=== PATIENT | female | born 1955 | race Caucasian/White ===

== ENCOUNTER → 2020-02-20 14:01 | Outpatient (BNVA) | payer MEDICARE, MEDICAID, SELFPAY | PROVIDERS: PCP Internal Medicine; Visit Provider Student in an Organized Health Care Education/Training Program | DX: R76.8 Other specified abnormal immunological findings in serum (principal); M35.01 Sjogren syndrome with keratoconjunctivitis | CPT/HCPCS: Q3014 ==

== ENCOUNTER 2020-02-23 09:45 | Outpatient (REF) | payer MEDICARE, MEDICAID, SELFPAY ==
[2020-02-23 10:33] LABS: MANUAL DIFF FLAG NO
[2020-02-23 10:38] LABS: Basophils Percent Auto 0.5 % (0-2); Eosinophils Absolute Auto 0.1 X10*3/uL (0.0-0.4); Hematocrit 37.4 % (37-47); Hemoglobin 12.5 g/dl (12.0-16.0); Imm Gran Abs Auto 0.03 X10*3/uL (0.00-0.03); Imm Gran Pct Auto 0.8 % (0.0-0.4); Lymphocytes Absolute Auto 1.4 X10*3/uL (1.2-4.9); Lymphocytes Percent Auto 38.2 % (20-40); Mean Corpuscular HGB Conc 33.4 g/dl (31.0-35.0); Mean Corpuscular Hemoglobin 28.2 pg (27.0-33.0); Mean Corpuscular Volume 84.2 fL (80-98); Monocytes Absolute Auto 0.4 X10*3/uL (0.1-1.2); Monocytes Percent Auto 9.6 % (2-11); Neutrophils Absolute Auto 1.7 X10*3/uL (2.0-8.3); Neutrophils Percent Auto 47.9 % (45-73); Platelet Count 264 X10*3/uL (160-400); Red Blood Count 4.44 X10*6/uL (4.20-5.50); Red Cell Distribution Width 13.4 % (11.0-16.0); White Blood Count 3.6 X10*3/uL (4.8-10.8)
[2020-02-23 11:02] LABS: Alanine Aminotransferase 10 U/L (0-31); Albumin Level 4.4 g/dL (3.5-5.0); Alkaline Phosphatase 52 U/L (39-117); Anion Gap 13 (12-20); Aspartate Amino Transferase 15 U/L (5-31); Bilirubin Total 0.9 mg/dL (0.0-1.0); Blood Urea Nitrogen 14 mg/dL (9-16); C Reactive Protein 0.41 mg/dL (< or = 0.50); Calcium 9.4 mg/dL (8.4-10.2); Carbon Dioxide 29 mmol/L (22-29); Chloride 103 mmol/L (96-108); Estimated Glomerular Filt Rate > 60; Glucose Random 86 mg/dL (60-115); Potassium 3.8 mmol/l (3.3-5.1); Sodium 141 mmol/L (135-145); Total Protein 7.1 g/dL (6.5-8.0)
[2020-02-23 11:04] LABS: Appearance Urine CLEAR; Color Urine YELLOW; Glucose Urine UA NEG (NEG); Leukocyte Esterase Urine NEG (NEG); Nitrite Urine NEG (NEG); PH 6.5 (5.0-8.0); Specific Gravity - Urine 1.015 (1.005-1.025); Urine Blood NEG (NEG); Urine Ketones NEG (NEG); Urine Protein NEG (NEG-TRACE)
[2020-02-23 11:12] LABS: RBC Urine 0-2 /HPF (0); WBC Urine 0-2 /HPF (0-4)
[2020-02-23 11:27] LABS: Erythrocyte Sedimentation Rate 25 MM/HR (0-20)
[2020-02-24 13:37] LABS: Anti DNA DS Antibody <1 IU/mL; Complement C3 96 mg/dL (83-193)
== END 2020-02-23 09:46 | disposition home or self-care (01) ==
LOC: HO.LAB 09:45
PROVIDERS: PCP Internal Medicine; Visit Provider Student in an Organized Health Care Education/Training Program
DX: R76.8 Other specified abnormal immunological findings in serum (principal)
CPT/HCPCS: 36415; 80053; 81001; 85025; 85652; 86140; 86160; 86225

== ENCOUNTER → 2020-03-04 11:22 | Outpatient (BNVA) | payer MEDICARE, MEDICAID, SELFPAY | PROVIDERS: PCP Internal Medicine; Visit Provider Physician Assistant | DX: Z13.89 Encounter for screening for other disorder (principal) | CPT/HCPCS: Q3014 ==

== ENCOUNTER 2020-03-24 09:31 | Outpatient (REF) | payer MEDICARE, MEDICAID, SELFPAY ==
--- NOTE | ~2020-03-24 | US_ITS ---
EXAMINATION: US EXTRACRANIAL CAROTID DUPLEX, BILATERAL CLINICAL INFORMATION: Syncope COMPARISON: None TECHNIQUE: Real-time ultrasound and Doppler techniques (integrating B-mode 2-D vascular images, Doppler spectral analysis and color-flow Doppler imaging) were utilized to interrogate the extracranial carotid arteries, the vertebral arteries and proximal subclavian arteries bilaterally. The degree of stenosis is determined by criteria similar to NASCET. FINDINGS: Right Side: 1. There is mild atherosclerotic plaque seen in the bifurcation/proximal ICA region. 2. The common carotid artery PSV proximally is 96.7 cm/s and distally 83.3 cm/s. 3. The proximal internal carotid artery velocities are 44.5 cm/s systolic and 10.5 cm/s diastolic. 4. The proximal external carotid artery PSV is 89.1 cm/s. 5. The vertebral artery shows antegrade flow. 6. The subclavian artery waveforms are normal. Left Side: 1. There is mild atherosclerotic plaque seen in the bifurcation/proximal ICA region. 2. The common carotid artery PSV proximally is 95.6 cm/s and distally 90.3 cm/s. 3. The proximal internal carotid artery velocities are 66.8 cm/s systolic and 18.1 cm/s diastolic. 4. The proximal external carotid artery PSV is 57.8 cm/s. 5. The vertebral artery shows antegrade flow. 6. The subclavian artery waveforms are normal. US/US carotid duplex BI IMPRESSION: 1. RIGHT: Minimal, non-hemodynamically significant stenosis of the proximal right internal carotid artery corresponding to a 0-49% stenosis by velocity criteria. 2. LEFT: Minimal, non-hemodynamically significant stenosis of the proximal left internal carotid artery corresponding to a 0-49% stenosis by velocity criteria.
== END 2020-03-24 09:32 | disposition home or self-care (01) ==
LOC: HO.US 09:31
PROVIDERS: PCP Nurse Practitioner Primary Care; Visit Provider Nurse Practitioner Primary Care
DX: I70.209 Unspecified atherosclerosis of native arteries of extremities, unspecified extremity (principal); R42 Dizziness and giddiness
CPT/HCPCS: 93880

== ENCOUNTER 2020-04-06 12:38 | Outpatient (REF) | payer MEDICARE, MEDICAID, SELFPAY ==
--- NOTE | ~2020-04-06 | MM_ITS ---
EXAMINATION: MM SCREENING DIGITAL BREAST TOMOSYNTHESIS, BILATERAL CLINICAL INFORMATION: Screening. Asymptomatic. No family history breast cancer. Prior mammography from [place] currently unavailable. Age 64. The lifetime risk of breast cancer based on the Tyrer-Cuzick Model is 3%. COMPARISON: None. TECHNIQUE: Digital breast tomosynthesis is performed in both the craniocaudal and mediolateral oblique views along with computer-aided detection (CAD). Synthesized 2D images are generated from the tomosynthesis. Additional right MLO view is provided. FINDINGS: There are scattered areas of fibroglandular density (ACR BI-RADS breast composition Category b). There are no significant masses, abnormal calcifications, or other abnormalities. The axillary and skin contours are unremarkable. MM/MM tomosynthesis screening BI IMPRESSION: No mammographic evidence of malignancy. ASSESSMENT: BI-RADS 1: Negative RECOMMENDATION: Routine annual mammography screening. This patient's information was entered into a reminder system with a target due date for their next mammogram.
== END 2020-04-06 12:39 | disposition home or self-care (01) ==
LOC: HO.MAMMO 12:38
PROVIDERS: PCP Nurse Practitioner Primary Care; Visit Provider Nurse Practitioner Primary Care
DX: Z12.31 Encounter for screening mammogram for malignant neoplasm of breast (principal)
CPT/HCPCS: 77063; 77067

== ENCOUNTER 2020-04-12 11:15 | Day surgery (SDC) | payer MEDICARE, MEDICAID, SELFPAY ==
[2020-04-12 11:24] VITALS: BMI 20.2
[2020-04-12 11:35] VITALS: BMI 20.2
[2020-04-12 11:53] VITALS: BP 126/78; PULSE 107; RESP 20; TEMP 36.2; O2SAT 98
--- NOTE | 2020-04-12 11:57 | W.PM.OPN ---
Operative Note Operative Note Date of Service: 04/16/20 Narrative: Pre-op diagnosis: Colon cancer screening, history of colon polyps, change in bowel habits Post-op diagnosis: other (Colon polyp, diverticulosis, hemorrhoids) Procedure: COLONOSCOPY TILL CECUM WITH BIOPSIES Consent: Indications for the procedure and potential complications of bleeding, perforation, reaction to medications and missed diagnosis were discussed with the patient and informed consent was obtained. Instrument: Olympus PCF H 190 L variable stiffness pediatric colonoscope Monitoring: Vital signs and clinical assessment, intermittent blood pressure monitoring, continuous EKG monitoring, Pulse oximetry and Carbon Dioxide monitoring were done throughout the procedure. Colon withdrawl time was 18 minutes. Procedure: The patient was placed in the left lateral decubitis position and pre-procedure medications were administered. After a digital rectal examination of the ano-rectum, the video colonoscope was inserted into the rectum and advanced through the colon to the cecum. The colonoscope was slowly withdrawn in a retrograde panoramic fashion and the colon mucosa was carefully examined including a retroflexed view of the rectum. Findings and interventions are described below. Procedure Difficulty: Without difficulty Findings: Terminal Ileum: Not evaluated Cecum: Normal Ascending Colon: A 3-4 mm diminutive polyp in proximal AC, removed with the cold biopsy Transverse Colon: Normal Descending Colon: Normal Sigmoid Colon: Moderate diverticulosis Rectum: Normal Ano-rectum: Small internal hemorrhoids Colon preparation: Excellent Impression and Post Procedure Diagnosis: Colonoscopy Findings: One diminutive polyp removed. Random biopsies were obtained from the right and left colon Moderate diverticulosis seen in the sigmoid colon Small hemorrhoids on retroflexed exam. Plan: Await pathology results Patient has an appointment on in the GI Clinic with CRISTÓBAL Gómez. Repeat Colonoscopy interval based on path results - in 5 years if polyps are adenomatous and 10 years if polyps are hyperplastic. Above findings were reviewed with the patient and colon polyps and diverticulosis handouts were given in the discharge area Surgeon: Alvarado Pineda MD Anesthesia: MAC (Dr Mercado) Estimated blood loss (mL): 0 Pathology: other (A. RANDOM BXS COLON B. ASCENDING COLON POLYP C. RANDOM COLON BXS) Condition: stable Disposition: PACU
--- NOTE | 2020-04-12 11:57 | MHC.SHP ---
Pre-Procedural Eval Section A The patient is an INPATIENT: No The History & Physical has been completed within 30 days and I have reviewed it.: No Section B Chief Complaint: Change in Bowel Function Details of Present Illness: Colon cancer screening, hx of colon polyps, change in bowel habits Relevant Family History (Specify if Yes): No Relevant Social History: None Present Medications: see Short Stay Collaborative assessment Medical History: Significant History (JEREMY positive Left breast lump Sjogren's syndrome with keratoconjunctivitis sicca) History of Previous Operations: Relevant previous surgery/procedure and date(s) (H/O: hysterectomy Hx of cholecystectomy) Allergies: Allergies Allergy/AdvReac Type Severity Reaction Status Date / Time No Known Allergies Allergy Verified 02/20/20 14:02 [No Known Allergies*] Review of Systems Sugical H&P ROS: Negative: Constitution, Cardiovascular and Respiratory and Yes, Specify: Gastrointestinal (diarrhea alternating with constipation) Exam Surgical H&P Exam: Normal: Heart, Normal: Lungs, Normal: Extremities and Normal: Abdomen Plan Diagnosis/Plan: Unchanged I have reviewed the history and physical and performed a pertinent physical examination on my patient. No changes have occurred unless specified.
--- NOTE | 2020-04-12 11:58 | HO.ANESPROP2 ---
[facility] Active Problems Active Problems: All Active Problems (Updated 03/04/20 @ 15:26 by Vida Barnett PA-C) Change in bowel function (Acute) Sjogren's syndrome with keratoconjunctivitis sicca (Acute) JEREMY positive (Acute) Past Medical History Medical History JEREMY positive Left breast lump Sjogren's syndrome with keratoconjunctivitis sicca Family History Family History Daughter Asthma Sister SLE (systemic lupus erythematosus related syndrome) Surgical History Surgical History H/O: hysterectomy Hx of cholecystectomy Social History Social History Household Members: Family Are you a primary manager managed care to a significant other at home: Yes Do you presently have visiting nurse or other home services: No Alcohol intake: never Smoking Status: Never smoker Second Hand Smoke Exposure: Yes Use of substances other than those prescribed or required for medical reasons: No Have you been hit, kicked, punched, or otherwise hurt by someone within the past year? If so, by whom?: No Advance Directives: No Advance Directives Information Provided: Yes Recently lost weight without trying: No Current occupational status: unemployed Meds Allergies Allergy/AdvReac Type Severity Reaction Status Date / Time No Known Allergies Allergy Verified 02/20/20 14:02 [No Known Allergies*] Home Medications Medication Instructions Recorded Confirmed Last Taken Type alendronate 70 mg tablet 70 mg PO QWEEK 02/20/20 03/04/20 Unknown History cetirizine 10 mg tablet 10 mg PO DAILY PRN 02/20/20 03/04/20 Unknown History cholecalciferol (vitamin D3) 25 25 mcg PO DAILY 02/20/20 03/04/20 Unknown History mcg (1,000 unit) capsule hydroxyzine HCl 25 mg tablet 25 mg PO BID PRN 02/20/20 03/04/20 Unknown History levothyroxine 50 mcg tablet 50 mcg PO DAILY 02/20/20 03/04/20 Unknown History Exam Exam Date and Time: April 12, 2020 1158 Height,Weight and Vital Signs: Height 5 ft Weight 47.174 kg Airway Mallampati Class: II TM Dist: >3cm Neck ROM: Full Loose/Missing/Broken Teeth: No Heart: RRR Lungs: CTA Assessment and Plan Assessment Anesthesia Assessment: Anesthesia Plan Discussed and Chart Reviewed Final Anesthetic Review NPO: Yes ASA Class: II Final Preanesthetic Review: Meds/Allgs Chart Reviewed, Consent Obtained/Reviewed and Anes Risks/Benef Reviewed Patient Risk: Low Procedure Risk: Low Anesthetic Plan Anesthetic Plan: MAC: Disposition: Standard PACU
[2020-04-12] MEDS: Lactated Ringers 1,000 ML 50 ML IV (12:07)
[2020-04-12 12:45] VITALS: BP 99/62; PULSE 93; RESP 18; TEMP 35.9; O2SAT 100
[2020-04-12 13:00] VITALS: BP 115/68; PULSE 93; RESP 18; O2SAT 99
[2020-04-12 13:15] VITALS: BP 125/70; PULSE 88; RESP 16; O2SAT 100
--- NOTE | 2020-04-12 13:28 | PC.NURSE ---
[id number] OOB CH MONITORS AND IVF DCD IV DCD DRESSED SELF AT BS CALL FRANCO IN REACH
== END 2020-04-12 13:59 | disposition home or self-care (01) ==
PROVIDERS: PCP Internal Medicine; Visit Provider Internal Medicine Gastroenterology
PROC: 0DJD8ZZ Inspection of Lower Intestinal Tract, Via Natural or Artificial Opening Endoscopic (ICD-10-PCS; CPT 45378; principal; 2020-04-12 11:50)
DX: Z12.11 Encounter for screening for malignant neoplasm of colon (principal); Z86.010 Personal history of colon polyps; R19.4 Change in bowel habit; D12.2 Benign neoplasm of ascending colon; K57.30 Diverticulosis of large intestine without perforation or abscess without bleeding; K64.8 Other hemorrhoids; M35.00 Sjogren syndrome, unspecified; Z90.49 Acquired absence of other specified parts of digestive tract
CPT/HCPCS: 45380; 88305

== ENCOUNTER → 2020-04-20 09:02 | Outpatient (REF) | payer MEDICARE, MEDICAID, SELFPAY ==
--- NOTE | 2020-04-20 09:30 | CA_ITS ---
Transthoracic Echocardiogram Patient (Last, First, Middle): Nicolasa Reich, Gender: Female Date of : 1955 Age: 64 Procedure Date: 04/20/2020 Procedure Type: Transthoracic Echocardiogram Location: OP Height: 142.24 cm Weight: 47.17 kg BSA: 1.34 m2 Heart Rate: bpm BP: 116 / 62 mmHg Study Lead: RUDY Referring MD: Rosanne Ayala NP Feather Stitcher: Pedro Buckner MD Symptoms: R42 DIZZINESS GIDDINESS Study Quality: Good ECG Rhythm: Sinus Conclusions: - Essentially normal study Findings Left Ventricle Normal left ventricular size, thickness, and systolic function. The visually estimated ejection fraction is between 60-65%. Diastolic function is normal for age. Right Ventricle Normal right ventricular cavity size and systolic function. Atria Both atria are normal in size. There is a mobile atrial septum noted. Interatrial shunt cannot be excluded. Aortic Valve Normal aortic valve structure and function. There is no aortic valve stenosis. There is no aortic valve regurgitation. Mitral Valve Normal mitral valve structure and function. There is trace mitral valve regurgitation. There is no mitral valve stenosis. Pulmonic Valve The pulmonic valve was not well visualized. Tricuspid Valve Likely normal tricuspid valve structure and function. There is trace tricuspid valve regurgitation. The right ventricular systolic pressure is normal. The right ventricular systolic pressure is 23 mmHg. Normal right atrial pressure. There is no evidence of pulmonary hypertension. Great Vessels All visible segments of the aorta are normal in size. The pulmonary artery was not well visualized. Venous The inferior vena cava is normal in size and collapses greater than 50% with inspiration. Pericardium/Pleural There is no evidence of pericardial effusion. Prior Study Comparison No prior study available for comparison. Recommendations, Care & Conclusions Recommend contrast study to evaluate intracardiac shunting. Measurements 2D Linear Measurements IVSd: 0.65 0.6-0.9/0.6-1.0 cm LVIDd: 3.95 3.9-5.3/4.2-5.9 cm LVIDs: 2.69 2.0-3.6 cm LVPWd: 0.61 0.7-1.1 cm LV Mass: 82.99 67-162/88-224 g LVOT Diam: 1.83 3.0+(-)1.3 cm Mitral Valve MV Pk E: 0.82 MV PK A: 0.73 MV Decel Time: 197.76 E/A: 1.12 E'Lateral: 0.10 E'Medial: 0.07 Decel [place]: 4.14 Aortic Valve AoV Pk Thanh: 1.26 AoV Pk Grad: 6.32 LVOT LVOT Pk Thanh: 0.87 LVOT Mn Thanh: 0.60 LVOT VTI: 0.20 LVOT Pk Grad: 3.05 LVOT Mn Grad: 1.67 LVOT Diam: 1.83 LVOT Area: 2.64 Diastolic Function MV Pk E: 0.82 MV Pk A: 0.73 E/A: 1.12 E'Medial: 0.07 E' Laterial: 0.10 Tricuspid Valve TR Pk Thanh: 2.27 TR Pk Grad: 20.54 RA Press: 3.00 RVSP: 23.00 Great Vessels Aorta Ao Asc: 2.48 2.1-3.4 cm Updated in Other Vendor System with Status of Final Pedro Buckner MD electronically signed on 04/21/2020 5:30:12 PM with status of Final
== END ==
LOC: HO.CARD 09:02
PROVIDERS: PCP Nurse Practitioner Primary Care; Visit Provider Nurse Practitioner Primary Care
DX: R42 Dizziness and giddiness (principal)
CPT/HCPCS: 93306

== ENCOUNTER → 2020-05-03 11:12 | Outpatient (BNVA) | payer MEDICARE, MEDICAID, SELFPAY | PROVIDERS: PCP Nurse Practitioner Primary Care; Visit Provider Physician Assistant | DX: Z13.89 Encounter for screening for other disorder (principal) | CPT/HCPCS: Q3014 ==

== ENCOUNTER 2020-06-17 12:51 | Outpatient (REF) | payer MEDICARE, MEDICAID, SELFPAY ==
--- NOTE | ~2020-06-17 | XR_ITS ---
EXAMINATION: XR SHOULDER, RIGHT CLINICAL INFORMATION: Sigmoid syndrome and conjunctivitis COMPARISON: None TECHNIQUE: AP external rotation, Grashey, scapular Y, and axillary views of the right shoulder. FINDINGS: Bone alignment is normal. No fracture or dislocation is seen. The glenohumeral joint is normal. There is arthritis at the acromioclavicular joint. Soft tissues are unremarkable. XR/XR shoulder RT min 2V IMPRESSION: Arthritis at the acromioclavicular joint.
[2020-06-17 14:18] LABS: MANUAL DIFF FLAG NO
[2020-06-17 14:23] LABS: Basophils Absolute Auto 0.1 X10*3/uL (0.0-0.2); Basophils Percent Auto 1.4 % (0-2); Eosinophils Absolute Auto 0.2 X10*3/uL (0.0-0.4); Eosinophils Percent Auto 4.9 % (0-4); Glucose Urine UA NEG (NEG); Hematocrit 38.2 % (37-47); Hemoglobin 12.4 g/dl (12.0-16.0); Leukocyte Esterase Urine NEG (NEG); Lymphocytes Absolute Auto 1.4 X10*3/uL (1.2-4.9); Lymphocytes Percent Auto 37.8 % (20-40); Mean Corpuscular HGB Conc 32.5 g/dl (31.0-35.0); Mean Corpuscular Hemoglobin 27.4 pg (27.0-33.0); Mean Corpuscular Volume 84.5 fL (80-98); Monocytes Absolute Auto 0.3 X10*3/uL (0.1-1.2); Monocytes Percent Auto 8.7 % (2-11); Neutrophils Absolute Auto 1.7 X10*3/uL (2.0-8.3); Neutrophils Percent Auto 47.2 % (45-73); Nitrite Urine NEG (NEG); Platelet Count 276 X10*3/uL (160-400); Red Blood Count 4.52 X10*6/uL (4.20-5.50); Red Cell Distribution Width 13.2 % (11.0-16.0); Urine Blood NEG (NEG); Urine Ketones NEG (NEG); Urine Protein NEG (NEG-TRACE); White Blood Count 3.7 X10*3/uL (4.8-10.8)
[2020-06-17 14:26] LABS: Appearance Urine CLEAR; Color Urine YELLOW
[2020-06-17 14:49] LABS: Alanine Aminotransferase 11 U/L (0-31); Albumin Level 4.5 g/dL (3.5-5.0); Alkaline Phosphatase 55 U/L (39-117); Anion Gap 12 (12-20); Aspartate Amino Transferase 16 U/L (5-31); Bilirubin Total 0.5 mg/dL (0.0-1.0); Blood Urea Nitrogen 15 mg/dL (9-16); Calcium 9.8 mg/dL (8.4-10.2); Carbon Dioxide 29 mmol/L (22-29); Chloride 105 mmol/L (96-108); Estimated Glomerular Filt Rate > 60; Glucose Random 95 mg/dL (60-115); Sodium 142 mmol/L (135-145)
[2020-06-17 15:00] LABS: Bacteria Urine TRACE /LPF; RBC Urine 0-2 /HPF (0); Squamous Epithelial Cell Urine TRACE /LPF; WBC Urine 0 /HPF (0-4)
[2020-06-17 15:41] LABS: Erythrocyte Sedimentation Rate 17 MM/HR (0-20)
[2020-06-18 09:46] LABS: Anti DNA DS Antibody <1 IU/mL
[2020-06-18 12:47] LABS: Complement C3 123 mg/dL (83-193)
== END 2020-06-17 12:52 | disposition home or self-care (01) ==
LOC: HO.LAB 12:51
PROVIDERS: PCP Internal Medicine; Visit Provider Student in an Organized Health Care Education/Training Program
DX: R76.8 Other specified abnormal immunological findings in serum (principal); M35.01 Sjogren syndrome with keratoconjunctivitis
CPT/HCPCS: 36415; 73030; 80053; 81001; 85025; 85652; 86140; 86160; 86225; 99212

== ENCOUNTER 2020-09-23 10:00 | Outpatient (RCR) | payer MEDICARE, MEDICAID, SELFPAY ==
--- NOTE | 2020-09-15 14:00 | MHC.PT.EP ---
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 OBJECTIVE FINDINGS: LIMITED ROM Rt SH, DECR POSTURE/ TIGHT PECT, WEAKNES IN POST RC/ SCAP MM, AND PAIN IN Rt SH GIRDLE/ SCAP MM. FUNCTIONAL LIMITATIONS INCLUDE DECR ABILITY TO GET DRESSED, SHOWERED, GROCERIES/ LAUNDRY/ HOUSE CHORES DUE TO Rt SH PAIN. Pt'S PAIN IN Rt DELT REGION INFLUENCED HER OVERALL ACTIVITY KIRK- (+) IMPINGEMENT SIGN, POSTURAL INFLUENCE Frequency and Duration: The patient will be seen 2x WK x 5 WKS Short Term Goals: Pt'S Rt SH PAIN DECR TO 2-3/10 W LIGHT ADLs IN 3 WKS Pt INDEP W SELF POSTURAL/ POSITIONING TO REDUCE STRESS ON Rt SH GIRDLE/ CERV SOFT TISSUES IN 2 WKS Pt IMPROVE AROM Rt SH IN 2 WKS Longterm Goals: Pt INDEP HEP AND SELF-SX MGMT TECHN IN 5 WKS Pt IMPROVE Rt SH GIRDLE STRENGTH TO ENABLE HER TO RESUME REG ADLs W/O EXACERB Rt SH IN 5 WKS Treatment Plan: Modalities to reduce pain, spasms and effusion. Manual therapy to restore motion and function. Therapeutic exercise to improve strength and flexibility. Neuromuscular re-education for posture and balance. Therapeutic activities to return to functional activities of daily living. Electronically signed by: Rukhsana Torres,PT Please sign and return to therapist. Thank you for your referral.
--- NOTE | 2020-10-12 13:43 | MHC.PT.DC ---
[facility] [place] Office [place] Office [place] Office [address] Juanita Saavedra [address] [phone] F: [phone] F: [phone] F: [phone] F: [phone] Physical Therapy Discharge Report Diagnosis: Rt SHOULDER PAIN - SICCA SYNDROME W KERATOCONJUNCTIVITIS Date of Surgery: Date of Evaluation: 09/15/20 Date of Discharge: 10/12/20 Treatments to Date: 3 Cancellations to Date: 0 No Shows to Date: 4 Discharge Status: Visit Non-compliance Discharge Summary: Pt has NS x 4 D/C from PT today. Pt DID NOT ACHIEVE HER PT GOALS DUE TO POOR ATTENDANCE / PER NO-SHOW POLICY. Electronically signed by: Eli Rich DATA MINER; DEJAH Torres,PT Please sign and return to therapist. Thank you for your referral.
== END 2020-10-12 13:44 | disposition home or self-care (01) ==
LOC: HO.PT 10:00
PROVIDERS: PCP Nurse Practitioner Primary Care; Visit Provider Student in an Organized Health Care Education/Training Program
DX: M35.01 Sjogren syndrome with keratoconjunctivitis (principal)
CPT/HCPCS: 97110; 97161

== ENCOUNTER → 2020-09-23 13:28 | Outpatient (BNVA) | payer MEDICARE, MEDICAID, SELFPAY | PROVIDERS: PCP Internal Medicine; Visit Provider Student in an Organized Health Care Education/Training Program | DX: M35.01 Sjogren syndrome with keratoconjunctivitis (principal); R76.8 Other specified abnormal immunological findings in serum | CPT/HCPCS: 99212 ==

== ENCOUNTER → 2020-09-30 07:37 | Outpatient (REF) | payer MEDICARE, MEDICAID, SELFPAY ==
--- NOTE | 2020-09-30 07:41 | CA_ITS ---
Transthoracic Echocardiogram Patient (Last, First, Middle): Nicolasa Reich, Gender: Female Date of : 1955 Age: 64 Procedure Date: 09/30/2020 Procedure Type: Transthoracic Echocardiogram Location: OP Height: 157.48 cm Weight: 48.54 kg BSA: 1.47 m2 Heart Rate: bpm Spike Maker: FAIZA Hdez MD: Joel Brown MD Harness Maker: Pedro Buckner MD Symptoms: SYNCOPE Study Quality: Good ECG Rhythm: Sinus Conclusions: - No evidence of PFO Findings Atria There is no evidence of interatrial shunt by agitated saline. Prior Study Comparison No significant change compared to prior study dated: 04/20/2020. Updated in Other Vendor System with Status of Final Pedro Buckner MD electronically signed on 09/30/2020 12:44:56 PM with status of Final
== END ==
LOC: HO.CARD 07:37
PROVIDERS: Visit Provider Internal Medicine Cardiovascular Disease
DX: R55 Syncope and collapse (principal)
CPT/HCPCS: 93308

== ENCOUNTER 2021-01-18 10:42 | Outpatient (REF) | payer MEDICARE, MEDICAID, SELFPAY | END 2021-01-18 10:43 | disposition home or self-care (01) | LOC: HO.LAB 10:42 | PROVIDERS: Visit Provider Internal Medicine | DX: Z20.822 Contact with and (suspected) exposure to COVID-19 (principal) | CPT/HCPCS: C9803; U0003; U0005 ==

== ENCOUNTER 2021-06-08 14:43 | Outpatient (REF) | payer MEDICARE, MEDICAID, SELFPAY ==
--- NOTE | ~2021-06-08 | MM_ITS ---
EXAMINATION: MM SCREENING DIGITAL BREAST TOMOSYNTHESIS, BILATERAL CLINICAL INFORMATION: Screening. Asymptomatic. The lifetime risk of breast cancer based on the Tyrer-Cuzick Model is 2%. COMPARISON: Mammography: 04/06/2020 (new baseline). TECHNIQUE: Digital breast tomosynthesis is performed in both the craniocaudal and mediolateral oblique views along with computer-aided detection (CAD). Synthesized 2D images are generated from the tomosynthesis. FINDINGS: There are scattered areas of fibroglandular density (ACR BI-RADS breast composition Category b). Right breast parenchymal pattern is similar to prior new baseline exam. There is no developing density or interval mass. Neither breast shows abnormal calcifications. The axilla and skin contours are unremarkable. Left MLO view has subtle nodular asymmetric density mid depth approximately 0.8 cm size. There is no correlate on CC view and finding is likely related to incompletely compressed glandular tissue or summation artifact. Patient will be recalled for additional imaging. MM/MM tomosynthesis screening BI IMPRESSION: Left: -Asymmetric density central breast on MLO view, likely summation artifact or incompletely compressed glandular tissue. Right: No mammographic evidence of malignancy. ASSESSMENT: BI-RADS 0: Incomplete - Need Additional Imaging Evaluation RECOMMENDATION: 1. Additional views of the left breast (spot MLO, standard ML). 2. Targeted ultrasound if warranted after review of the additional views. 3. Radiology department staff will contact the patient for additional imaging. This patient's information was entered into a reminder system with a target due date for their next mammogram.
== END 2021-06-08 14:44 | disposition home or self-care (01) ==
LOC: HO.MAMMO 14:43
PROVIDERS: PCP Nurse Practitioner Primary Care; Visit Provider Internal Medicine
DX: Z12.31 Encounter for screening mammogram for malignant neoplasm of breast (principal)
CPT/HCPCS: 77063; 77067

== ENCOUNTER 2021-06-20 14:17 | Outpatient (REF) | payer MEDICARE, MEDICAID, SELFPAY ==
--- NOTE | ~2021-06-20 | MM_ITS ---
EXAMINATION: MM DIAGNOSTIC DIGITAL MAMMOGRAPHY, LEFT CLINICAL INFORMATION: Recall from screening for asymmetric density central breast on MLO view, likely summation artifact or incompletely compressed glandular tissue. COMPARISON: Mammography: 06/08/2021, 04/06/2020 (new baseline). TECHNIQUE: Digital mammography is performed in the following views: ML, spot MLO. FINDINGS: There are scattered areas of fibroglandular density (ACR BI-RADS breast composition Category b). The additional views show fibroglandular densities similar to the new baseline exam 2020. There is no interval mass or architectural abnormality. Results are discussed with the patient at time of visit, using an awning spreader. MM/MM added views LT IMPRESSION: Additional views show fibroglandular densities similar to new baseline exam 2020. ASSESSMENT: BI-RADS 2: Benign RECOMMENDATION: Routine annual mammography screening. This patient's information was entered into a reminder system with a target due date for their next mammogram.
== END 2021-06-20 14:18 | disposition home or self-care (01) ==
LOC: HO.MAMMO 14:17
PROVIDERS: PCP Nurse Practitioner Primary Care; Visit Provider Internal Medicine
DX: N64.89 Other specified disorders of breast (principal)
CPT/HCPCS: 77065

== ENCOUNTER 2021-10-02 14:06 | Emergency (ER) | payer MEDICARE, MEDICAID, SELFPAY ==
--- NOTE | ~2021-10-02 | XR_ITS ---
EXAMINATION: XR CHEST CLINICAL INFORMATION: Dizziness COMPARISON: Chest x-ray 04/07/2019 TECHNIQUE: Frontal view of the chest was obtained. FINDINGS: The lungs are clear. No airspace consolidation, pleural effusion, or pneumothorax. The cardiomediastinal silhouette is within normal limits. No acute osseous injury. Surgical clips in the right upper quadrant consistent with prior cholecystectomy. XR/XR chest 1V IMPRESSION: No acute pulmonary process.
--- NOTE | ~2021-10-02 | CT_ITS ---
EXAMINATION: CT HEAD WITHOUT CONTRAST CLINICAL INFORMATION: Dizziness COMPARISON: Head CT April 07, 2019 TECHNIQUE: Contiguous axial imaging was performed from the skull base to vertex without intravenous administration of contrast. This CT examination was performed using dose optimization techniques as appropriate, variously including the following: *Automated exposure control *Adjustment of mA and/or kV according to patient size (this includes techniques or standardized protocols for targeted exams where dose is matched to indication/reason for exam; i.e. extremities or head) *Use of iterative reconstruction technique DLP: 540 mGy-cm FINDINGS: There is no evidence of acute intracranial hemorrhage or territorial infarction. No abnormal mass effect or midline shift is appreciated. Cordero-white differentiation is well preserved. No extra-axial fluid collections. The ventricular system and cortical sulci are normal in size The osseous structures and soft tissues are normal. The visualized paranasal sinuses and mastoid air cells are well aerated. CT/CT head/brain wo con IMPRESSION: No CT evidence for acute intracranial pathology.
[2021-10-02 14:09] VITALS: BP 166/83; PULSE 105; RESP 19; TEMP 36.6; O2SAT 98; BMI 21.2
--- NOTE | 2021-10-02 14:51 | ECG_ITS ---
Test Reason : Dizziness Blood Pressure : / mmHG Vent. Rate : 088 BPM Atrial Rate : 088 BPM P-R Int : 168 ms QRS Dur : 080 ms QT Int : 356 ms P-R-T Axes : 066 011 044 degrees QTc Int : 430 ms Normal sinus rhythm with sinus arrhythmia Normal ECG When compared with ECG of 07-APR-2019 18:10, Heart rate has decreased Referred By: Zaki Bowles Electronically Signed By:MARK GARCIAS
--- NOTE | 2021-10-02 14:52 | ED_ITS ---
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 Patient is complaining of dizziness described as room spinning and walking unbalanced, patient's symptoms started 18 days ago, symptoms were intermittent comes and goes, for the past 2-3 days symptoms been constant all day, dizziness is worsening with changing position or turning the head from side to side, declined any other neurological deficit or numbness. Patient stated that her dizziness started after using Fosamax for osteoporosis. No relieving factor but symptoms is worsening with changing position, associated with nausea but no vomiting. Patient had similar symptoms about a year ago was seen and evaluated by outside neurologist patient stated that she had a CT and MRI of the head. Related Data Home Medications Medication Instructions Recorded Confirmed alendronate 70 mg tablet (Fosamax) 70 mg PO QWEEK 02/20/20 09/23/20 cholecalciferol (vitamin D3) 25 25 mcg PO DAILY 02/20/20 09/23/20 mcg (1,000 unit) capsule levothyroxine 50 mcg tablet 50 mcg PO DAILY 02/20/20 09/23/20 (Synthroid) Previous Rx's Medication Instructions Recorded acetaminophen 650 mg 650 mg PO Q8H PRN pain #90 tabs 09/23/20 tablet,extended release (Tylenol Arthritis Pain) diazepam 2 mg tablet (Valium) 2 mg PO BEDTIME PRN dizziness or 10/02/21 vertigo #7 tabs meclizine 25 mg tablet 25 mg PO BID PRN motion sickness 10/02/21 #20 tabs Allergies Allergy/AdvReac Type Severity Reaction Status Date / Time No Known Allergies Allergy Verified 09/23/20 13:35 [No Known Allergies*] Review of Systems Review of Systems: All other systems are reviewed and are negative Constitutional: Reports as per HPI and Reports no additional constitutional complaints Eyes: Reports as per HPI and Reports no additional eye complaints Reports system reviewed and no additional complaints, except as documented Cardiovascular: Reports as per HPI and Reports no additional cardiovascular complaints Respiratory: Reports as per HPI and Reports no additional respiratory complaints Gastrointestinal: Reports as per HPI and Reports no additional gastrointestinal complaints Genitourinary: Reports no additional female genitourinary complaints Musculoskeletal: Reports no additional musculoskeletal complaints Skin/Breast: Reports system reviewed and no additional complaints, except as docu Psychiatric: Reports no additional psychiatric complaints Endocrine: Reports no additional endocrine complaints Hematologic/Lymphatic: Reports no additional hematologic/lymphatic complaints Allergic/Immunologic: Reports no additional allergic/immunologic complaints Reports system reviewed and no additional complaints, except as documented and Reports Abnormal speech present [facility] Past Medical History Medical History JEREMY positive Left breast lump Sjogren's syndrome with keratoconjunctivitis sicca Surgical History H/O: hysterectomy Hx of cholecystectomy Family History Family History Daughter Asthma Sister SLE (systemic lupus erythematosus related syndrome) Social History Social History Household Members: Family 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 education 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 a 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 Blood pressure normal. Heart rate normal. Respiration rate normal. Temperature normal. O xygen saturation normal. Appearance: Alert. Oriented X3. No acute distress. Head: Normal external exam. Normocephalic. Atraumatic. No Mitchell signs noted. No raccoon eyes noted Eyes: PERRLA. EOMI. Conjunctiva and sclera normal. Eyelids normal. ENT: TM's Normal. Pharynx normal. Uvula midline. Moist mucous membranes. No trismus noted. No drooling noted. No muffled voice noted. Neck: Normal inspection. Neck supple. FROM. No adenopathy. Thyroid Normal. No meningeal signs. No neck mass noted. CVS: Normal heart rate and rhythm. Heart sound normal. No murmurs noted. Pulses normal throughout. Respiratory: No respiratory distress. Painless inspiration. Breath sounds normal. No wheezes/rales/rhonchi noted. Chest nontender. No accessory muscle usage noted or decreased air movement noted. Abdomen: Soft and nontender. Bowel sounds normal in all 4 quadrants. No dis tention noted. No organomegaly noted. No visible injury noted. Back: No CVA tenderness. Full range of motion noted. Skin: Skin warm and dry. Normal skin color. Normal skin turgor. No rashes/les ions/lacerations noted. Extremities: No lower extremity edema. Extremities exhibit normal range of motion. Extremities nontender. Neuro: Oriented X 3. Cranial nerve exam: II-XII are grossly intact No motor deficit. No sensory deficit. Reflexes normal. Cerebellar exam is within normal no [id number] dysmetria. Course Course Course Narrative: [age] female with chronic history of vertigo patient had multiple evaluation by several doctors including neurologist, and patient reported she had a negative CT/MRI done in [place], no other neurological deficit, patient feels better after given Valium and meclizine in the ED. as discussed with the patient to be careful when changing position to avoid mechanical falling and follow-up with ENT Dr. Chang as an outpatient. [facility] - Dizziness Medical Records Attestation: I reviewed the patient's medical records. Lab Data Attestation: I reviewed the patient's lab results. Result diagrams: 10/02/21 15:25 10/02/21 15:25 Labs: Lab Results 10/02/21 10/02/21 10/02/21 Range/Units 15:25 15:25 15:25 WBC 3.3 L (4.8-10.8) X10*3/uL RBC 4.48 (4.20-5.50) X10*6/uL Hgb 12.3 (12.0-16.0) g/dl Hct 36.5 L (37.0-47.0) % MCV 81.5 (80.0-98.0) fL MCH 27.5 (27.0-33.0) pg MCHC 33.7 (31.0-35.0) g/dl RDW 13.8 (11.0-16.0) % Plt Count 241 (160-400) X10*3/uL MPV 9.8 (9.4-12.3) fL Immature Gran % (Auto) 0.3 (0.0-0.4) % Neut % (Auto) 54.8 (45-73) % Lymph % (Auto) 28.4 (20-40) % Doddridge % (Auto) 11.7 H (2-11) % Eos % (Auto) 3.9 (0-4) % Baso % (Auto) 0.9 (0-2) % Lymph # (Auto) 1.0 L (1.2-4.9) X10*3/uL Doddridge # (Auto) 0.4 (0.1-1.2) X10*3/uL Eos # (Auto) 0.1 (0.0-0.4) X10*3/uL Baso # (Auto) 0.0 (0.0-0.2) X10*3/uL Abs Immat Gran (auto) 0.01 (0.00-0.03) X10*3/uL Absolute Neuts (auto) 1.8 L (2.0-8.3) x10*3/uL Absolute Nucleated RBC 0.000 (0.0-0.012) X10*3/uL Nucleated RBC % (auto) 0.0 (0.0-0.2) /100WBC Sodium 141 (135-145) mmol/L Potassium 3.4 (3.3-5.1) mmol/L Chloride 103 (96-108) mmol/L Carbon Dioxide 27 (22-29) mmol/L Anion Gap 14 (12-20) BUN 11 (9-16) mg/dL Creatinine 0.70 (0.5-1.4) mg/dL Estim Creat Clear Calc 53.1 Estimated GFR > 60 Random Glucose 120 H (60-115) mg/dL Calcium 9.2 D (8.4-10.2) mg/dL Total Bilirubin 0.8 (0.0-1.0) mg/dL Direct Bilirubin 0.3 (0.0-0.5) mg/dL AST 16 (5-31) U/L ALT 11 (0-31) U/L Alkaline Phosphatase 59 (39-117) U/L Troponin I High Sens < 3.5 (<3.5-17.0) ng/L B-Natriuretic Peptide 40 (<100) pg/mL Total Protein 7.2 (6.5-8.0) g/dL Albumin 4.4 (3.5-5.0) g/dL Lipase 27 (8-78) U/L Urine Color Urine Appearance Urine pH (5.0-8.0) Ur Specific Jones (1.005-1.025) Urine Protein (Neg-Trace) mg/dL Urine Glucose (UA) (Negative) mg/dL Urine Ketones (Negative) mg/dL Urine Blood (Negative) Urine Nitrite (Negative) Ur Leukocyte Esterase (Negative) COVID-19 (JEREMY) (Negative) COVID-19 Clin Com 10/02/21 10/02/21 Range/Units 15:25 15:48 WBC (4.8-10.8) X10*3/uL RBC (4.20-5.50) X10*6/uL Hgb (12.0-16.0) g/dl Hct (37.0-47.0) % MCV (80.0-98.0) fL MCH (27.0-33.0) pg MCHC (31.0-35.0) g/dl RDW (11.0-16.0) % Plt Count (160-400) X10*3/uL MPV (9.4-12.3) fL Immature Gran % (Auto) (0.0-0.4) % Neut % (Auto) (45-73) % Lymph % (Auto) (20-40) % Doddridge % (Auto) (2-11) % Eos % (Auto) (0-4) % Baso % (Auto) (0-2) % Lymph # (Auto) (1.2-4.9) X10*3/uL Doddridge # (Auto) (0.1-1.2) X10*3/uL Eos # (Auto) (0.0-0.4) X10*3/uL Baso # (Auto) (0.0-0.2) X10*3/uL Abs Immat Gran (auto) (0.00-0.03) X10*3/uL Absolute Neuts (auto) (2.0-8.3) x10*3/uL Absolute Nucleated RBC (0.0-0.012) X10*3/uL Nucleated RBC % (auto) (0.0-0.2) /100WBC Sodium (135-145) mmol/L Potassium (3.3-5.1) mmol/L Chloride (96-108) mmol/L Carbon Dioxide (22-29) mmol/L Anion Gap (12-20) BUN (9-16) mg/dL Creatinine (0.5-1.4) mg/dL Estim Creat Clear Calc Estimated GFR Random Glucose (60-115) mg/dL Calcium (8.4-10.2) mg/dL Total Bilirubin (0.0-1.0) mg/dL Direct Bilirubin (0.0-0.5) mg/dL AST (5-31) U/L ALT (0-31) U/L Alkaline Phosphatase (39-117) U/L Troponin I High Sens (<3.5-17.0) ng/L B-Natriuretic Peptide (<100) pg/mL Total Protein (6.5-8.0) g/dL Albumin (3.5-5.0) g/dL Lipase (8-78) U/L Urine Color Yellow Urine Appearance Clear Urine pH 7.0 (5.0-8.0) Ur Specific Jones <= 1.005 (1.005-1.025) Urine Protein Negative (Neg-Trace) mg/dL Urine Glucose (UA) Negative (Negative) mg/dL Urine Ketones Negative (Negative) mg/dL Urine Blood Negative (Negative) Urine Nitrite Negative (Negative) Ur Leukocyte Esterase Negative (Negative) COVID-19 (JEREMY) Negative (Negative) COVID-19 Clin Com See Note Imaging Data Chest x-ray: Attestation: I personally reviewed and interpreted this imaging study as follows: Radiologist's impression: No acute pulmonary process CT scan - head: Attestation: I personally reviewed and interpreted this imaging study as f ollows: Radiologist's impression: No CT evidence for acute intracranial pathology. ECG Data Attestation: I personally reviewed and interpreted this ECG as follows: Interpretation: Normal sinus rhythm with sinus arrhythmia at 88 beats per minutes, normal intervals, no ST-T changes. Discharge Plan Discharge Clinical Impression: Benign paroxysmal positional vertigo Patient Disposition: Home, Self-Care Instructions: Benign Paroxysmal Positional Vertigo (ED) Prescriptions: New meclizine 25 mg tablet 25 mg PO BID PRN (Reason: motion sickness) Qty: 20 0RF diazepam [Valium] 2 mg tablet 2 mg PO BEDTIME PRN (Reason: dizziness or vertigo) Qty: 7 0RF No Action levothyroxine [Synthroid] 50 mcg tablet 50 mcg PO DAILY cholecalciferol (vitamin D3) 25 mcg (1,000 unit) capsule 25 mcg PO DAILY alendronate [Fosamax] 70 mg tablet 70 mg PO QWEEK acetaminophen [Tylenol Arthritis Pain] 650 mg tablet extended release 650 mg PO Q8H PRN (Reason: pain) Qty: 90 4RF Referrals: Kwasi Chang [Physician] - Rosanne Ayala ROOM SERVICE WAITER/WAITRESS [Primary Care Provider] -
[2021-10-02 15:32] LABS: MANUAL DIFF FLAG NO
[2021-10-02] MEDS: ondansetron HCL 4 MG/2 ML VIAL IVPUSH (15:34)
[2021-10-02] MEDS: Meclizine HCl 25 MG TABLET PO (15:34)
[2021-10-02] MEDS: diazePAM 2 MG TABLET PO (15:34)
[2021-10-02] MEDS: 0.9 % Sodium Chloride 1,000 ML 999 ML IV ×2 (15:40)
[2021-10-02 15:47] LABS: Basophils Percent Auto 0.9 % (0-2); Eosinophils Absolute Auto 0.1 X10*3/uL (0.0-0.4); Eosinophils Percent Auto 3.9 % (0-4); Hematocrit 36.5 % (37.0-47.0); Hemoglobin 12.3 g/dl (12.0-16.0); Imm Gran Abs Auto 0.01 X10*3/uL (0.00-0.03); Imm Gran Pct Auto 0.3 % (0.0-0.4); Lymphocytes Percent Auto 28.4 % (20-40); Mean Corpuscular HGB Conc 33.7 g/dl (31.0-35.0); Mean Corpuscular Hemoglobin 27.5 pg (27.0-33.0); Mean Corpuscular Volume 81.5 fL (80.0-98.0); Mean Platelet Volume 9.8 fL (9.4-12.3); Monocytes Absolute Auto 0.4 X10*3/uL (0.1-1.2); Monocytes Percent Auto 11.7 % (2-11); Neutrophils Absolute Auto 1.8 x10*3/uL (2.0-8.3); Neutrophils Percent Auto 54.8 % (45-73); Platelet Count 241 X10*3/uL (160-400); Red Blood Count 4.48 X10*6/uL (4.20-5.50); Red Cell Distribution Width 13.8 % (11.0-16.0); White Blood Count 3.3 X10*3/uL (4.8-10.8)
[2021-10-02 15:48] LABS: Alanine Aminotransferase 11 U/L (0-31); Albumin Level 4.4 g/dL (3.5-5.0); Alkaline Phosphatase 59 U/L (39-117); Anion Gap 14 (12-20); Aspartate Amino Transferase 16 U/L (5-31); Bilirubin Direct 0.3 mg/dL (0.0-0.5); Bilirubin Total 0.8 mg/dL (0.0-1.0); Blood Urea Nitrogen 11 mg/dL (9-16); Calcium 9.2 mg/dL (8.4-10.2); Carbon Dioxide 27 mmol/L (22-29); Chloride 103 mmol/L (96-108); Creatinine Clr Calc Pharmacy 53.1; Estimated Glomerular Filt Rate > 60; Glucose Random 120 mg/dL (60-115); Lipase 27 U/L (8-78); Potassium 3.4 mmol/L (3.3-5.1); Sodium 141 mmol/L (135-145); Total Protein 7.2 g/dL (6.5-8.0)
[2021-10-02 15:49] LABS: COVID-19 Test Negative (Negative)
[2021-10-02 15:55] LABS: B Type Natriuretic Peptide 40 pg/mL (<100); Troponin-I High Sensitivity < 3.5 ng/L (<3.5-17.0)
[2021-10-02 15:58] LABS: Appearance Urine Clear; Color Urine Yellow; Glucose Urine UA Negative (Negative); Leukocyte Esterase Urine Negative (Negative); Nitrite Urine Negative (Negative); Specific Gravity - Urine <= 1.005 (1.005-1.025); Urine Blood Negative (Negative); Urine Ketones Negative (Negative); Urine Protein Negative (Neg-Trace)
== END 2021-10-02 17:06 | disposition home or self-care (01) ==
PROVIDERS: Emergency Provider Emergency Medicine; PCP Nurse Practitioner Primary Care
DX: H81.13 Benign paroxysmal vertigo, bilateral (principal); R51.9 Headache, unspecified; R06.02 Shortness of breath; Z20.822 Contact with and (suspected) exposure to COVID-19; Z79.899 Other long term (current) drug therapy
CPT/HCPCS: 70450; 71045; 80048; 80076; 81003; 83690; 83880; 84484; 85025; 87635; 93005; 96374; 99284; J2405

== ENCOUNTER 2022-06-27 07:36 | Outpatient (REF) | payer MEDICARE, MEDICAID, SELFPAY ==
--- NOTE | ~2022-06-27 | XR_ITS ---
EXAMINATION: XR KNEE, RIGHT XR KNEE, LEFT XR KNEE AP STANDING CLINICAL INFORMATION: Bilateral primary osteoarthritis. COMPARISON: None available. TECHNIQUE: Four views of the right knee. Four views of the left knee. AP bilateral standing view of the knees was obtained. FINDINGS: RIGHT KNEE: Bones and soft tissues are normal. No fracture or joint effusion. Alignment is anatomic. Joint spaces are well maintained. No abnormal soft tissue calcification. LEFT KNEE: Bones and soft tissues are normal. No fracture or joint effusion. Alignment is anatomic. Joint spaces are well maintained. No abnormal soft tissue calcification. XR/XR knee LT 3V IMPRESSION: Unremarkable bilateral knees.
--- NOTE | ~2022-06-27 | XR_ITS ---
EXAMINATION: XR KNEE, RIGHT XR KNEE, LEFT XR KNEE AP STANDING CLINICAL INFORMATION: Bilateral primary osteoarthritis. COMPARISON: None available. TECHNIQUE: Four views of the right knee. Four views of the left knee. AP bilateral standing view of the knees was obtained. FINDINGS: RIGHT KNEE: Bones and soft tissues are normal. No fracture or joint effusion. Alignment is anatomic. Joint spaces are well maintained. No abnormal soft tissue calcification. LEFT KNEE: Bones and soft tissues are normal. No fracture or joint effusion. Alignment is anatomic. Joint spaces are well maintained. No abnormal soft tissue calcification. XR/XR knee RT 3V IMPRESSION: Unremarkable bilateral knees.
--- NOTE | ~2022-06-27 | XR_ITS ---
EXAMINATION: XR CHEST 2 VIEWS CLINICAL INFORMATION: Cough. COMPARISON: Chest radiograph dated 10/02/2021. TECHNIQUE: Frontal and lateral views of the chest were obtained. FINDINGS: The heart, great vessels, pulmonary vasculature and mediastinum are normal. There is a full inspiration. The lungs show no focal infiltrate, effusion or pneumothorax. There is no acute osseous abnormality. XR/XR chest 2V IMPRESSION: No active cardiopulmonary disease.
--- NOTE | ~2022-06-27 | XR_ITS ---
EXAMINATION: XR KNEE, RIGHT XR KNEE, LEFT XR KNEE AP STANDING CLINICAL INFORMATION: Bilateral primary osteoarthritis. COMPARISON: None available. TECHNIQUE: Four views of the right knee. Four views of the left knee. AP bilateral standing view of the knees was obtained. FINDINGS: RIGHT KNEE: Bones and soft tissues are normal. No fracture or joint effusion. Alignment is anatomic. Joint spaces are well maintained. No abnormal soft tissue calcification. LEFT KNEE: Bones and soft tissues are normal. No fracture or joint effusion. Alignment is anatomic. Joint spaces are well maintained. No abnormal soft tissue calcification. XR/XR knee standing BI IMPRESSION: Unremarkable bilateral knees.
[2022-06-27 09:56] LABS: MANUAL DIFF FLAG NO
[2022-06-27 10:23] LABS: Basophils Absolute Auto 0.1 X10*3/uL (0.0-0.2); Basophils Percent Auto 1.2 % (0-2); Eosinophils Absolute Auto 0.4 X10*3/uL (0.0-0.4); Eosinophils Percent Auto 10.3 % (0-4); Hematocrit 36.8 % (37.0-47.0); Hemoglobin 12.3 g/dl (12.0-16.0); Imm Gran Abs Auto 0.01 X10*3/uL (0.00-0.03); Imm Gran Pct Auto 0.2 % (0.0-0.4); Lymphocytes Absolute Auto 1.2 X10*3/uL (1.2-4.9); Lymphocytes Percent Auto 27.6 % (20-40); Mean Corpuscular HGB Conc 33.4 g/dl (31.0-35.0); Mean Corpuscular Hemoglobin 27.8 pg (27.0-33.0); Mean Corpuscular Volume 83.1 fL (80.0-98.0); Mean Platelet Volume 9.8 fL (9.4-12.3); Monocytes Absolute Auto 0.4 X10*3/uL (0.1-1.2); Monocytes Percent Auto 9.6 % (2-11); Neutrophils Absolute Auto 2.1 x10*3/uL (2.0-8.3); Neutrophils Percent Auto 51.1 % (45-73); Platelet Count 231 X10*3/uL (160-400); Red Blood Count 4.43 X10*6/uL (4.20-5.50); Red Cell Distribution Width 13.5 % (11.0-16.0); White Blood Count 4.2 X10*3/uL (4.8-10.8)
[2022-06-27 10:58] LABS: Alanine Aminotransferase 15 U/L (0-31); Albumin Level 4.4 g/dL (3.5-5.0); Alkaline Phosphatase 57 U/L (39-117); Anion Gap 13 (12-20); Aspartate Amino Transferase 19 U/L (5-31); Bilirubin Total 0.8 mg/dL (0.0-1.0); Blood Urea Nitrogen 11 mg/dL (9-16); C Reactive Protein 0.64 mg/dL (< or = 0.50); Calcium 9.7 mg/dL (8.4-10.2); Carbon Dioxide 28 mmol/L (22-29); Chloride 104 mmol/L (96-108); Estimated Glomerular Filt Rate > 60; Glucose Random 89 mg/dL (60-115); Potassium 3.7 mmol/L (3.3-5.1); Rheumatoid Factor < 13.0 IU/mL (<15.0); Sodium 141 mmol/L (135-145); Total Protein 7.4 g/dL (6.5-8.0)
[2022-06-27 11:21] LABS: Erythrocyte Sedimentation Rate 29 MM/HR (0-20)
[2022-06-27 12:18] LABS: Creatinine Urine 67.32 mg/dL; Total Protein Urine Random < 7 mg/dL (<12)
[2022-06-28 04:39] LABS: HBS Num1 56.18 mIU/mL (0-7.99); HBsAGNum1 0.35 S/CO (0.00-0.99); Hepatitis A Antibody IgM 0.41 Index (0-0.79); Hepatitis B Core Antibody Nonreactive (Nonreactive); Hepatitis B Surface Antigen Negative (Negative); ~HepC Num1 0.06 S/CO (0.00-0.79); ~Hepatitis A Antibody IgM Nonreactive (Nonreactive); ~Hepatitis B Surface Antibody REACTIVE (Nonreactive); ~Hepatitis C Antibody Nonreactive (Nonreactive)
[2022-06-28 18:44] LABS: Complement C3 103 mg/dL (83-193)
[2022-06-29 13:48] LABS: Cyclic Citrullinated Peptide <16 UNITS
[2022-06-29 17:53] LABS: Anti DNA DS Antibody <1 IU/mL; Antibody to SS-A Antigen >8.0 POS AI (<1.0 NEG); Antibody to SS-B Antigen <1.0 NEG AI (<1.0 NEG); SM/Ribonucleoprotein Ab <1.0 NEG AI (<1.0 NEG); Smith Protein <1.0 NEG AI (<1.0 NEG)
[2022-06-29 22:43] LABS: TS Negative Control Passed; TS Panel A 0; TS Panel B 0; TS Positive Control Passed; TSpotTB Negative (Negative)
[2022-06-29 23:24] LABS: Prot Elec - Albumin 4.2 g/dL (3.8-4.8); Prot Elec - Alpha1 0.3 g/dL (0.2-0.3); Prot Elec - Beta 1 0.5 g/dL (0.4-0.6); Prot Elec - Beta 2 0.4 g/dL (0.2-0.5); Prot Elec - Gamma 0.9 g/dL (0.8-1.7); Prot Elec - Total Protein 7.3 g/dL (6.1-8.1)
[2022-07-04 10:18] LABS: IgA 350 mg/dL (70-320); IgG 952 mg/dL (600-1540); IgM 81 mg/dL (50-300)
[2022-07-04 11:59] LABS: Centromere Protein A Ab <11 SI (<11); Centromere Protein B Ab <11 SI (<11); Fibrillarin Ab <11 SI (<11); PM SCL 100 Ab <11 SI (<11); PM SCL 75 Ab <11 SI (<11); RNA Polymerase III RP11 Ab <11 SI (<11); RNA Polymerase III RP155 Ab <11 SI (<11); SCL-70 Extractable Nuclear Ab <11 SI (<11); Th-To Ab <11 SI (<11); U1 SNRNP RNP 70KD <11 SI (<11); U1 SNRNP RNP A <11 SI (<11); U1 SNRNP RNP C <11 SI (<11)
== END 2022-06-27 07:37 | disposition home or self-care (01) ==
LOC: HO.XRAY 07:36
PROVIDERS: PCP Nurse Practitioner Primary Care; Visit Provider Student in an Organized Health Care Education/Training Program
DX: M17.0 Bilateral primary osteoarthritis of knee (principal); M35.01 Sjogren syndrome with keratoconjunctivitis; R76.8 Other specified abnormal immunological findings in serum; M81.0 Age-related osteoporosis without current pathological fracture; M34.9 Systemic sclerosis, unspecified; M25.541 Pain in joints of right hand; D89.1 Cryoglobulinemia; R06.02 Shortness of breath; Z11.7 Encounter for testing for latent tuberculosis infection; Z11.59 Encounter for screening for other viral diseases; Z72.89 Other problems related to lifestyle; Z79.899 Other long term (current) drug therapy
CPT/HCPCS: 36415; 71046; 73562; 73564; 73565; 80053; 82595; 82784; 84156; 84165; 84182; 85025; 85652; 86140; 86160; 86200; 86225; 86235; 86334; 86431; 86481; 86704; 86706; 86709; 86803; 87340; 99212

== ENCOUNTER 2022-07-11 14:51 | Outpatient (REF) | payer MEDICARE, MEDICAID, SELFPAY ==
--- NOTE | ~2022-07-11 | MM_ITS ---
EXAMINATION: MM SCREENING DIGITAL BREAST TOMOSYNTHESIS, BILATERAL CLINICAL INFORMATION: Screening. Asymptomatic. The lifetime risk of breast cancer based on the Tyrer-Cuzick Model is 4%. COMPARISON: Mammography: 06/20/2021, 06/08/2021, 04/06/2020 (new baseline). TECHNIQUE: Digital breast tomosynthesis is performed in both the craniocaudal and mediolateral oblique views along with computer-aided detection (CAD). Synthesized 2D images are generated from the tomosynthesis. Additional left MLO and right cleavage views are provided. FINDINGS: There are scattered areas of fibroglandular density (ACR BI-RADS breast composition Category b). There are no significant masses, abnormal calcifications, or other abnormalities. No architectural abnormality. Note developing density. There are scattered vascular calcifications. The axilla and skin contours are unremarkable. MM/MM tomosynthesis screening BI IMPRESSION: No mammographic evidence of malignancy. ASSESSMENT: BI-RADS 2: Benign RECOMMENDATION: Routine annual mammography screening. This patient's information was entered into a reminder system with a target due date for their next mammogram.
== END 2022-07-11 14:52 | disposition home or self-care (01) ==
LOC: HO.MAMMO 14:51
PROVIDERS: PCP Nurse Practitioner Primary Care; Visit Provider Internal Medicine
DX: Z12.31 Encounter for screening mammogram for malignant neoplasm of breast (principal)
CPT/HCPCS: 77063; 77067

== ENCOUNTER → 2022-07-19 09:41 | Outpatient (REF) | payer MEDICARE, MEDICAID, SELFPAY ==
--- NOTE | 2022-07-19 09:44 | CA_ITS ---
Transthoracic Echocardiogram Patient (Last, First, Middle): Nicolasa Reich, Gender: Female Date of : 1955 Age: 66 Procedure Date: 07/19/2022 Procedure Type: Transthoracic Echocardiogram Location: OP Height: 124.46 cm Weight: 48.54 kg BSA: 1.24 m2 Heart Rate: bpm BP: 118 / 56 mmHg Information Technology Specialist: Referring MD: Richy Ellis MD Batch Analyst: Pedro Buckner MD Symptoms: M35.01 - Sjogren syndrome with keratoconjunctivitis Study Quality: Fair ECG Rhythm: Sinus Conclusions: - Essentially normal study for her age Findings Left Ventricle Normal left ventricular size, thickness, and systolic function. The visually estimated ejection fraction is between 55-60%. Spectral Doppler is indicative of an impaired relaxation filling pattern. E/E prime ratio is <8, consistent with normal filling pressures. Evidence suggests grade I (mild) diastolic dysfunction. Peak GLS is -17.3%, borderline low. Right Ventricle Normal right ventricular cavity size and systolic function. Atria Both atria are normal in size. There is no evidence of interatrial shunt. Aortic Valve Normal aortic valve structure and function. There is no aortic valve stenosis. There is no aortic valve regurgitation. Mitral Valve There is mild anterior and posterior mitral leaflet thickening. There is mild mitral valve regurgitation. There is no mitral valve stenosis. Pulmonic Valve The pulmonic valve is likely normal. There is trace pulmonic valve regurgitation. Tricuspid Valve Normal tricuspid valve structure. There is trace tricuspid valve regurgitation. The right ventricular systolic pressure is normal. The right ventricular systolic pressure is 14 mmHg. Normal right atrial pressure. There is no evidence of pulmonary hypertension. Great Vessels All visible segments of the aorta are normal in size. The pulmonary artery was not well visualized. Venous The inferior vena cava is normal in size and collapses greater than 50% with inspiration. Pericardium/Pleural There is no evidence of pericardial effusion. Prior Study Comparison No significant change compared to prior study dated: 04/20/2020. Measurements 2D Linear Measurements IVSd: 0.65 0.6-0.9/0.6-1.0 cm LVIDd: 4.09 3.9-5.3/4.2-5.9 cm LVIDd Index: 3.30 2.4-3.2/2.2-3.1 cm/m2 LVIDs: 2.57 2.0-3.6 cm LVPWd: 0.62 0.7-1.1 cm Ao Root: 2.20 2.1-3.5 cm LA Diam: 2.40 2.7-3.8/3.0-4.0 cm LAIDs Index: 1.94 1.5-2.3 cm/m2 LV Mass: 88.91 67-162/88-224 g LV Mass Index: 71.70 43-95/49-115 g/m2 LVOT Diam: 1.90 3.0+(-)1.3 cm Mitral Valve MV Pk E: 0.73 MV PK A: 1.00 MV Decel Time: 115.00 E/A: 0.70 E'Lateral: 6.96 E'Medial: 6.74 E/E' Med: 10.80 E/E' Lat: 10.50 PHT: 34.00 MVA PHT: 6.47 Decel Otoe: 6.34 Aortic Valve AoV Pk Thanh: 1.06 AoV Mn Thanh: 0.70 AoV VTI: 0.31 AoV Pk Grad: 4.00 Aov Mn Grad: 2.00 KATIE Cont.VTI: 1.75 LVOT LVOT Pk Thanh: 0.75 LVOT Mn Thanh: 0.53 LVOT VTI: 0.19 LVOT Pk Grad: 2.00 LVOT Mn Grad: 1.00 LVOT Diam: 1.90 LVOT Area: 2.84 Diastolic Function MV Pk E: 0.73 MV Pk A: 1.00 E/A: 0.70 E'Medial: 6.74 E/E' Med: 10.80 E' Laterial: 6.96 E/E' Lat: 10.50 Right Ventricle TAPSE (mm): 25.00 TVS' Thanh: 10.00 Tricuspid Valve TR Pk Thanh: 1.64 TR Pk Grad: 11.00 RA Press: 3.00 RVSP: 14.00 Great Vessels Aorta Ao Root-2D: 2.20 2.0-3.7 cm Ao Asc: 2.80 2.1-3.4 cm Pulmonary Valve PV Pk Thanh: 0.84 Peak PV Grad: 3.00 Updated in Other Vendor System with Status of Final Pedro Buckner MD electronically signed on 07/20/2022 11:49:59 AM with status of Final
== END ==
LOC: HO.CARD 09:41
PROVIDERS: PCP Internal Medicine; Visit Provider Student in an Organized Health Care Education/Training Program
DX: M35.01 Sjogren syndrome with keratoconjunctivitis (principal)
CPT/HCPCS: 93306

== ENCOUNTER 2022-09-22 09:11 | Outpatient (REF) | payer MEDICARE, MEDICAID, SELFPAY ==
--- NOTE | 2022-09-22 10:03 | PFT_ITS ---
Forced vital capacity 76%, FEV1 88%. FEV1/FVC ratio is 89. QGR12-47 133% and MVV 53%. Post bronchodilator therapy, there is some improvement in [id number]. Total lung capacity 65%. Residual volume 67%. Diffusion capacity 98%. CONCLUSION: Mild restrictive pulmonary disorder. No significant obstructive airway disorder. MD [id number] Boyer/MODL / [id number]
== END 2022-09-22 09:12 | disposition home or self-care (01) ==
LOC: HO.RESP 09:11
PROVIDERS: PCP Internal Medicine; Visit Provider Student in an Organized Health Care Education/Training Program
DX: R06.02 Shortness of breath (principal)
CPT/HCPCS: 94010; 94727; 94729

== ENCOUNTER → 2022-09-22 10:03 | Outpatient (BNV) | payer MEDICARE, MEDICAID, SELFPAY | PROVIDERS: PCP Internal Medicine; Visit Provider Internal Medicine | DX: J45.909 Unspecified asthma, uncomplicated (principal) | CPT/HCPCS: 94060; 94727; 94729 ==

== ENCOUNTER 2022-09-29 14:47 | Outpatient (AMB) | payer MEDICARE, MEDICAID, SELFPAY ==
--- NOTE | 2022-09-29 14:52 | MHC.OFFVIS ---
Intake Vital Signs 09/29/22 14:53 Height 4 ft 11 in Weight 107 lb 5.842 oz BMI 21.7 BP 112/64 Blood Pressure Location Rt brachial Position Sitting Pulse 79 Pulse Source Pulse Oximeter Temp 97.2 F Temp Source Skin Pulse Oximetry (%) 96 Oxygen Delivery Method Room Air Intake Visit Reasons: Sjogren's Intake Note: Here for Sjogren's follow up. Cost Engineer Required: Yes Cost Engineer Language: Paving Contractor Name: Kate Information Interpreted: clinical only Allergies clindamycin Adverse Reaction (Verified 09/29/22 14:57) Shortness of Breath, Angina Medication List - Last Reconciled 09/29/22 by Richy Ellis MD calcium carbonate 500 mg PO BID cetirizine 10 mg PO cholecalciferol (vitamin D3) (Vitamin D3) 50 mcg PO DAILY denosumab (Prolia) 60 mg subcut [id number] epinephrine IM DIRECTED ibuprofen (Advil) 200 mg PO Q6H PRN levothyroxine (Synthroid) 50 mcg PO DAILY meclizine 25 mg PO BID PRN prednisolone acetate 1% drps ophthalmic (eye) DAILY HPI HPI Comments History of Present Illness Details 66yoF presents for follow-up of Sjogrens. Patient states that she was going well overall. The joint pain in her fingers and shoulders have self-resolved. She states that recently she has been getting pain in her right upper and mid back, worse when sleeping on her right side. She is worried about Raynaud's symptoms when it gets cold in the winter months. Initial history: Pt reports joint pain located in her fingers, toes, knees, hips, mid back. Pain has been present for years and slowly worsening. Pain is present all day long. Pain is worse with activity. Has diffuse morning stiffness that lasts a few minutes. Feels that her hands swell occasionally. Pain is aching in nature, can get up to 5/10. Pt uses Sulindac for severe pain which helps a little. + Raynauds in fingers since 16yo, no history of digital ulcers + dry eyes + thinning hair, no alopecia Pt denies photosensitivity, oral or nasal ulcers, oral dryness, fevers, alopecia. Sister with SLE. No family history of RA. [facility] Medical History JEREMY positive Left breast lump Sjogren's syndrome with keratoconjunctivitis sicca Surgical History H/O: hysterectomy Hx of cholecystectomy Family History Daughter Asthma Sister SLE (systemic lupus erythematosus related syndrome) Social History Household Members: Family Are you a primary primary care pediatrician to a significant other at home: Yes Do you presently have visiting nurse or other home services: No Alcohol intake: never Patient Tobacco Use Status: Never used Tobacco Second Hand Smoke Exposure: Yes Current occupational status: disabled Review of Systems Musc Reports back pain and Reports arthralgias Physical Exam Vital Signs: Last Vital Signs Temp 97.2 F 09/29/22 14:53 Pulse 79 09/29/22 14:53 BP 112/64 09/29/22 14:53 Pulse Ox 96 09/29/22 14:53 Oxygen Delivery Method Room Air 09/29/22 14:53 BMI result Body Mass Index 21.7 Const General: cooperative, no acute distress and well developed Orientation/consciousness: patient oriented x3 HEENT Head: Yes normal to inspection Resp Effort & Inspection: normal respiratory effort and able to speak in complete sentences Auscultation: clear to auscultation bilaterally Cardio Rate: regular rate Rhythm: regular rhythm Heart sounds: S1 normal heart sound present and S2 normal heart sound present Neuro General: patient oriented x3 Extrem Other: No synovitis on exam. Bilateral Juvenal's Heberden's nodes, some are slightly tender to palpation Normal nailfold capillaroscopy today Could not elicit any tenderness to palpation of her spine and back muscles General: Yes no pedal edema Psych Attitude: cooperative Assessment & Plan Assessment & Plan (1) Sjogren's syndrome with keratoconjunctivitis sicca: Code(s): M35.01 - Sjogren syndrome with keratoconjunctivitis Plan: This is a 66-year-old female with Sjogren's (dry eyes, dry mouth, +++SSa, arthralgias, leukopenia) who presents for follow-up. Patient is doing well overall. No need to start patient on DMARDs today. She has been complaining of upper back pain with movement. This is likely musculoskeletal in nature. I prescribed few days of Flexeril. Advised patient to stop the medication if it causes dizziness. 2D echo 2022 unremarkable except for grade 1 diastolic dysfunction PFTs unremarkable except for mildly reduced TLC at 65%, DLCO 98% can repeat in 1-2 years. Chest x-ray unremarkable Follow-up in 4 (2) JEREMY positive: Code(s): R76.8 - Other specified abnormal immunological findings in serum Plan: History of Raynaud's since age 16. There is no history of digital tip ulcers. I discussed conservative measures for Raynaud's including avoiding tobacco exposure, patient's son-in-law smokes in the house. Keep core and extremity temperature warm. Use gloves and glove warmers, consider electric gloves. Can consider medication for Raynaud's in the colder months. (3) Osteoporosis: Code(s): M81.0 - Age-related osteoporosis without current pathological fracture Qualifiers: Osteoporosis type: age-related Presence of current pathological fracture: without current pathological fracture Qualified Code(s): M81.0 - Age-related osteoporosis without current pathological fracture Plan: On Prolia. Managed by endocrinology Plan I spent 32 minutes reviewing patient's chart, evaluating patient, placing orders, counseling patient and documenting in the chart Medications: New cyclobenzaprine 5 mg PO BEDTIME PRN 10 tabs 1RF muscle spasm Coding Level of Care Code Est Pt Level 4 (60214) Diagnoses Sjogren's syndrome with keratoconjunctivitis sicca M35.01 JEREMY positive R76.8 Osteoporosis M81.0 Osteoporosis type: age-related Presence of current pathological fracture: without current pathological fracture
[2022-09-29 14:53] VITALS: BP 112/64; PULSE 79; TEMP 36.2; O2SAT 96; BMI 21.7
== END 2022-09-29 15:20 | disposition home or self-care (01) ==
PROVIDERS: PCP Internal Medicine; Visit Provider Student in an Organized Health Care Education/Training Program
DX: M35.01 Sjogren syndrome with keratoconjunctivitis (principal); R76.8 Other specified abnormal immunological findings in serum; M81.0 Age-related osteoporosis without current pathological fracture
CPT/HCPCS: 99214

== ENCOUNTER → 2022-09-29 14:47 | Outpatient (BNVA) | payer MEDICARE, MEDICAID, SELFPAY | PROVIDERS: PCP Internal Medicine; Visit Provider Student in an Organized Health Care Education/Training Program | DX: M35.01 Sjogren syndrome with keratoconjunctivitis (principal); R76.8 Other specified abnormal immunological findings in serum; M81.0 Age-related osteoporosis without current pathological fracture | CPT/HCPCS: 99212 ==

== ENCOUNTER 2023-02-06 15:38 | Outpatient (AMB) | payer MEDICARE, MEDICAID, SELFPAY ==
--- NOTE | 2023-02-06 15:40 | A.OFFVIS_ITS ---
Intake Vital Signs 02/06/23 15:48 Height 4 ft 11 in Weight 105 lb 6.095 oz BMI 21.3 BP 114/68 Blood Pressure Location Lt brachial Position Sitting Pulse 101 H Pulse Source Pulse Oximeter Temp 97 F Temp Source Skin Pulse Oximetry (%) 95 Oxygen Delivery Method Room Air Intake Visit Reasons: Sjogren's Intake Note: Pt last seen 09/29/22 presents today for follow up and test results. Car Sales Representative Required: Yes Car Sales Representative Language: Clinic Office Manager Name: Cathie [id number] Accompanied by: Self / Same As Patient Allergies clindamycin Adverse Reaction (Verified 02/06/23 15:47) Shortness of Breath, Angina Medication List - Last Reconciled 02/06/23 by Richy Ellis MD alendronate 70 mg PO QWEEK calcium carbonate 500 mg PO BID cetirizine 10 mg PO cholecalciferol (vitamin D3) (Vitamin D3) 50 mcg PO DAILY epinephrine IM DIRECTED ibuprofen (Advil) 200 mg PO Q6H PRN levothyroxine (Synthroid) 50 mcg PO DAILY meclizine 25 mg PO BID PRN prednisolone acetate 1% drps ophthalmic (eye) DAILY HPI HPI Comments History of Present Illness Details 67yoF presents for follow-up of Sjogrens. She is not on any DMARDs. Patient states that she received the flu vaccine in the middle of January and had a fever and headaches after the vaccine. She also states that she has been having intermittent shortness of breath. Has history of asthma and Has been using her inhaler more frequently. She just ran out of her inhaler yesterday. She states that she gets muscle pain that is improved with topical creams. She gets back pain when she leans forward. Her Raynaud's is active during the colder winter months but she uses gloves and her daughter brought her club warmers which helped. Has not had any digital ulcers. Did not lose any weight Initial history: Pt reports joint pain located in her fingers, toes, knees, hips, mid back. Pain has been present for years and slowly worsening. Pain is present all day long. Pain is worse with activity. Has diffuse morning stiffness that lasts a few minutes. Feels that her hands swell occasionally. Pain is aching in nature, can get up to 5/10. Pt uses Sulindac for severe pain which helps a little. + Raynauds in fingers since 16yo, no history of digital ulcers + dry eyes + thinning hair, no alopecia Pt denies photosensitivity, oral or nasal ulcers, oral dryness, fevers, alopecia. Sister with SLE. No family history of RA. [facility] Medical History Left breast lump Sjogren's syndrome with keratoconjunctivitis sicca JEREMY positive Surgical History H/O: hysterectomy Hx of cholecystectomy Family History Daughter Asthma Sister SLE (systemic lupus erythematosus related syndrome) Social History Household Members: Family Are you a primary youth care professional to a significant other at home: Yes Do you presently have visiting nurse or other home services: No Alcohol intake: never Patient Tobacco Use Status: Never used Tobacco Second Hand Smoke Exposure: Yes Current occupational status: disabled Review of Systems Card Reports dyspnea on exertion Resp Reports dyspnea on exertion and Reports wheezing Musc Reports back pain and Reports arthralgias Skin/Breast Details: Raynaud's Aller/Immun Reports wheezing Physical Exam Const General: cooperative, no acute distress and well developed Orientation/consciousness: patient oriented x3 HEENT Head: Yes normal to inspection Resp Other: Minimal scattered wheezes Effort & Inspection: normal respiratory effort and able to speak in complete sentences Cardio Rate: regular rate Rhythm: regular rhythm Heart sounds: S1 normal heart sound present and S2 normal heart sound present Neuro General: patient oriented x3 Extrem Other: No synovitis on exam. Bilateral Juvenal's Heberden's nodes, some are slightly tender to palpation Normal nailfold capillaroscopy today Normal range of motion of shoulders without pain Cool fingertips, no digital ulcers General: Yes no pedal edema Psych Attitude: cooperative Assessment & Plan Assessment & Plan (1) Sjogren's syndrome with keratoconjunctivitis sicca: Code(s): M35.01 - Sjogren syndrome with keratoconjunctivitis Plan: This is a 67-year-old female with Sjogren's (dry eyes, dry mouth, +++SSa, arthralgias, leukopenia) who presents for follow-up. Patient is doing well overall. No need to start patient on DMARDs today. There is no active synovitis on exam 2D echo 2022 unremarkable except for grade 1 diastolic dysfunction PFTs unremarkable except for mildly reduced TLC at 65%, DLCO 98% can repeat in 1-2 years. Chest x-ray unremarkable Labs before next visit in 4 months (2) JEREMY positive: Code(s): R76.8 - Other specified abnormal immunological findings in serum Plan: History of Raynaud's since age 16. There is no history of digital tip ulcers. I discussed conservative measures for Raynaud's including avoiding tobacco exposure, patient's son-in-law smokes in the house. Keep core and extremity temperature warm. Use gloves and glove warmers, consider electric gloves. Raynaud symptoms are relatively well controlled. No need to start medication (3) Osteoporosis: Code(s): M81.0 - Age-related osteoporosis without current pathological fracture Qualifiers: Osteoporosis type: age-related Presence of current pathological fracture: without current pathological fracture Qualified Code(s): M81.0 - Age- related osteoporosis without current pathological fracture Plan: Was on Prolia in the past. Currently back on alendronate (4) Asthma: Code(s): J45.909 - Unspecified asthma, uncomplicated Qualifiers: Asthma severity: mild Asthma persistence: intermittent Asthma complication type: unspecified Qualified Code(s): J45.20 - Mild intermittent asthma, uncomplicated Plan: Few scattered wheezes on exam. Patient has been using her inhaler. She ran out yesterday. Albuterol inhaler refilled. Follow-up with PCP Plan I spent 32 minutes reviewing patient's chart, evaluating patient, placing orders, counseling patient and documenting in the chart Orders: Orders Complete Blood Count Auto Diff 4 Months M32.9 - Systemic lupus erythematosus, unspecified Comprehensive Met. Panel 4 Months M32.9 - Systemic lupus erythematosus, unspecified Erythrocyte Sedimentation Rate 4 Months M32.9 - Systemic lupus erythematosus, unspecified Protein Electrophoresis, Serum 4 Months M32.9 - Systemic lupus erythematosus, unspecified UA w Microscopic 4 Months M32.9 - Systemic lupus erythematosus, unspecified Complement C3 4 Months M32.9 - Systemic lupus erythematosus, unspecified Complement C4 4 Months M32.9 - Systemic lupus erythematosus, unspecified DNA Double Stranded-Crithidia 4 Months M32.9 - Systemic lupus erythematosus, unspecified C Reactive Protein 4 Months M32.9 - Systemic lupus erythematosus, unspecified Immunofixation Pnl, Serum 4 Months M32.9 - Systemic lupus erythematosus, unspecified Protein Creatinine Ratio, Ur 4 Months M32.9 - Systemic lupus erythematosus, unspecified Anti DNA DS Antibody 4 Months M32.9 - Systemic lupus erythematosus, unspecified Medications: New albuterol sulfate 90 mcg/actuation (Ventolin HFA) 1 inh inhalation Q4-6H PRN 8.5 grams 0RF shortness of breath or wheezing Coding Level of Care Code Est Pt Level 4 (36422) Diagnoses Sjogren's syndrome with keratoconjunctivitis sicca M35.01 JEREMY positive R76.8 Age-related osteoporosis without current pathological fracture M81.0 Osteoporosis type: age-related Presence of current pathological fracture: without current pathological fracture Mild intermittent asthma, unspecified whether complicated J45.20 Asthma severity: mild Asthma persistence: intermittent Asthma complication type: unspecified
[2023-02-06 15:48] VITALS: BP 114/68; PULSE 101; TEMP 36.1; O2SAT 95; BMI 21.3
== END 2023-02-06 16:01 | disposition home or self-care (01) ==
PROVIDERS: PCP Internal Medicine; Visit Provider Student in an Organized Health Care Education/Training Program
DX: M35.01 Sjogren syndrome with keratoconjunctivitis (principal); R76.8 Other specified abnormal immunological findings in serum; M81.0 Age-related osteoporosis without current pathological fracture; J45.20 Mild intermittent asthma, uncomplicated
CPT/HCPCS: 99214

== ENCOUNTER → 2023-02-06 15:38 | Outpatient (BNVA) | payer MEDICARE, MEDICAID, SELFPAY | PROVIDERS: PCP Internal Medicine; Visit Provider Student in an Organized Health Care Education/Training Program | DX: M35.01 Sjogren syndrome with keratoconjunctivitis (principal); R76.8 Other specified abnormal immunological findings in serum; M81.0 Age-related osteoporosis without current pathological fracture; J45.20 Mild intermittent asthma, uncomplicated | CPT/HCPCS: 99212 ==

== ENCOUNTER 2023-06-04 09:06 | Outpatient (REF) | payer MEDICARE, MEDICAID, SELFPAY ==
[2023-06-04 09:29] LABS: MANUAL DIFF FLAG NO
[2023-06-04 10:47] LABS: Basophils Absolute Auto 0.1 X10*3/uL (0.0-0.2); Basophils Percent Auto 1.5 % (0-2); Eosinophils Absolute Auto 0.2 X10*3/uL (0.0-0.4); Eosinophils Percent Auto 4.5 % (0-4); Hemoglobin 12.3 g/dl (12.0-16.0); Imm Gran Abs Auto 0.01 X10*3/uL (0.00-0.03); Imm Gran Pct Auto 0.3 % (0.0-0.4); Lymphocytes Absolute Auto 1.3 X10*3/uL (1.2-4.9); Lymphocytes Percent Auto 39.2 % (20-40); Mean Corpuscular HGB Conc 33.2 g/dl (31.0-35.0); Mean Corpuscular Hemoglobin 27.9 pg (27.0-33.0); Mean Corpuscular Volume 83.9 fL (80.0-98.0); Mean Platelet Volume 10.1 fL (9.4-12.3); Monocytes Absolute Auto 0.3 X10*3/uL (0.1-1.2); Neutrophils Absolute Auto 1.5 x10*3/uL (2.0-8.3); Neutrophils Percent Auto 45.5 % (45-73); Platelet Count 280 X10*3/uL (160-400); Red Blood Count 4.41 X10*6/uL (4.20-5.50); Red Cell Distribution Width 13.5 % (11.0-16.0); White Blood Count 3.3 X10*3/uL (4.8-10.8)
[2023-06-04 10:49] LABS: Appearance Urine Clear; Color Urine Yellow; Glucose Urine UA Negative (Negative); Leukocyte Esterase Urine Negative (Negative); Nitrite Urine Negative (Negative); PH 6.5 (5.0-9.0); Specific Gravity - Urine 1.015 (1.005-1.025); Urine Blood Negative (Negative); Urine Ketones Negative (Negative); Urine Protein Negative (Neg-Trace)
[2023-06-04 10:58] LABS: Bacteria Urine None Seen (None Seen); Hyaline Casts Urine 0-2 /LPF (0-2); RBC Urine 0-2 /HPF (0-2); Squamous Epithelial Cell Urine 0-2 /HPF (0-2); WBC Urine 0-5 /HPF (0-5)
[2023-06-04 11:16] LABS: Erythrocyte Sedimentation Rate 31 MM/HR (0-20)
[2023-06-04 11:55] LABS: Creatinine Urine 71.68 mg/dL; Total Protein Urine Random < 7 mg/dL (<12)
[2023-06-04 12:01] LABS: Alanine Aminotransferase 9 U/L (0-31); Albumin Level 4.3 g/dL (3.5-5.0); Alkaline Phosphatase 52 U/L (39-117); Anion Gap 12 (12-20); Aspartate Amino Transferase 16 U/L (5-31); Bilirubin Total 0.9 mg/dL (0.0-1.0); Blood Urea Nitrogen 16 mg/dL (9-16); C Reactive Protein 0.29 mg/dL (< or = 0.50); Calcium 9.7 mg/dL (8.4-10.2); Carbon Dioxide 30 mmol/L (22-29); Chloride 102 mmol/L (96-108); Estimated Glomerular Filt Rate > 60; Glucose Random 85 mg/dL (60-115); Sodium 140 mmol/L (135-145); Total Protein 7.4 g/dL (6.5-8.0)
[2023-06-05 11:59] LABS: Complement C3 95 mg/dL (83-193)
[2023-06-05 12:44] LABS: Prot Elec - Albumin 4.2 g/dL (3.8-4.8); Prot Elec - Alpha1 0.3 g/dL (0.2-0.3); Prot Elec - Alpha2 0.9 g/dL (0.5-0.9); Prot Elec - Beta 1 0.4 g/dL (0.4-0.6); Prot Elec - Beta 2 0.5 g/dL (0.2-0.5); Prot Elec - Gamma 0.8 g/dL (0.8-1.7); Prot Elec - Total Protein 7.1 g/dL (6.1-8.1)
[2023-06-05 14:23] LABS: Anti DNA DS Antibody <1 IU/mL
[2023-06-08 15:08] LABS: DNAds, Crithidia Antibody Negative (Negative)
[2023-06-08 16:49] LABS: IgA 397 mg/dL (70-320); IgG 914 mg/dL (600-1540); IgM 86 mg/dL (50-300)
== END 2023-06-04 09:07 | disposition home or self-care (01) ==
LOC: HO.LAB 09:06
PROVIDERS: PCP Nurse Practitioner Primary Care; Visit Provider Student in an Organized Health Care Education/Training Program
DX: M32.9 Systemic lupus erythematosus, unspecified (principal); M35.01 Sjogren syndrome with keratoconjunctivitis
CPT/HCPCS: 36415; 80053; 81001; 82570; 82784; 84156; 84165; 85025; 85652; 86140; 86160; 86225; 86255; 86334

== ENCOUNTER 2023-06-07 15:27 | Outpatient (AMB) | payer MEDICARE, MEDICAID, SELFPAY ==
[2023-06-07 16:07] VITALS: BP 122/64; PULSE 102; O2SAT 95; BMI 21.1
--- NOTE | 2023-06-07 16:07 | A.OFFVIS_ITS ---
Vital Signs 06/07/23 16:07 Height 4 ft 11 in Weight 104 lb 4.458 oz BMI 21.1 BP 122/64 Blood Pressure Location Rt brachial Position Sitting Pulse 102 H Pulse Source Pulse Oximeter Pulse Oximetry (%) 95 Oxygen Delivery Method Room Air Intake Visit Reasons: Sjogren's/cm Intake Note: Patient last seen 02/06/23 presents today for follow up and test results. Dizziness, pain in fingertips Supervisor Heading Required: No Supervisor Heading Name: Edward [id number] Information Interpreted: clinical only Accompanied by: Self / Same As Patient Allergies clindamycin Adverse Reaction (Verified 06/07/23 16:10) Shortness of Breath, Angina Medication List - Last Reconciled 06/07/23 by Richy Ellis MD albuterol sulfate 90 mcg/actuation (Ventolin HFA) 1 inh inhalation Q4-6H PRN alendronate 70 mg PO QWEEK calcium carbonate 500 mg PO BID cetirizine 10 mg PO cholecalciferol (vitamin D3) (Vitamin D3) 50 mcg PO DAILY epinephrine IM DIRECTED ibuprofen (Advil) 200 mg PO Q6H PRN levothyroxine (Synthroid) 50 mcg PO DAILY meclizine 25 mg PO BID PRN prednisolone acetate 1% drps ophthalmic (eye) DAILY HPI Comments Details: 67yoF presents for follow-up of Sjogrens. She is not on any DMARDs. She states that she feels about the same overall. Gets intermittent tingling and numbness of her right hand fingertips. Gets intermittent change in color of her feet. She denies any shortness of breath. Continues to have diffuse pain especially of her back. Initial history: Pt reports joint pain located in her fingers, toes, knees, hips, mid back. Pain has been present for years and slowly worsening. Pain is present all day long. Pain is worse with activity. Has diffuse morning stiffness that lasts a few minutes. Feels that her hands swell occasionally. Pain is aching in nature, can get up to 5/10. Pt uses Sulindac for severe pain which helps a little. + Raynauds in fingers since 16yo, no history of digital ulcers + dry eyes + thinning hair, no alopecia Pt denies photosensitivity, oral or nasal ulcers, oral dryness, fevers, alopecia. Sister with SLE. No family history of RA. [facility] Medical History Left breast lump Sjogren's syndrome with keratoconjunctivitis sicca JEREMY positive Surgical History H/O: hysterectomy Hx of cholecystectomy Family History Daughter Asthma Sister SLE (systemic lupus erythematosus related syndrome) Social History Household Members: Family Are you a primary medicare nurse to a significant other at home: Yes Do you presently have visiting nurse or other home services: No Alcohol intake: never Patient Tobacco Use Status: Never used Tobacco Second Hand Smoke Exposure: Yes Current occupational status: disabled Review of Systems Musc Reports back pain, Reports arthralgias, Reports numbness and Reports tingling Skin/Breast Details: Raynaud's Neuro Reports numbness and Reports tingling Physical Exam Vital Signs: Last Vital Signs Pulse 102 H 06/07/23 16:07 BP 122/64 06/07/23 16:07 Pulse Ox 95 06/07/23 16:07 Oxygen Delivery Method Room Air 06/07/23 16:07 BMI result Body Mass Index 21.1 Const General: cooperative, no acute distress and well developed Orientation/consciousness: patient oriented x3 HEENT Head: Yes normal to inspection Resp Other: Minimal scattered wheezes Effort & Inspection: normal respiratory effort and able to speak in complete sentences Cardio Rate: regular rate Rhythm: regular rhythm Heart sounds: S1 normal heart sound present and S2 normal heart sound present Neuro General: patient oriented x3 Extrem Other: No synovitis on exam. Bilateral Juvenal's Heberden's nodes, some are slightly tender to palpation Normal nailfold capillaroscopy today Normal range of motion of shoulders without pain Cool fingertips, no digital ulcers Positive Tinel sign on the right General: Yes no pedal edema Psych Attitude: cooperative Assessment & Plan Assessment & Plan (1) Sjogren's syndrome with keratoconjunctivitis sicca: Code(s): M35.01 - Sjogren syndrome with keratoconjunctivitis Category: Medical Plan: This is a 67-year-old female with Sjogren's (dry eyes, dry mouth, +++SSa, arthralgias, leukopenia, Raynaud's) who presents for follow-up. Patient is doing well overall. No need to start patient on DMARDs today. There is no active synovitis on exam 2D echo 2022 unremarkable except for grade 1 diastolic dysfunction PFTs unremarkable except for mildly reduced TLC at 65%, DLCO 98% plan to repeat in 2024. Chest x-ray unremarkable Labs before next visit in 6 months (2) JEREMY positive: Code(s): R76.8 - Other specified abnormal immunological findings in serum Category: Medical Plan: History of Raynaud's since age 16. There is no history of digital tip ulcers. I discussed conservative measures for Raynaud's including avoiding tobacco exposure, patient's son-in-law smokes in the house. Keep core and extremity temperature warm. Use gloves and glove warmers, consider electric gloves. Raynaud symptoms are relatively well controlled. No need to start medication (3) Asthma: Code(s): J45.909 - Unspecified asthma, uncomplicated Category: Medical Qualifiers: Asthma severity: mild Asthma persistence: intermittent Asthma complication type: unspecified Qualified Code(s): J45.20 - Mild intermittent asthma, uncomplicated Plan: Few scattered wheezes on exam. On albuterol inhaler Plan I spent 32 minutes reviewing patient's chart, evaluating patient, placing orders, counseling patient and documenting in the chart Orders: Orders Complement C4 6 Months 2. - Systemic lupus erythematosus, unspecified C Reactive Protein 6 Months . - Systemic lupus erythematosus, unspecified Erythrocyte Sedimentation Rate 6 Months . - Systemic lupus erythematosus, unspecified UA w Microscopic 6 Months . - Systemic lupus erythematosus, unspecified Comprehensive Met. Panel 6 Months 2. - Systemic lupus erythematosus, unspecified Protein Electrophoresis, Serum 6 Months 2. - Systemic lupus erythematosus, unspecified NE electromyogram (EMG) Today R20.2 - Paresthesia of skin Anti DNA DS Antibody 6 Months 2.9 - Systemic lupus erythematosus, unspecified Complement C3 6 Months 2. - Systemic lupus erythematosus, unspecified Protein Creatinine Ratio, Ur 6 Months 2. - Systemic lupus erythematosus, unspecified Complete Blood Count Auto Diff 6 Months . - Systemic lupus erythematosus, unspecified Immunofixation Pnl, Serum 6 Months M32.9 - Systemic lupus erythematosus, unspecified Coding Level of Care Code Est Pt Level 4 (81648) Diagnoses Sjogren's syndrome with keratoconjunctivitis sicca M35.01 JEREMY positive R76.8 Mild intermittent asthma, unspecified whether complicated J45.20 Asthma severity: mild Asthma persistence: intermittent Asthma complication type: unspecified
== END 2023-06-07 16:27 | disposition home or self-care (01) ==
PROVIDERS: PCP Nurse Practitioner Primary Care; Visit Provider Student in an Organized Health Care Education/Training Program
DX: M35.01 Sjogren syndrome with keratoconjunctivitis (principal); R76.8 Other specified abnormal immunological findings in serum; J45.20 Mild intermittent asthma, uncomplicated
CPT/HCPCS: 99214

== ENCOUNTER → 2023-06-07 15:27 | Outpatient (BNVA) | payer MEDICARE, MEDICAID, SELFPAY | PROVIDERS: PCP Nurse Practitioner Primary Care; Visit Provider Student in an Organized Health Care Education/Training Program | DX: M35.01 Sjogren syndrome with keratoconjunctivitis (principal); R76.8 Other specified abnormal immunological findings in serum; J45.20 Mild intermittent asthma, uncomplicated | CPT/HCPCS: 99212 ==

== ENCOUNTER 2023-06-20 14:43 | Outpatient (REF) | payer MEDICARE, MEDICAID, SELFPAY ==
--- NOTE | 2023-06-20 14:46 | EMG_ITS ---
Chief complaint: Bilateral hand numbness, neck pain Positive JEREMY, history of Sjogren syndrome. Reason for referral: Evaluate for Carpal Tunnel Syndrome Referred by: Dr. Ellis Procedure done: Bilateral upper extremities NCS/EMG Precautions and/or limitations: None Patient is [place]an speaking, seen with commissions coordinator. The limb temperature was monitored continuously and remained between 32-36 degrees C during the performance of the NCS. Nerve Conduction Studies Anti Sensory Summary Table ?Stim Site NR Onset (ms) Norm Onset (ms) Peak (ms) Norm Peak (ms) O-P Amp (?V) Norm O-P Amp Site1 Site2 Delta-0 (ms) Dist (cm) Thanh (m/s) Norm Thanh (m/s) Left Median Anti Sensory (2nd Digit) Wrist ? 2.4 3.5 <3.6 41.0 >10 Wrist 2nd Digit 2.4 14.0 58 Right Median Anti Sensory (2nd Digit) Wrist ? 2.4 3.4 <3.6 38.4 >10 Wrist 2nd Digit 2.4 14.0 58 Right Radial Anti Sensory (Thumb) Forearm ? 1.6 2.0 <3.1 16.5 Forearm Thumb 1.6 0.0 Left Ulnar Anti Sensory (5th Digit) Wrist ? 2.4 3.2 <3.7 37.4 >15.0 Wrist 5th Digit 2.4 14.0 58 Right Ulnar Anti Sensory (5th Digit) Wrist ? 2.2 3.3 <3.7 38.7 >15.0 Wrist 5th Digit 2.2 14.0 64 Motor Summary Table ?Stim Site NR Onset (ms) Norm Onset (ms) O-P Amp (mV) Norm O-P Amp iAmp (mV) Amp (1st) (%) Site1 Site2 Delta-0 (ms) Dist (cm) Thanh (m/s) Norm Thanh (m/s) Left Median Motor (Abd Poll Brev) Wrist ? 3.0 <3.9 10.8 >4.5 13.0 100.0 Elbow Wrist 3.3 17.0 52 >45 Elbow ? 6.3 12.7 15.7 117.6 Right Median Motor (Abd Poll Brev) Wrist ? 3.0 <3.9 13.0 >4.5 15.1 100.0 Elbow Wrist 3.2 17.5 55 >45 Elbow ? 6.2 12.9 15.1 99.2 Left Ulnar Motor (Abd Dig Minimi) Wrist ? 2.7 <3.0 10.8 >5 12.0 100.0 B Elbow Wrist 2.2 15.0 68 >45 B Elbow ? 4.9 9.3 10.8 86.1 A Elbow B Elbow 1.5 10.0 67 >45 A Elbow ? 6.4 9.3 10.9 86.1 Right Ulnar Motor (Abd Dig Minimi) Wrist ? 2.7 <3.0 9.8 >5 11.1 100.0 B Elbow Wrist 2.5 15.5 62 >45 B Elbow ? 5.2 9.6 10.8 98.0 Site 5 ? 6.3 9.1 10.3 92.9 EMG ?Side Muscle Nerve Root Ins Act Fibs Psw Amp Dur Poly Recrt Int Pat Comment Right 1stDorInt Ulnar C8-T1 Nml Nml Nml Nml Nml 0 Nml Complete Right FlexCarRad Median C6-7 Nml Nml Nml Nml Nml 0 Nml Complete Right Biceps Musculocut C5-6 Nml Nml Nml Nml Nml 0 Nml Complete Right Triceps Radial C6-7-8 Nml Nml Nml Nml Nml 0 Nml Complete Right Deltoid Axillary C5-6 Nml Nml Nml Nml Nml 0 Nml Complete Left 1stDorInt Ulnar C8-T1 Incr 1+ 1+ Nml Nml 0 Nml Complete Left FlexCarRad Median C6-7 Incr 1+ 1+ Nml Nml 0 Nml Complete Left Biceps Musculocut C5-6 Incr 1+ 1+ Nml Nml 0 Nml Complete Left Triceps Radial C6-7-8 Nml Nml Nml Nml Nml 0 Nml Complete Left Deltoid Axillary C5-6 Nml Nml Nml Nml Nml 0 Nml Complete Paraspinal EMG ?Side Muscle Nerve Root Ins Act Fibs Psw Comment Right Cervical Upper Rami Nml Nml Nml Right Cervical Mid Rami Nml Nml Nml Right Cervical Lower Rami Nml Nml Nml Left Cervical Upper Rami Nml Nml Nml Left Cervical Mid Rami Nml Nml Nml Left Cervical Lower Rami Incr 1+ 1+ FINDINGS: All motor and sensory nerves tested showed normal latencies, amplitudes and conduction velocities. Concentric needle EMG was performed in selected muscles of the left upper extremity and cervical paraspinals. Study revealed signs of electric abnormalities as shown in the table above.. Left FCR, biceps, 1st dorsal interosseous showed increased insertional activity, PSWs and fibrillations. Left lower cervical paraspinals showed increased insertional activity, PSWs, fibrillations. IMPRESSION: 1. This is an abnormal] study. 2. There is electrodiagnostic evidence for left acute lower cervical radiculopathy, involving left C6/C7/C8 nerve roots.. 3. There is no electrodiagnostic evidence for median neuropathy, ulnar neuropathy, or brachial plexopathy. Thank you for your kind referral. Pia Chand MD, LEATHA Board Certified, [place] [employer] and [employer] (ABPMR) Board Certified, [place] Board of Electrodiagnostic Medicine (ABEM) CODIN [id number] x 2 MTDD
== END 2023-06-20 14:44 | disposition home or self-care (01) ==
LOC: HO.NEURO 14:43
PROVIDERS: PCP Nurse Practitioner Primary Care; Visit Provider Student in an Organized Health Care Education/Training Program
DX: R20.2 Paresthesia of skin (principal)
CPT/HCPCS: 95886; 95911

== ENCOUNTER → 2023-06-20 14:46 | Outpatient (BNV) | payer MEDICARE, MEDICAID, SELFPAY | PROVIDERS: PCP Nurse Practitioner Primary Care; Visit Provider Physical Medicine & Rehabilitation | DX: R20.2 Paresthesia of skin (principal) | CPT/HCPCS: 95886; 95911 ==

== ENCOUNTER 2023-07-18 13:38 | Outpatient (REF) | payer MEDICARE, MEDICAID, SELFPAY | END 2023-07-18 13:39 | disposition home or self-care (01) | LOC: HO.MAMMO 13:38 | PROVIDERS: PCP Nurse Practitioner Primary Care; Visit Provider Nurse Practitioner Primary Care | DX: Z12.31 Encounter for screening mammogram for malignant neoplasm of breast (principal) | CPT/HCPCS: 77063; 77067 ==

== ENCOUNTER → 2023-07-18 15:00 | Outpatient (BNV) | payer MEDICARE, MEDICAID, SELFPAY | PROVIDERS: PCP Nurse Practitioner Primary Care; Visit Provider Radiology Diagnostic Radiology | DX: Z12.31 Encounter for screening mammogram for malignant neoplasm of breast (principal) | CPT/HCPCS: 77063; 77067 ==

== ENCOUNTER 2023-07-19 14:14 | Outpatient (AMB) | payer MEDICARE, MEDICAID, SELFPAY ==
--- NOTE | 2023-07-19 14:19 | A.OFFVIS_ITS ---
Vital Signs 07/19/23 14:25 Height 4 ft 11 in Weight 104 lb 8 oz BMI 21.1 BP 145/74 H Blood Pressure Location Rt brachial Position Sitting Pulse 93 Pulse Source Pulse Oximeter Pulse Oximetry (%) 97 Oxygen Delivery Method Room Air Intake Visit Reasons: Radiculopathy Intake Note: Pain today 05/15 Garde Manager Required: Yes Garde Manager Language: Health And Safety Tech Name: Amanda #[id number] Accompanied by: Self / Same As Patient Allergies clindamycin Adverse Reaction (Verified 07/19/23 14:23) Shortness of Breath, Angina HPI HPI Radiculopathy: Details: Patient is a pleasant 67 years old Malaysian speaking female with prior history of arthritis, bilateral hand numbness, neck pain positive JEREMY, h/o Sjogren syndrome, presents today for initial evaluation of neck pain with radiation into her both shoulders, right shoulder worse than left. She is right hand dominant. 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 Reports radiation of neck pain into left upper extremity and fingers with burning, tingling and mild weakness. Patient reports numbness in her hands when handing hands over her sides or while holding her phone, worse on the right. She reports multiple joint pain and Raynauds in fingers since 16 yo. She also reports increased right shoulder pain and has difficulty with overhead reaches or reaching her back pockets. Overextending her neck causes her dizziness and swaying while walking. Patient has been referred to us by , Rheumatology for left C6 radiculopathy with pending cervical spine MRI on 07/26/23. Pain affects her daily activities and functioning and is worse during the day. Denies any recent or past trauma, injury or falls. Recent Neurodiagnostic studies showed left acute lower cervical radiculopathy, involving left C6/C7/C8 nerve roots and no electrodiagnostic evidence for median neuropathy, ulnar neuropathy, or brachial plexopathy. Location: Lower neck radiates to bilateral shoulders to lower back and hands Duration: Chronic pain for many years, worse for the last 6 months Characteristics of symptom or complaint: Aching, hot burning, numbness, tingling, squeezing Aggravating or associated factors: Any sudden movement, phone use, lifting, pulling Relieving factors: Ibuprofen, activity modifications, rest Treatment: EMG study [facility] Medical History Left breast lump Sjogren's syndrome with keratoconjunctivitis sicca JEREMY positive Surgical History H/O: hysterectomy Hx of cholecystectomy Family History Daughter Asthma Sister SLE (systemic lupus erythematosus related syndrome) Social History Household Members: Family Are you a primary care coordination manager to a significant other at home: Yes Do you presently have visiting nurse or other home services: No Alcohol intake: never Patient Tobacco Use Status: Never used Tobacco Second Hand Smoke Exposure: Yes Current occupational status: disabled Review of Systems Const All systems reviewed & are unremarkable except as noted in HPI and below Physical Exam Vital Signs: Last Vital Signs Pulse 93 07/19/23 14:25 BP 145/74 H 07/19/23 14:25 Pulse Ox 97 07/19/23 14:25 Oxygen Delivery Method Room Air 07/19/23 14:25 BMI result Body Mass Index 21.1 General: Appears afebrile. No acute distress. Alert and oriented. Mood and affect appropriate. Follows and participates in conversation appropriately. Respiratory effort is unlabored. No cough. Able to transition from sit to stand unassisted. Ambulates with bilaterally normal heel strike and toe off. HEENT Head: Yes normal to inspection, Yes No palpable skull fracture present, Yes normocephalic, Yes atraumatic, No occipital foramen tenderness and No scalp tenderness Neck Other: Patient with decreased cervical ROM in all planes, especially with left lateral rotation and bending. Reports increased pain with cervical extension more than flexion. Reports mild dizziness when she overextends her head which she reports she cause her swaying with walking. No postural sway noted during today's exam or visit. Spurling compression test equivocal. Pain is unchanged by Spurling maneuver with retraction. Elvey's tension test positive on the left, with radiation of pain from neck to wrist and all fingers. Lhermitte's test was negative. DTR intact, +1 and symmetrical. Patient demonstrated 5/5 right 4/5 left motor strength of bilateral upper extremities. 2 + radial pulses. Significant tightness throughout left upper trapezius as well as TTP throughout bilateral upper trapezius muscles. No paravertebral tenderness over facet joints bilaterally. Neck: Yes normal visual inspection, Yes no lymphadenopathy, Yes supple, No anterior neck swelling, Yes no JVD, No prominent supraclavicular fat pad and No prominent dorsocervical fat pad Back/Spine/Pelvis Cervical Spine: loss of normal cervical lordosis, cervical muscular tenderness, pain with cervical ROM, No Cervical spine scars present and No Cervical spine tenderness Thoracic/Lumbar Spine: thoracic and lumbar spine normal to inspection, No Thoracic/lumbar spine scar(s), Lasegue's sign negative, straight leg raise negative bilaterally, pain with thoraco-lumbar ROM, thoraco-lumbar ROM limited, Thoracic/lumbar scoliosis, No thoracic spinal tenderness and lumbar spinal tenderness at L3, at L4 and at L5 Results Reviewed Results Reviewed: NE electromyogram (EMG); NE nerve conduction velocity 06/20/23 FINDINGS: All motor and sensory nerves tested showed normal latencies, amplitudes and conduction velocities. Concentric needle EMG was performed in selected muscles of the left upper extremity and cervical paraspinals. Study revealed signs of electric abnormalities as shown in the table above.. Left FCR, biceps, 1st dorsal interosseous showed increased insertional activity, PSWs and fibrillations. Left lower cervical paraspinals showed increased insertional activity, PSWs, fibrillations. IMPRESSION: 1. This is an abnormal] study. 2. There is electrodiagnostic evidence for left acute lower cervical radiculopat hy, involving left C6/C7/C8 nerve roots.. 3. There is no electrodiagnostic evidence for median neuropathy, ulnar neuropathy, or brachial plexopathy. Assessment & Plan Assessment & Plan (1) Cervical radiculopathy at C6: Code(s): M54.12 - Radiculopathy, cervical region Category: Medical (2) Muscle spasms of neck: Code(s): M62.838 - Other muscle spasm Category: Medical (3) Cervical spondylosis: Code(s): M47.812 - Spondylosis without myelopathy or radiculopathy, cervical region Category: Medical (4) Right shoulder pain: Code(s): M25.511 - Pain in right shoulder Category: Medical (5) Cervical radiculopathy at C6: Code(s): M54.12 - Radiculopathy, cervical region Category: Medical (6) Muscle spasms of neck: Code(s): M62.838 - Other muscle spasm Category: Medical (7) Cervical spondylosis: Code(s): M47.812 - Spondylosis without myelopathy or radiculopathy, cervical region Category: Medical (8) Right shoulder pain: Code(s): M25.511 - Pain in right shoulder Category: Medical Plan Cervical spine and right shoulder with pelvis imaging to assess degree of degenerative changes, any subluxation, listhesis, compression fractures or pars defects. Pending cervical spine MRI to further follow up on recent EMG/NVC studies. Scripts provided for baclofen and topical diclofenac. Side effects and precautions discussed with patient. All questions and concerns have been answered and patient agreed with the plan. Patient will return to the clinic to discuss results of the MRI/xray findings when it is done and consider interventional therapy as indicated.? Orders: Orders XR cervical spine min 6V 07/19/23 M47.812 - Spondylosis without myelopathy or radiculopathy, cervical region, M54.12 - Radiculopathy, cervical region, M62.838 - Other muscle spasm XR shoulder RT min 2V 07/19/23 M25.511 - Pain in right shoulder Medications: New baclofen 10 mg PO BID 30 days PRN 60 tabs 0RF muscle spasm M47.812 - Spondylosis without myelopathy or radiculopathy, cervical region, M54.12 - Radi culopathy, cervical region, M62.838 - Other muscle spasm diclofenac sodium 1% (Arthritis Pain (diclofenac)) 4 grams topical QID 100 grams 2RF pain M25.511 - Pain in right shoulder, M47.812 - Spondylosis without myelopathy or radiculopathy, cervical region Coding Level of Care Code New Pt Level 4 (53557) Diagnoses Cervical radiculopathy at C6 M54.12 Muscle spasms of neck M62.838 Cervical spondylosis M47.812 Right shoulder pain M25.511
[2023-07-19 14:25] VITALS: BP 145/74; PULSE 93; O2SAT 97; BMI 21.1
== END 2023-07-19 14:59 | disposition home or self-care (01) ==
PROVIDERS: PCP Nurse Practitioner Primary Care; Visit Provider Nurse Practitioner Family
DX: M54.12 Radiculopathy, cervical region (principal); M62.838 Other muscle spasm; M47.812 Spondylosis without myelopathy or radiculopathy, cervical region; M25.511 Pain in right shoulder
CPT/HCPCS: 99204

== ENCOUNTER → 2023-07-19 14:14 | Outpatient (BNVA) | payer MEDICARE, MEDICAID, SELFPAY | PROVIDERS: PCP Nurse Practitioner Primary Care; Visit Provider Nurse Practitioner Family | DX: M47.22 Other spondylosis with radiculopathy, cervical region (principal); R76.8 Other specified abnormal immunological findings in serum; M35.01 Sjogren syndrome with keratoconjunctivitis; M62.838 Other muscle spasm; M25.511 Pain in right shoulder | CPT/HCPCS: 99202 ==

== ENCOUNTER 2023-07-26 15:17 | Outpatient (REF) | payer MEDICARE, MEDICAID, SELFPAY ==
--- NOTE | ~2023-07-26 | XR_ITS ---
EXAMINATION: XR RIGHT SHOULDER XR CERVICAL SPINE CLINICAL INFORMATION: Pain right shoulder, spondylosis without myelopathy or radiculopathy cervical region. COMPARISON: Right shoulder 06/17/2020. TECHNIQUE: 5 views right shoulder. 8 views cervical spine. FINDINGS: RIGHT SHOULDER: Diffuse demineralization. Moderate degenerative changes in the acromioclavicular joint with joint space narrowing and hypertrophic change. Glenohumeral alignment preserved. Minimal soft tissue calcifications have spurring along the greater tuberosity. CERVICAL SPINE: Diffuse demineralization. Degenerative changes between the anterior arch of C1 and the odontoid. Moderate multilevel cervical spondylosis. Cervical disc space heights are preserved. Minimal anterolisthesis of C2 on C3, C3 on C4, C4 on C5, and C5 on C6 with flexion and reduces with extension. Minimal retrolisthesis of C4 on C5, and C5 on C6 with extension. XR/XR shoulder RT min 2V IMPRESSION: 1. Moderate degenerative changes right acromioclavicular joint. 2. Moderate multilevel cervical spondylosis.
--- NOTE | ~2023-07-26 | MR_ITS ---
EXAMINATION: MR CERVICAL SPINE WITHOUT CONTRAST CLINICAL INFORMATION: 67-year-old with radiculopathy, cervical region. Self-reported neck pain and cervical radicular symptoms. COMPARISON: None available. TECHNIQUE: MRI of the cervical spine was obtained using routine sequences without contrast. FINDINGS: ALIGNMENT: The head is noted to be in mild hyperextension, likely positional in the scanner. Otherwise, lordotic curvature is noted without significant spondylolisthesis or retrolisthesis. CRANIOCERVICAL JUNCTION/C1-C2 ARTICULATIONS: Intact and aligned. VISUALIZED INTRACRANIAL STRUCTURES: Within normal limits. VERTEBRAL BODIES: Vertebral body heights are well-maintained. DISC SPACES AND ENDPLATES: The intervertebral disc space heights are well-maintained. There are mild degrees of anterior marginal spondylosis between C3-C4 and C6-C7 inclusive. Endplates appear grossly intact. There is multilevel loss of intradiscal T2-weighted signal between C2-C3 and C7-T1 inclusive. BONE MARROW: No suspicious marrow-replacing process or bone marrow edema. C2-C3: No disc herniation or canal stenosis. No significant DJD or neural foraminal stenosis. C3-C4: Minimal central to right paramedian disc protrusion with slight indentation of the ventral thecal sac on the right without cord impingement or canal stenosis. Wwax-bq-wpwvaame facet joint arthropathy, left more than right and uncinate process spurring without significant neural foraminal stenosis. C4-C5: Mild posterior disc osteophyte complex without cord impingement or canal stenosis. There is oify-mn-fqamglau facet joint arthropathy left more than right with uncovertebral spurring without significant neural foraminal stenosis. C5-C6: No disc herniation or canal stenosis. There is tque-bh-kbnpbjjd facet joint arthropathy on the left without significant neural foraminal stenosis. C6-C7: Small left paramedian disc osteophyte complex. No cord impingement or canal stenosis. Uncovertebral spurring noted on the left with minor left-sided foraminal narrowing without neural impingement. Small perineural cyst in the right neural foramen. C7-T1: Normal annular contour. Mild facet joint arthropathy on the left. No canal or foraminal stenosis. T1-T2: Normal annular contour. No significant canal stenosis. Mild facet joint arthropathy on the right. No neural foraminal stenosis. Very small perineural cyst in the left neural foramen. SPINAL CORD: Normal in caliber and signal. No focal lesion, edema or syrinx. EXTRACRANIAL SOFT TISSUES: The visualized extracranial head/neck soft tissues are unremarkable within the limitations of the study. Signal voids are seen within the visualized major neck vessels. No prevertebral soft tissue edema. Mild focal pleural thickening at the right lung apex is noted which is nonspecific. MR/MR cervical spine wo con IMPRESSION: 1. Multilevel mild degrees of spondylosis, as described above, with mild central to right paramedian disc protrusion at C3-C4, mild posterior disc osteophyte complex at C4-C5 and small left paramedian disc osteophyte complex at C6-C7 without cord impingement or canal stenosis. 2. Multilevel lxty-ah-nwivkbne degrees of facet joint arthropathy as described above without significant neural foraminal stenosis. 3. Normal appearance to the spinal cord. 4. Mild focal pleural thickening suspected at the right lung apex. Nonspecific finding. Suggest follow-up CT of the chest with contrast in 3 months to reassess.
--- NOTE | ~2023-07-26 | XR_ITS ---
EXAMINATION: XR RIGHT SHOULDER XR CERVICAL SPINE CLINICAL INFORMATION: Pain right shoulder, spondylosis without myelopathy or radiculopathy cervical region. COMPARISON: Right shoulder 06/17/2020. TECHNIQUE: 5 views right shoulder. 8 views cervical spine. FINDINGS: RIGHT SHOULDER: Diffuse demineralization. Moderate degenerative changes in the acromioclavicular joint with joint space narrowing and hypertrophic change. Glenohumeral alignment preserved. Minimal soft tissue calcifications have spurring along the greater tuberosity. CERVICAL SPINE: Diffuse demineralization. Degenerative changes between the anterior arch of C1 and the odontoid. Moderate multilevel cervical spondylosis. Cervical disc space heights are preserved. Minimal anterolisthesis of C2 on C3, C3 on C4, C4 on C5, and C5 on C6 with flexion and reduces with extension. Minimal retrolisthesis of C4 on C5, and C5 on C6 with extension. XR/XR cervical spine min 6V IMPRESSION: 1. Moderate degenerative changes right acromioclavicular joint. 2. Moderate multilevel cervical spondylosis.
== END 2023-07-26 15:18 | disposition home or self-care (01) ==
LOC: HO.MRI 15:17
PROVIDERS: Absent Provider Nurse Practitioner Family; PCP Nurse Practitioner Primary Care; Visit Provider Student in an Organized Health Care Education/Training Program
DX: M25.511 Pain in right shoulder (principal); M47.812 Spondylosis without myelopathy or radiculopathy, cervical region; M54.12 Radiculopathy, cervical region; M62.838 Other muscle spasm
CPT/HCPCS: 72052; 72141; 73030

== ENCOUNTER 2023-08-21 14:54 | Outpatient (AMB) | payer MEDICARE, MEDICAID, SELFPAY ==
--- NOTE | 2023-08-21 13:04 | HO.SPINEOV ---
Intake Visit Reasons: Radiculopathy, cervical Intake Note: Ms. Deon Negrete is here today c/o neck pain that radiates down both arms. Language And Literature Division Chair Required: Yes Language And Literature Division Chair Name: Tablet Allergies broccoli Allergy (Severe, Verified 08/21/23 15:11) Swelling clindamycin Adverse Reaction (Verified 08/21/23 15:11) Shortness of Breath, Angina Assessment & Plan Assessment & Plan (1) Diffuse pain: Code(s): R52 - Pain, unspecified Category: Medical Plan Dear Dr. Ellis, Thank you for referring Nicolasa to our office today. She is a pleasant 67-year-old female who comes in today with a chief complaint of pain in her neck, shoulders, arms, and fingers. She does not describe his pain as shooting/radiating, but more so states it is ?constantly there.? She reports associated numbness and burning which accompanies this pain. She states that when using her arms extensively & attempting to bend low to grab things her pain exacerbates. She denies any alleviating factors, and reports being in constant low-grade pain. She has attempted to use pdgi-mrj-mbdxprc ibuprofen to help mitigate the pain with very modest relief. She has also tried a prescription of Celebrex in the past. She reports being sent to physical therapy 2 years ago by her primary care provider. She has not tried any other conservative treatments for this pain as of yet. She did have an EMG completed which showed a left-sided C6/7/8 radiculopathy, without evidence of carpal tunnel or cubital tunnel syndrome. PMH: Sjogren syndrome, colonic polyps, osteoporosis, asthma, hemorrhoids, chronic constipation, diverticulosis. Social hx: Patient does not smoke, reports no substance use. Medications: Albuterol, alendronate, baclofen, calcium, cetirizine, vitamin D3, clobetasol, diclofenac, epinephrine, Advil, levothyroxine, meclizine. Allergies: Clindamycin Physical exam: The patient has 5/5 strength in her upper and lower extremities. She has no significant sensational deficits. Her reflexes are 2+ intact in her upper and lower extremities. She is able to ambulate well without a spastic gait. (-) Thomas's, (-) clonus, (-) Lhermitte's. Imaging review: MRI of the cervical spine shows no acute central canal or foraminal stenosis. I do not see any evidence for left C6/C7/C8 acute radiculopathy as mentioned in her EMG report. The left-sided foramen at these levels appear patent. Impression: Nicolasa is a pleasant 67-year-old female who comes in today with a chief complaint of bilateral finger/shoulder/neck/upper arm pain which is accompanied by intermittent numbness and burning. She states she is in constant pain and identifies onset roughly 3 years ago. She is unable to identify any sort of inciting incident, and reports no trauma or injuries. I think that it is much more likely that she is suffering from some kind of chronic disorder/disease likely associated with either a musculoskeletal or rheumatological condition vs. a neurological issue as a result of nerve impingement. She has no myelopathic reflexes and no acute radiculopathy that I am able to identify. Her MRI imaging looks fantastic. All of the left-sided foramen appear patent without evidence of stenosis. I encouraged her to continue following up with our colleagues in pain management. No need for an acute neurosurgical intervention at this time. Thank you for allowing us to care for your patient. The total time spent with this visit with this patient was 45 minutes reviewing history, physical exam, MRI imaging review, and implementation of treatment plan or further diagnostic testing Juancarlos López MD,PhD [facility] Coding Level of Care Code New Pt Level 4 (56070) Diagnoses Diffuse pain R52
== END 2023-08-21 15:53 | disposition home or self-care (01) ==
PROVIDERS: PCP Nurse Practitioner Primary Care; Referring Provider Student in an Organized Health Care Education/Training Program; Visit Provider Physician Assistant
DX: R52 Pain, unspecified (principal)
CPT/HCPCS: 99204

== ENCOUNTER → 2023-08-21 14:54 | Outpatient (BNVA) | payer MEDICARE, MEDICAID, SELFPAY | PROVIDERS: PCP Nurse Practitioner Primary Care; Visit Provider Physician Assistant | DX: R52 Pain, unspecified (principal) | CPT/HCPCS: 99202 ==

== ENCOUNTER 2023-08-27 14:48 | Outpatient (AMB) | payer MEDICARE, MEDICAID, SELFPAY ==
--- NOTE | 2023-08-27 14:49 | MHC.OFFVIS ---
Vital Signs 08/27/23 14:54 Height 4 ft 11 in Weight 106 lb BMI 21.4 BP 141/69 H Blood Pressure Location Rt brachial Position Sitting Pulse 85 Pulse Source Pulse Oximeter Pulse Oximetry (%) 99 Oxygen Delivery Method Room Air Intake Visit Reasons: Discuss MRI Results Intake Note: Pain today 05/15 Drop Hammer Operator Helper Required: Yes Drop Hammer Operator Helper Language: Public Address Servicer Services: Drop Hammer Operator Helper Present Drop Hammer Operator Helper Name: Amanda #[id number] Accompanied by: Self / Same As Patient Allergies broccoli Allergy (Severe, Verified 08/27/23 14:54) Swelling clindamycin Adverse Reaction (Verified 08/27/23 14:54) Shortness of Breath, Angina HPI Comments Details: Patient presents today for follow up to discuss recent cervical and right shoulder xray and cervical spine MRI reports. She was seen by [facility] last week for cervical radiculopathy per recent EMG/NVC studies and was deemed non-surgical given no cord impingement or canal stenosis and no significant neural foraminal stenosis on recent MRI findings. She continues to report significant right shoulder pain, neck pain and numbness and aching in her hands with daily activities. Pain consistent with cervical spondylosis and right shoulder OA. She also has chronic joint pain located in her fingers, toes, knees, hips and mid to low back. Patient reports right shoulder pain is worse than neck pain. She is interested to undergo injections for both pain generators. Denies any recent cough, cold, infection, fever or other significant changes in medical history since last office visit. Denies any changes to medications, medical history or recent hospitalizations. PRIOR: Patient is a pleasant 67 years old Trin[place] speaking female with prior history of arthritis, bilateral hand numbness, neck pain positive JEREMY, h/o Sjogren syndrome, presents today for initial evaluation of neck pain with radiation into her both shoulders, right shoulder worse than left. She is right hand dominant. 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 Reports radiation of neck pain into left upper extremity and fingers with burning, tingling and mild weakness. Patient reports numbness in her hands when handing hands over her sides or while holding her phone, worse on the right. She reports multiple joint pain and Raynauds in fingers since 16 yo. She also reports increased right shoulder pain and has difficulty with overhead reaches or reaching her back pockets. Overextending her neck causes her dizziness and swaying while walking. Patient has been referred to us by , Rheumatology for left C6 radiculopathy with pending cervical spine MRI on 07/26/23. Pain affects her daily activities and functioning and is worse during the day. Denies any recent or past trauma, injury or falls. Recent Neurodiagnostic studies showed left acute lower cervical radiculopathy, involving left C6/C7/C8 nerve roots and no electrodiagnostic evidence for median neuropathy, ulnar neuropathy, or brachial plexopathy. Location: Lower neck radiates to bilateral shoulders to lower back and hands Duration: Chronic pain for many years, worse for the last 6 months Characteristics of symptom or complaint: Aching, hot burning, numbness, tingling, squeezing Aggravating or associated factors: Any sudden movement, phone use, lifting, pulling Relieving factors: Ibuprofen, activity modifications, rest Treatment: EMG study [facility] Medical History (Updated 08/27/23 @ 15:40 by THALIA Taylor) Raynauds disease Chronic constipation Osteoporosis Left breast lump Sjogren's syndrome with keratoconjunctivitis sicca JEREMY positive Surgical History H/O: hysterectomy Hx of cholecystectomy Family History Daughter Asthma Sister SLE (systemic lupus erythematosus related syndrome) Social History Household Members: Family Are you a primary care director to a significant other at home: Yes Do you presently have visiting nurse or other home services: No Alcohol intake: never Patient Tobacco Use Status: Never used Tobacco Second Hand Smoke Exposure: Yes Current occupational status: disabled Review of Systems Const All systems reviewed & are unremarkable except as noted in HPI and below Physical Exam Vital Signs: Last Vital Signs Pulse 85 08/27/23 14:54 BP 141/69 H 08/27/23 14:54 Pulse Ox 99 08/27/23 14:54 Oxygen Delivery Method Room Air 08/27/23 14:54 BMI result Body Mass Index 21.4 General: Appears afebrile. No acute distress. Alert and oriented. Mood and affect appropriate. Follows and participates in conversation appropriately. Respiratory effort is unlabored. No cough. Able to transition from sit to stand unassisted. Ambulates with bilaterally normal heel strike and toe off. HEENT Head: Yes normal to inspection, Yes No palpable skull fracture present, Yes normocephalic, Yes atraumatic, No occipital foramen tenderness and No scalp tenderness Neck Other: Patient with decreased cervical ROM in all planes, especially with left lateral rotation and bending. Reports increased pain with cervical extension more than flexion. Patient demonstrated 5/5 motor strength of bilateral upper extremities. 2 + radial pulses. Mild tightness throughout left upper trapezius as well as TTP throughout bilateral upper trapezius muscles. No paravertebral tenderness over facet joints bilaterally. Neck: Yes normal visual inspection, Yes no lymphadenopathy, Yes supple, No anterior neck swelling, Yes no JVD, No prominent supraclavicular fat pad and No prominent dorsocervical fat pad Resp Effort & Inspection: normal respiratory effort, able to speak in complete sentences, no cough, no respiratory distress and symmetric chest movement Back/Spine/Pelvis Cervical Spine: loss of normal cervical lordosis, cervical muscular tenderness, pain with cervical ROM, No Cervical spine scars present, No Cervical spine tenderness and No step off deformity Thoracic/Lumbar Spine: thoracic and lumbar spine normal to inspection, No Thoracic/lumbar spine scar(s), Lasegue's sign negative, straight leg raise negative bilaterally, pain with thoraco-lumbar ROM, thoraco-lumbar ROM limited, Thoracic/lumbar scoliosis, No thoracic spinal tenderness and lumbar spinal tenderness at L3, at L4 and at L5 Extrem General: Yes capillary refill normal, Yes no clubbing, cyanosis or edema and Yes no calf tenderness Right upper extremity: shoulder/upper arm (limited ROM due to pain.) Details: normal to inspection, tenderness Location: of the A-C joint and over the biceps tendon and crepitus; no swelling, no ecchymosis, no deformity and no unusual warmth Results Reviewed Results Reviewed: NE electromyogram (EMG); NE nerve conduction velocity 06/20/23 FINDINGS: All motor and sensory nerves tested showed normal latencies, amplitudes and conduction velocities. Concentric needle EMG was performed in selected muscles of the left upper extremity and cervical paraspinals. Study revealed signs of electric abnormalities as shown in the table above.. Left FCR, biceps, 1st dorsal interosseous showed increased insertional activity, PSWs and fibrillations. Left lower cervical paraspinals showed increased insertional activity, PSWs, fibrillations. IMPRESSION: 1. This is an abnormal] study. 2. There is electrodiagnostic evidence for left acute lower cervical radiculopathy, involving left C6/C7/C8 nerve roots.. 3. There is no electrodiagnostic evidence for median neuropathy, ulnar neuropathy, or brachial plexopathy. MR CERVICAL SPINE WITHOUT CONTRAST 07/26/23 CLINICAL INFORMATION: 67-year-old with radiculopathy, cervical region. Self-reported neck pain and cervical radicular symptoms. MRI of the cervical spine was obtained using routine sequences without contrast. FINDINGS: ALIGNMENT: The head is noted to be in mild hyperextension, likely positional in the scanner. Otherwise, lordotic curvature is noted without significant spondylolisthesis or retrolisthesis. CRANIOCERVICAL JUNCTION/C1-C2 ARTICULATIONS: Intact and aligned. VISUALIZED INTRACRANIAL STRUCTURES: Within normal limits. VERTEBRAL BODIES: Vertebral body heights are well-maintained. DISC SPACES AND ENDPLATES: The intervertebral disc space heights are well-maintained. There are mild degrees of anterior marginal spondylosis between C3-C4 and C6-C7 inclusive. Endplates appear grossly intact. There is multilevel loss of intradiscal T2-weighted signal between C2-C3 and C7-T1 inclusive. BONE MARROW: No suspicious marrow-replacing process or bone marrow edema. C2-C3: No disc herniation or canal stenosis. No significant DJD or neural foraminal stenosis. C3-C4: Minimal central to right paramedian disc protrusion with slight indentation of the ventral thecal sac on the right without cord impingement or canal stenosis. Pcki-ia-megqlehs facet joint arthropathy, left more than right and uncinate process spurring without significant neural foraminal stenosis. C4-C5: Mild posterior disc osteophyte complex without cord impingement or canal stenosis. There is obiu-qb-clbbkclt facet joint arthropathy left more than right with uncovertebral spurring without significant neural foraminal stenosis. C5-C6: No disc herniation or canal stenosis. There is ascx-tv-sfunfqgf facet joint arthropathy on the left without significant neural foraminal stenosis. C6-C7: Small left paramedian disc osteophyte complex. No cord impingement or canal stenosis. Uncovertebral spurring noted on the left with minor left-sided foraminal narrowing without neural impingement. Small perineural cyst in the right neural foramen. C7-T1: Normal annular contour. Mild facet joint arthropathy on the left. No canal or foraminal stenosis. T1-T2: Normal annular contour. No significant canal stenosis. Mild facet joint arthropathy on the right. No neural foraminal stenosis. Very small perineural cyst in the left neural foramen. SPINAL CORD: Normal in caliber and signal. No focal lesion, edema or syrinx. EXTRACRANIAL SOFT TISSUES: The visualized extracranial head/neck soft tissues are unremarkable within the limitations of the study. Signal voids are seen within the visualized major neck vessels. No prevertebral soft tissue edema. Mild focal pleural thickening at the right lung apex is noted which is nonspecific. IMPRESSION: 1. Multilevel mild degrees of spondylosis, as described above, with mild central to right paramedian disc protrusion at C3-C4, mild posterior disc osteophyte complex at C4-C5 and small left paramedian disc osteophyte complex at C6-C7 without cord impingement or canal stenosis. 2. Multilevel jcoq-jm-cjbqkgdt degrees of facet joint arthropathy as described above without significant neural foraminal stenosis. 3. Normal appearance to the spinal cord. 4. Mild focal pleural thickening suspected at the right lung apex. Nonspecific finding. Suggest follow-up CT of the chest with contrast in 3 months to reassess. XR RIGHT SHOULDER XR CERVICAL SPINE 07/26/23 CLINICAL INFORMATION: Pain right shoulder, spondylosis without myelopathy or radiculopathy cervical region. COMPARISON: Right shoulder 06/17/2020. TECHNIQUE: 5 views right shoulder. 8 views cervical spine. FINDINGS: RIGHT SHOULDER: Diffuse demineralization. Moderate degenerative changes in the acromioclavicular joint with joint space narrowing and hypertrophic change. Glenohumeral alignment preserved. Minimal soft tissue calcifications have spurring along the greater tuberosity. CERVICAL SPINE: Diffuse demineralization. Degenerative changes between the anterior arch of C1 and the odontoid. Moderate multilevel cervical spondylosis. Cervical disc space heights are preserved. Minimal anterolisthesis of C2 on C3, C3 on C4, C4 on C5, and C5 on C6 with flexion and reduces with extension. Minimal retrolisthesis of C4 on C5, and C5 on C6 with extension. IMPRESSION: 1. Moderate degenerative changes right acromioclavicular joint. 2. Moderate multilevel cervical spondylosis. Assessment & Plan Assessment & Plan (1) Muscle spasms of neck: Code(s): M62.838 - Other muscle spasm Category: Medical (2) Cervical spondylosis: Code(s): M47.812 - Spondylosis without myelopathy or radiculopathy, cervical region Category: Medical (3) Right shoulder pain: Code(s): M25.511 - Pain in right shoulder Category: Medical (4) Muscle spasms of neck: Code(s): M62.838 - Other muscle spasm Category: Medical (5) Cervical spondylosis: Code(s): M47.812 - Spondylosis without myelopathy or radiculopathy, cervical region Category: Medical (6) Right shoulder pain: Code(s): M25.511 - Pain in right shoulder Category: Medical (7) 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 She was seen by [facility] last week for cervical radiculopathy per recent EMG/NVC studies and was deemed non-surgical. Patient reports right shoulder pain is worse than neck pain. She is interested to undergo injections for both pain generators. Schedule right shoulder intra-articular shoulder steroid (half-dose due to h/o osteoporosis) with local and fluoroscopy. If no relief after the injection will plan for right suprascapular nerve block for potential suprascapular peripheral nerve stimulator. Expectations, risks and benefits were reviewed. Patient is aware she will be contacted to schedule this procedure. For axial cervical spine pain, will tentatively plan for Diagnostic Bilateral C4-C5-C6 MBBs with local and fluoroscopy. Continue baclofen and topical diclofenac and continue to monitor for any side effects. Copy of cervical spine MRI report included is forwarded to patient's PCP to further follow up for incidental findings of mild focal pleural thickening suspected at the right lung apex with recommendations to follow up with CT of the chest with contrast in 3 months to reassess per recent MRI. All questions and concerns have been answered and patient agreed with the plan. Follow up after injections and sooner as needed. Medications: Refilled diclofenac sodium 1% (Arthritis Pain (diclofenac)) 4 grams topical QID 100 grams 3RF pain M25.511 - Pain in right shoulder, M47.812 - Spondylosis without myelopathy or radiculopathy, cervical region Coding Level of Care Code Est Pt Level 4 (53851) Diagnoses Muscle spasms of neck M62.838 Cervical spondylosis M47.812 Right shoulder pain M25.511 Degenerative joint disease of right acromioclavicular joint M19.011
[2023-08-27 14:54] VITALS: BP 141/69; PULSE 85; O2SAT 99; BMI 21.4
== END 2023-08-27 15:13 | disposition home or self-care (01) ==
PROVIDERS: PCP Nurse Practitioner Primary Care; Visit Provider Nurse Practitioner Family
DX: M62.838 Other muscle spasm (principal); M47.812 Spondylosis without myelopathy or radiculopathy, cervical region; M25.511 Pain in right shoulder; M19.011 Primary osteoarthritis, right shoulder
CPT/HCPCS: 99214

== ENCOUNTER → 2023-08-27 14:48 | Outpatient (BNVA) | payer MEDICARE, MEDICAID, SELFPAY | PROVIDERS: PCP Nurse Practitioner Primary Care; Visit Provider Nurse Practitioner Family | DX: M62.838 Other muscle spasm (principal); M47.812 Spondylosis without myelopathy or radiculopathy, cervical region; M25.511 Pain in right shoulder; M19.011 Primary osteoarthritis, right shoulder | CPT/HCPCS: 99212 ==

== ENCOUNTER 2023-12-12 15:37 | Outpatient (AMB) | payer MEDICARE, MEDICAID, SELFPAY ==
--- NOTE | 2023-12-12 15:44 | MHC.OFFVIS ---
Vital Signs 12/12/23 15:54 Height 4 ft 11 in Weight 107 lb 9.369 oz BMI 21.7 BP 109/78 Blood Pressure Location Lt brachial Position Sitting Pulse 108 H Pulse Source Pulse Oximeter Pulse Oximetry (%) 98 Oxygen Delivery Method Room Air Intake Visit Reasons: Sjogren's/lm Intake Note: Patient last seen by Doctor Richy Ellis on 06/07/23. Presents today for Sjogren's follow up and test results. Fine Grade Operator Name: [id number] Richard Allergies broccoli Allergy (Severe, Verified 12/12/23 15:50) Swelling clindamycin Adverse Reaction (Verified 12/12/23 15:50) Shortness of Breath, Angina Medication List - Last Reconciled 12/12/23 by Richy Ellis MD albuterol sulfate 90 mcg/actuation (Ventolin HFA) 1 inh inhalation Q4-6H PRN alendronate 70 mg PO QWEEK baclofen 10 mg PO BID PRN 30 days calcium carbonate 500 mg PO BID cetirizine 10 mg PO cholecalciferol (vitamin D3) (Vitamin D3) 50 mcg PO DAILY clobetasol 0.05% topical diclofenac sodium 1% (Arthritis Pain (diclofenac)) 4 grams topical QID epinephrine IM DIRECTED ibuprofen (Advil) 200 mg PO Q6H PRN levothyroxine (Synthroid) 50 mcg PO DAILY magnesium oxide 400 mg PO DAILY meclizine 25 mg PO BID PRN prednisolone acetate 1% drps ophthalmic (eye) DAILY HPI Comments Details: 68 y/o presents for follow-up of Sjogrens. She is not on any DMARDs. She states that she feels about the same overall. No cough or shortness of breath. No significant joint pains. No significant weight change. Initial history: Pt reports joint pain located in her fingers, toes, knees, hips, mid back. Pain has been present for years and slowly worsening. Pain is present all day long. Pain is worse with activity. Has diffuse morning stiffness that lasts a few minutes. Feels that her hands swell occasionally. Pain is aching in nature, can get up to 5/10. Pt uses Sulindac for severe pain which helps a little. + Raynauds in fingers since 16yo, no history of digital ulcers + dry eyes + thinning hair, no alopecia Pt denies photosensitivity, oral or nasal ulcers, oral dryness, fevers, alopecia. Sister with SLE. No family history of RA. [facility] Medical History Raynauds disease Chronic constipation Osteoporosis Left breast lump Sjogren's syndrome with keratoconjunctivitis sicca JEREMY positive Surgical History H/O: hysterectomy Hx of cholecystectomy Family History Daughter Asthma Sister SLE (systemic lupus erythematosus related syndrome) Social History Household Members: Family Are you a primary administrator health care facility to a significant other at home: Yes Do you presently have visiting nurse or other home services: No Alcohol intake: never Patient Tobacco Use Status: Never used Tobacco Second Hand Smoke Exposure: Yes Current occupational status: disabled Review of Systems Musc Reports back pain and Reports arthralgias Skin/Breast Details: Raynaud's Physical Exam Vital Signs: Last Vital Signs Pulse 108 H 12/12/23 15:54 BP 109/78 12/12/23 15:54 Pulse Ox 98 12/12/23 15:54 Oxygen Delivery Method Room Air 12/12/23 15:54 BMI result Body Mass Index 21.7 Const General: cooperative, no acute distress and well developed Orientation/consciousness: patient oriented x3 HEENT Head: Yes normal to inspection Resp Effort & Inspection: normal respiratory effort and able to speak in complete sentences Auscultation: no wheezes Cardio Rate: regular rate Rhythm: regular rhythm Heart sounds: S1 normal heart sound present and S2 normal heart sound present Neuro General: patient oriented x3 Extrem Other: No synovitis on exam. Bilateral Juvenal's Heberden's nodes, some are slightly tender to palpation Normal nailfold capillaroscopy today Normal range of motion of shoulders without pain Slightly Cool fingertips, no digital ulcers General: Yes no pedal edema Psych Attitude: cooperative Assessment & Plan Assessment & Plan (1) Sjogren's syndrome with keratoconjunctivitis sicca: Code(s): M35.01 - Sjogren syndrome with keratoconjunctivitis Category: Medical Plan: This is a 68-year-old female with Sjogren's (dry eyes, dry mouth, +++SSa, arthralgias, leukopenia, Raynaud's) who presents for follow-up. Patient is doing well overall. No need to start patient on DMARDs today. There is no active synovitis on exam 2D echo 2022 unremarkable except for grade 1 diastolic dysfunction PFTs unremarkable except for mildly reduced TLC at 65%, DLCO 98% . Plan to repeat 2D echo and PFTs next year Per patient a CT scan of the chest was ordered by her PCP. It was scheduled for next month. Advised patient to have the radiology department send me the report. Labs before next visit in 12 months (2) Raynauds disease: Code(s): I73.00 - Raynaud's syndrome without gangrene Category: Medical Qualifiers: Raynaud?s-associated gangrene presence: without gangrene Qualified Code(s): I73.00 - Raynaud's syndrome without gangrene Plan: History of Raynaud's since age 16. There is no history of digital tip ulcers. I discussed conservative measures for Raynaud's including avoiding tobacco exposure, patient's son-in-law smokes in the house. Keep core and extremity temperature warm. Use gloves and glove warmers, consider electric gloves. Raynaud symptoms are relatively well controlled. No need to start medication Plan I spent 24 minutes reviewing patient's chart, evaluating patient, placing orders, counseling patient and documenting in the chart Orders: Orders PFT pulmonary function test 11/10/24 R06.02 - Shortness of breath CA echo transthoracic complete 11/10/24 R06.02 - Shortness of breath Coding Level of Care Code Est Pt Level 4 (92938) Diagnoses Sjogren's syndrome with keratoconjunctivitis sicca M35.01 Raynaud's disease without gangrene I73.00 Raynaud?s-associated gangrene presence: without gangrene
[2023-12-12 15:54] VITALS: BP 109/78; PULSE 108; O2SAT 98; BMI 21.7
== END 2023-12-12 16:21 | disposition home or self-care (01) ==
PROVIDERS: PCP Nurse Practitioner Primary Care; Visit Provider Student in an Organized Health Care Education/Training Program
DX: M35.01 Sjogren syndrome with keratoconjunctivitis (principal); I73.00 Raynaud's syndrome without gangrene
CPT/HCPCS: 99214

== ENCOUNTER → 2023-12-12 15:38 | Outpatient (BNVA) | payer MEDICARE, MEDICAID, SELFPAY | PROVIDERS: PCP Nurse Practitioner Primary Care; Visit Provider Student in an Organized Health Care Education/Training Program | DX: M35.01 Sjogren syndrome with keratoconjunctivitis (principal); I73.00 Raynaud's syndrome without gangrene; R06.02 Shortness of breath | CPT/HCPCS: 99212 ==

== ENCOUNTER 2024-01-10 10:07 | Outpatient (REF) | payer MEDICARE, MEDICAID, SELFPAY ==
[2024-01-11 06:26] LABS: Creatinine POC 0.7 mg/dL (0.5-1.4); GFR POC > 60
== END 2024-01-10 10:08 | disposition home or self-care (01) ==
LOC: HO.CT 10:07
PROVIDERS: PCP Nurse Practitioner Primary Care; Visit Provider Nurse Practitioner Primary Care
DX: R93.89 Abnormal findings on diagnostic imaging of other specified body structures (principal)
CPT/HCPCS: 71260; 82565

== ENCOUNTER 2024-06-20 13:02 | Outpatient (REF) | payer OTHER, SELFPAY ==
--- NOTE | ~2024-06-20 | US_ITS ---
CLINICAL HISTORY: Rule out kidney stones mid back pain and Pos left CVAT US Renal Comparison: None Findings: Right kidney normal size and echotexture, 9.6 cm length. Left kidney normal size and echotexture, 10.4 cm length. Minimal hydronephrosis of right kidney. Normal color Doppler IMPRESSION: 1. Minimal right hydronephrosis. This document has been electronically signed by: Javier Lal MD on 06/21/2024 08:19:11
--- OUTSIDE RECORDS SUMMARY | 2024-06-20 13:04 | XMS_ITS | Clinical Summary ---
Author Organization [employer] Address [address] [facility] [address]t [place] [address] Care Team Providers Care Contracting Support Specialist Name Role Phone Juan Jose Castañeda AARON Primary Care Provider [phone] Allergies Active Allergy Reactions Criticality Noted Date Comments Brassica Oleracea 04/20/2021 Clindamycin 05/20/2020 Spinach 04/20/2021 Medications Calcium Carbonate (CALCI-MIX PO) 0 Refills, Maintenance, 06/06/21 12:11:00 EDT, Partial fill upon patient request if the prescription is for a schedule II opioid drug. 06/07/19 22 Active denosumab (Prolia) 60 MG/ML solution prefilled syringe Inject 1 mL under the skin. Active levothyroxine (Synthroid) 50 MCG tablet take 1 tablet by oral route every day Active EPINEPHrine (Epipen) 0.3 MG/0.3ML injection syringe INJECT INTRAMUSCULARLY DIRECTED ON PACKAGE AND GO TO EMERGENCY ROOM 2 each 09/08/19 23 Active EPINEPHrine (EpiPen 2-Go) 0.3 MG/0.3ML injection syringe inject 0.3 milliliter by intramuscular route once as needed for anaphylaxis; keep on hand in case of emergency 02/06/19 22 Active alendronate (Fosamax) 70 MG tablet take 1 tablet once a week with 6 to 8 oz of water 30 min before first food of day. do not lie down for 30 minutes 10/04/19 23 Active D3 Super Strength 50 MCG (1999 UT) capsule Take 50 mcg by mouth in the morning. 09/05/19 23 Active hydrOXYzine HCl (Atarax) 25 MG tablet Take 25 mg by mouth if needed each day. 06/07/19 22 Active amoxicillin-cl avulanate (Augmentin) 875-125 MG tablet Take 1 tablet by mouth 2 times daily. 14 tablet 11/28/19 24 Active acetaminophen (Tylenol) 500 MG tablet Take 2 tablets (1,000 mg) by mouth every 6 (six) hours if needed for moderate pain or fever for up to 25 doses. 50 tablet 11/28/19 24 Active cetirizine (ZyrTEC) 10 MG tabletIndicati ons:Multiple allergies TAKE 1 TABLET BY MOUTH ONCE DAILY NEEDED FOR ALLERGIES. USE SPARINGLY. 90 tablet 1 12/28/19 24 Active clobetasol (Temovate) 0.05 % ointment APPLY TO THE AFFECTED AREA(S) TWICE A WEEK NEEDED. Had burning with betamethasone 30 g 1 01/24/20 Active naproxen (Naprosyn) 500 MG tablet Take 1 tablet (500 mg) by mouth 2 times daily. 30 tablet 05/20/19 25 025 Active Problems Problem Noted Date Diagnosed Date Low back pain with radiation 05/19/2024 Assessment & Plan (05/19/2024 10:58 AM EDT): UA does not show hematuria so it is probably related to musculoskeletal condition. Given clinical presentation I will order renal ultrasound to rule out kidney stone. Will give Toradol injection today, continue Tylenol as needed pain today and start naproxen twice daily with meals for 1 week Order renal ultrasound and follow-up with PCP Xerostomia 11/01/2022 Dental caries 11/01/2022 Dental plaque 11/01/2022 Dizziness 05/29/2022 Overview (05/29/2022): Has seen cardiology (normal echo & echo w/ bubble) Under eval by neuro (MRI & MRA brain ordered, last notes we have are 07/2020, will request updated notes) JEREMY positive 02/07/2022 History of cholecystectomy 02/07/2022 Leukopenia 02/07/2022 H/O: hysterectomy 02/07/2022 Bilateral carotid artery stenosis 07/18/2021 Overview (05/29/2022): Mild, 0-15% stenosis, follows w/ [facility] Sjogren's syndrome 05/12/2020 Assessment & Plan (08/01/2023 7:07 PM EDT): Sjogren syndrome -referred to Eye care today Osteoporosis 09/30/2019 Age-related osteoporosis wit hout current pathological fracture 09/29/2019 Overview (02/07/2022): Last Assessment & Plan: She had an improvement in her bone mineral density not significant. She states that she finds alendronate is agreeable and asked about switching medication and I told her that she can use Prolia subcutaneous injections every 6 months. However with this medication she has to come to the office every 6 months and cannot miss an injection. She has decided to receive Prolia administration instead. Since she has Medicare I can go ahead and do this today. She will follow in 6 months with the nurse for her next Prolia injection. Then she will follow with me in a year. Since I already sent the prescription for alendronate I asked her to not pick it up. The patient received her first Prolia injection today. Tolerated without adverse effects. Nontoxic multinodular goiter 06/05/2019 Overview (02/07/2022): Last Assessment & Plan: Subcentimeter nodules we will request ultrasound of thyroid gland because she is complaining of neck discomfort but I doubt that this is related to her thyroid gland. Description she is having difficulty with swallowing but not necessarily just a sensation in esophagus. Thyroid nodule 06/05/2019 Overview (02/07/2022): Last Assessment & Plan: The patient is chemically and clinically euthyroid continue levothyroxine 50 mcg repeat thyroid function studies in a year. Resolved Problems Problem Noted Date Diagnosed Date Resolved Date Preseptal cellulitis of left eye 08/01/2023 11/30/2023 Assessment & Plan (08/01/2023 7:07 PM EDT): Pt w symptoms and physical findings suggestive for preseptal cellulitis ,no alarming symptoms -augmentin BID x 7 days -eye lubricants -tylenol PRN -alarm signs and symptoms discussed w pt Encounters Date Type Department Care Team Description 06/10/2024 Telephone [facility] [address] [place] [phone] Juan Jose Castañeda ANP September05/19/2024 11:00 AM EDT Office Visit [facility] [address] [place] [address] Jeremy Granado MD Low back pain with radiation 05/06/[address] [address] Juan Jose Castañeda ANP [employer] ([employer] Premoistened, adult sized incont products.) 04/21/[address] [address] Juan Jose Castañeda ANP Change PCP 04/21/[address] [address] Juan Jose Castañeda ANP MRI Results 04/02/2024 9:15 AM EST Immunization [address] [address] [place] Delia Silverio LPN Encounter for immunization (Primary Dx) 04/02/2024 Travel from Last 3 Months Immunizations Immunization Administration Dates Next Due Hep B, adult 06/03/2020,03/12/2020,02/12/2020 Influenza High-dose Quadriva lent Preservative Free 10/13/2021,02/12/2020 Influenza injectable quadriv alent preservative free 01/15/2023,01/27/2021 Influenza, High Dose Seasona l, Preservative Free 04/02/2024 Pfizer Covid-19 Vaccine 12+ Bivalent 02/13/2022 Pneumococcal Conjugate PCV 13 02/12/2020 Tdap 02/12/2020 Zoster, Recombinant 10/05/2020,08/04/2020 Family History Medical History Relation Name Comments Breast cancer Daughter Relation Name Status Comments Daughter Social History Tobacco Use Types Packs/Day Years Used Date Smoking Tobacco: Never Passive Smoke Exposure: Never Smokeless Tobacco: Never Tobacco Cessation:Counseling Given: Not Answered Alcohol Use Standard Drinks/Week Comments Never 0 (1 standard drink = 0.6 oz pur e alcohol) PHQ-2 Answer Date Recorded Patient Health Questionnaire-2 Score 0 02/07/2022 Housing Stability Answer Date Recorded What is your housing situation today? I have elsa espinoza 11/22/[address] you li ve. Do you have problems with any of the following? None of the above 11/22/2022 Food Insecurity Answer Date Recorded Within the past 12 months, y ou worried that your food would run out before you got money to buy more: Never True 11/22/2022 Within the past 12 months,th e food you bought just didn't last and you didn't have enough money to get more: Never True Transportation Answer Date Recorded In the past 12 months, has l ack of transportation kept you from medical appts, meetings, work or from getting things needed for daily living? No 11/22/2022 Utilities Answer Date Recorded In the past 12 months, has t he electric, gas, oil or water company threatened to shut off services in your home? No 11/22/2022 Depression Answer Date Recorded Patient Health Questionnaire-2 Score 0 02/07/2022 Comments No Sex and Gender Information Value Date Recorded Sex Assigned at Female 12/05/2021 10:36 AM EDT Legal Sex Female 10:36 AM EDT Gender Identity Female 12/05/2021 10:36 AM EDT Sexual Orientation Don't know 12/05/2021 10 :36 AM EDT Last Filed Vital Signs Vital Sign Reading Time Taken Comments Blood Pressure 133/77 05/19/2024 10:31 AM EDT Pulse 99 05/19/2024 10:31 AM EDT Temperature 35.8 ??C (96.4 ??F) 05/19/2024 10:31 AM E DT Respiratory Rate 16 01/24/2024 1:14 PM EST Oxygen Saturation 98% 05/19/2024 10:31 AM EDT Inhaled Oxygen Concentration - - Weight 48.6 kg (107 lb 4 oz) 05/19/2024 10:31 AM EDT Height 149.9 cm (4' 11 ) 05/19/2024 10:31 AM EDT Body Mass Index 21.66 05/19/2024 10:31 AM EDT Plan of Treatment Upcoming Encounters Date Type Department Care Team (Late st Contact Info) Description 09/08/2024 1:30 PM EDT Office Visit [facility] [address] [place] [address] Jeremy Granado MD [address] [place] [address] Health Maintenance Due Date Last Done Comments CT Colonography 1955 Colonoscopy 1955 Colorectal Cancer Screening 1955 FIT DNA/Cologuard 1955 FIT 1955 FOBT 1955 Sigmoidoscopy 1955 Derm Melanoma Skin Check 04/11/1954 Alcohol/Substance Use Screening 1965 Dental Oral Exam 11/20/2020 05/20/2020 Pneumococcal Vaccine: 50+ Years (2 of 2 - PPSV23) 02/11/2021 02/12/2020 Depression Screening 02/07/2023 02/07/2022, 02/07/19 SDOH Screening 02/07/2023 02/07/2022 Dental X-Ray: Full Mouth 05/01/2023 04/29/2020 Dental Prophylaxis 05/03/2023 11/01/2022, 0 06/30/2021, 10/14/2020, Additional history exists COVID-19 Vaccine ( season) 2023 02/13/2022, 09/06/2021, 01/27/2021, Additional history exists Dental X-Ray: Bitewings 11/03/2023 11/02/19 23, 06/30/2021, 05/20/2020 Mammogram 07/17/2024 07/18/2023, 06/0 07/2022, 07/11/2022, Additional history exists Tobacco Screening 05/19/2025 05/19/2024 RSV Patients and Patients Aged 60 years or older (1 - 1-dose 75+ series) 2028 DTaP/Tdap/Td Vaccines (2 - Td or Tdap) 02/11/2030 02/12/2020 Hepatitis B Vaccines Completed 06/03/2020, 03/12/2020, 02/12/2020 Zoster Vaccines Completed 10/05/2020, 08/04/2020 Hepatitis C Screening Completed 06/27/2022, 020 Influenza Vaccine Completed 04/02/2024, , 10/13/2021, Additional history exists HIB Vaccines Aged Out No longer eligi ble based on patient's age to complete this topic HPV Vaccines Aged Out No longer eligi ble based on patient's age to complete this topic Hepatitis A Vaccines Aged Out No long er eligible based on patient's age to complete this topic IPV Vaccines Aged Out No longer eligi ble based on patient's age to complete this topic Meningococcal B Vaccine Aged Out No l onger eligible based on patient's age to complete this topic Meningococcal Vaccine Aged Out No delta zayra eligible based on patient's age to complete this topic RSV under 20 months Aged Out No longe r eligible based on patient's age to complete this topic Rotavirus Vaccines Aged Out No longer eligible based on patient's age to complete this topic Procedures Procedure Name Priority Date/Time Associated Diagnosis Comments POCT URINALYSIS DIPSTICK Routine 05/19/2024 10:49 AM EDT Low back pain with radiation BI MAMMOGRAM SCREENING TOMOSYNTHESIS BILATERAL Routine 07/18/2023 2:45 PM EDT PROPHYLAXIS - ADULT Routine 11/01/2022 1 1:00 AM EDT BITEWINGS - 3 RADIOGRAPHIC IMAGES Routine 11/01/2022 11:00 AM EDT HEPATITIS PANEL, GENERAL Routine 06/27/2022 9:53 AM EDT PERIODIC ORAL EVALUATION - ESTABLISHED PATIENT Routine 05/20/2020 12:00 AM EDT PANORAMIC RADIOGRAPHIC IMAGE Routine 04/29/2020 12:00 AM EDT from Last 3 Months or Most Recently Relevant to Health Maintenance Results * POCT Urinalysis (05/19/2024 10:49 AM EDT) Color, UA Yellow Clarity, UA Clear Glucose, UA Negative Bilirubin, UA Negative Ketones, UA Negative Spec Grav, UA 1.015 Blood, UA Negative Negative, None Detected pH, UA 5.5 Protein, UA Negative Urobilinogen, UA 0.2 Leukocytes, UA Negative Negative, Rare, Trace Nitrite, UA Negative Negative, None Detected Appearance, UA clear QC Media Lot # [id number] Lot# Expiration Date 82 Urine 05/19/2024 10:4 9 AM EDT us Jeremy Granado MD POINT OF CARE TEST ENTER /EDIT ORDERABLES Final Result * BI Mammogram Screening Tomosynthesis Bilateral (07/18/2023 2:45 PM EDT) Anatomical Region Laterality Modality Breast Bilateral Mammography 07/18/2023 2:45 PM EDT Narrative 08/17/2023 8:47 AM EDT ? [facility] [place] ? [address] ?[place], [place] [address] ? Mammography Report ? Signed ? Patient: Deon Negrete,Nicolasa ?MR#: ?? [id number] ? : 1955 ?Acct:[id number] ? Age/Sex: 67 / F ?ADM Date: 07/18/23 ? Loc: HO.MAMMO ? Attending Dr: Juan Jose Castañeda FUDGE CANDY MAKER ? Ordering Physician: JUAN JOSE CASTAÑEDA NP ?Results: 1Negative ? Date of Service: 07/18/23 ?Follow Up: 1 Year From Orig ?? inal Mammogram ? Procedure(s): MM tomosynthesis screening BI ?? Accession Number(s): [id number] ? cc: GARRY,JUAN JOSE KITTY ? EXAMINATION: ?? MM SCREENING DIGITAL BREAST TOMOSYNTHESIS, BILATERAL ? CLINICAL INFORMATION: ? Screening. Asymptomatic. ? COMPARISON: ?? Mammography: This study is compared with prior exams dating back to ?? 2020. ? TECHNIQUE: ?? Digital breast tomosynthesis is performed in both the craniocaudal and ?? mediolateral oblique views along with computer-aided detection (CAD). ?? Synthesized 2D images are generated from the tomosynthesis. ? FINDINGS: ?? There are scattered areas of fibroglandular density (ACR BI-RADS breast ?? composition Category b). ? There are no significant masses, abnormal calcifications, or other ?? abnormalities. ? MM/MM tomosynthesis screening BI ?? IMPRESSION: ?? No mammographic evidence of malignancy. ? ASSESSMENT: ? BI-RADS BI-RADS 1 - Negative ? RECOMMENDATION: ?? Routine annual mammography screening. ? 1 year F/U ? This examination should not preclude the clinical evaluation of a ?? suspicious palpable abnormality. ? This patient's information was entered into a reminder system with a ?? target due date for their next mammogram. ? Dictated By: ?Tatyana Bermudez MD ? Signed By: ?<Electronically signed by Tatyana Bermudez MD in OV> ? 08/17/23 0843 ? DD/ 1445 ? TD/TT: ? Assistant Men'S Lacrosse Coach: ? Procedure Note Chuck Henderson - 08/17/2023 [facility] [address] [place] [address] [address]. [place], [place] [address] Mammography Report Signed Patient: Nicolasa Reich#: [id number] : 4Acct:[id number] Age/Sex: 67 / FADM Date: 07/18/23 Loc: [facility] Attending Dr: Juan Jose Castañeda FUDGE CANDY MAKER Ordering Physician: JUAN JOSE CASTAÑEDAults: 1Negative Date of Service: 07/18/23Follow Up: 1 Year From Orig inal Mammogram Procedure(s): MM tomosynthesis screening BI Accession Number(s): [id number] cc: JUAN JOSE CASTAÑEDA NP EXAMINATION: MM SCREENING DIGITAL BREAST TOMOSYNTHESIS, BILATERAL CLINICAL INFORMATION: Screening. Asymptomatic. COMPARISON: Mammography: This study is compared with prior exams dating back to 2020. TECHNIQUE: Digital breast tomosynthesis is performed in both the craniocaudal and mediolateral oblique views along with computer-aided detection (CAD). Synthesized 2D images are generated from the tomosynthesis. FINDINGS: There are scattered areas of fibroglandular density (ACR BI-RADS breast composition Category b). There are no significant masses, abnormal calcifications, or other abnormalities. MM/MM tomosynthesis screening BI IMPRESSION: No mammographic evidence of malignancy. ASSESSMENT: BI-RADS BI-RADS 1 - Negative RECOMMENDATION: Routine annual mammography screening. 1 year F/U This examination should not preclude the clinical evaluation of a suspicious palpable abnormality. This patient's information was entered into a reminder system with a target due date for their next mammogram. Dictated By: Tatyana Bermudez MD Signed By: <Electronically signed by Tatyana Bermudez MD in OV> 08/17/23 0843 DD/ 1445 TD/TT: Assistant Men'S Lacrosse Coach: Juan Jose Castañeda ANP IMG BI PROCEDURES Final Result * Hepatitis Panel, General (06/27/2022 9:53 AM EDT) Hepatitis A IgM Nonreactive Nonreactive [facility] Comment:IgM antibodies to IBRAHIM V not detected; does not exclude earlyacute or recovered HAV infection. ~Hepatitis B Surface Antibody REACTIVE Nonreactive [facility] Comment:REACTIVE: > 11.99 mI U/mL Hepatitis B Core Antibody Nonreactive Nonreactive [facility] Hepatitis C Antibody Nonreactive Nonreactive [facility] Comment:Antibodies to HCV no t detected; does not exclude early acuteHCV infection. Hepatitis B Surface Ag Negative Negative [facility] 06/27/2022 9:53 AM EDT 06/27/2022 9:53 AM EDT [facility] External Provider LAB BLO OD ORDERABLES Final Result [facility] [address] [place] [address] [phone] from Last 3 Months or Most Recently Relevant to Health Maintenance Insurance [place] [facility] DUAL COMPLETE DENTAL[place] AD[place] Care Teams Contracting Support Specialist Relationship Specialty Start Date End Date Juan Jose Castañeda ANP [address] [place] [address] PCP - General Family Medicine 01/23/20
--- OUTSIDE RECORDS SUMMARY | 2024-06-20 13:04 | XMS_ITS | Encounter Summary ---
Author Organization [employer] Address [address] [facility] 7[address] [place] [address] Care Team Providers Care Implement Mechanic Name Role Phone Rosanne Ayala AARON Primary Care Provider [phone] Reason for Visit * Reason Onset Date Comments Extraction 11/03/2022 Encounter Details Date Type Department Care Team ([facility] st Contact Info) Description 11/03/2022 Telephone [facility] [address] [place] [address] Bro Horne DDS [address] [place] [address] Extraction Social History Tobacco Use Types Packs/Day Years Used Date Smoking Tobacco: Never Passive Smoke Exposure: Never Smokeless Tobacco: Never Alcohol Use Standard Drinks/Week Comments Never 0 (1 standard drink = 0.6 oz pur e alcohol) PHQ-2 Answer Date Recorded Patient Health Questionnaire-2 Score 0 02/07/2022 Depression Answer Date Recorded Patient Health Questionnaire-2 Score 0 02/07/2022 Comments Unknown Sex and Gender Information Value Date Recorded Sex Assigned at Female 12/05/2021 10:36 AM EDT Legal Sex Female 10:36 AM EDT Gender Identity Female 12/05/2021 10:36 AM EDT Sexual Orientation Don't know 12/05/2021 10 :36 AM EDT documented as of this encounter Miscellaneous Notes * Telephone Encounter - Moris Negron DMD - 11/06/2022 8:05 AM EDT Please schedule appointment for extraction with Dr. Horne. Thanks * Telephone Encounter - Mere Ashby - 11/03/2022 1:39 PM EDT Patient was seen on 10/20 and noted possible extraction needed on tooth but patient did not want tohave tooth extracted. Patient is now ready for extraction . It is not treatment planned. Does she heed to see Oral surgeon or can Dr. Horne do it? documented in this encounter Plan of Treatment Upcoming Encounters Date Type Department Care Team (Late st Contact Info) Description 09/08/2024 1:30 PM EDT Office Visit [facility] [address] [place] [address] Lilian Granado MD [address] [place], [place] [phone] documented as of this encounter Visit Diagnoses Not on filedocumented in this encounter Care Teams Implement Mechanic Relationship Specialty Start Date End Date Rosanne Ayala ANP [address] [place] [id number] PCP - General Family Medicine 01/23/20 documented as of this encounter
--- OUTSIDE RECORDS SUMMARY | 2024-06-20 13:04 | XMS_ITS | Encounter Summary ---
Author Organization [employer] Address [address] [facility] [address] [place] [address] Care Team Providers Care Print Press Operator Name Role Phone Rosanne Ayala AARON Primary Care Provider [phone] Encounter Details Date Type Department Care Team ([facility] Contact Info) Description 09/06/2022 Orders Only [facility] [address] [place], [place] [phone] Mary Gilman LPN Social History Tobacco Use Types Packs/Day Years [...] Don't know 12/05/2021 10 :36 AM EDT COVID-19 Exposure Response Date Recorded In the last 10 days, have yo u been in contact with someone who was confirmed or suspected to have Coronavirus/COVID-19? No / Unsure 08/14/2022 2:49 PM EDT documented as of this encounter Plan of Treatment Upcoming Encounters Date Type Department Care Team ([facility] Contact Info) Description 09/08/2024 1:30 PM EDT Office Visit [facility] [address] [place], [place] [phone] Lilian Granado MD [address] [place], [place] [phone] documented as of this encounter Visit Diagnoses Not on filedocumented in this encounter Care Teams Print Press Operator Relationship Specialty Start Date End Date Rosanne Ayala ANP [address] [place] [address] PCP - General Family Medicine 01/23/20 documented as of this encounter
--- OUTSIDE RECORDS SUMMARY | 2024-06-20 13:04 | XMS_ITS | Encounter Summary ---
Author Organization [employer] Address [address] [facility] [address] [place] [address] Care Team Providers Care Char Filter Operator Name Role Phone Rosanne Ayala Primary Care Provider [phone] Encounter Details Date Type Department Care Team (Latest Contact Info) Description 05/20/2020 Abstract [facility] Dental, Provider, DDS Social History Tobacco Use Types Packs/Day Years Used Date Smoking Tobacco: Never Assessed Comments Unknown Sex and Gender Information Value Date Recorded Sex Assigned at Female 12/05/2021 10:36 AM EDT Legal Sex Female 10:36 AM EDT Gender Identity Female 12/05/2021 10:36 AM EDT Sexual Orientation Don't know 12/05/2021 10 :36 AM EDT documented as of this encounter Plan of Treatment Upcoming Encounters Date Type Department Care Team (Late st Contact Info) Description 09/08/2024 1:30 PM EDT Office Visit [facility] [address] [place] [address] Lilian Granado MD [address] [place] [address] documented as of this encounter Visit Diagnoses Not on filedocumented in this encounter Care Teams Char Filter Operator Relationship Specialty Start Date End Date Rosanne Ayala ANP [address] [place] [address] PCP - General Family Medicine 01/23/20 documented as of this encounter
--- OUTSIDE RECORDS SUMMARY | 2024-06-20 13:04 | XMS_ITS | Encounter Summary ---
Author Organization [employer] Address [address] [facility] [address] [place] [address] Care Team Providers Care Animal Shelter Clerk Name Role Phone Rosanne Ayala Primary Care Provider [phone] Encounter Details Date Type Department Care Team (Latest Contact Info) Description 06/30/2021 Abstract [facility] CONVERSIONS Dental, Provider, DDS Social History Tobacco [...] Description 09/08/2024 1:30 PM EDT Office Visit [facility] [address] [place] [address] Lilian Granado MD [address] [place] [address] documented as of this encounter Visit Diagnoses Not on filedocumented in this encounter Care Teams Animal Shelter Clerk Relationship Specialty Start Date End Date Rosanne Ayala ANP [address] [place] [address] PCP - General Family Medicine 01/23/20 documented as of this encounter
--- OUTSIDE RECORDS SUMMARY | 2024-06-20 13:04 | XMS_ITS | Encounter Summary ---
Author Organization [employer] Address [address] 7t [place] [address] Care Team Providers Care Life Insurance Sales Name Role Phone Rosanne Ayala AARON Primary Care Provider [phone] Encounter Details Date Type Department Care Team (Late st Contact Info) Description 01/23/2023 Telephone [facility] ADULT D[facility]AL [address] [place], [place] [phone] Bro Horne DDS [address] [place] [address] Social History Tobacco Use Types Packs/Day Years [...] encounter Miscellaneous Notes * Telephone Encounter - Marizol Pelletier - 01/23/2023 8:06 AM EST Patient had a bad experience with dr messer She would like to get a call and would like dr harrison documented in this encounter Plan of Treatment Upcoming Encounters Date Type Department Care Team (Late st Contact Info) Description 09/08/2024 1:30 PM EDT Office Visit [facility] [address] [place], [place] [phone] Lilian Granado MD [address] [place] [address] documented as of this encounter Visit Diagnoses Not on filedocumented in this encounter Care Teams Life Insurance Sales Relationship Specialty Start Date End Date Rosanne Ayala ANP [address] [place] [address] PCP - General Family Medicine 01/23/20 documented as of this encounter
--- OUTSIDE RECORDS SUMMARY | 2024-06-20 13:04 | XMS_ITS | Encounter Summary ---
Author Organization [employer] Address [address] [facility] 7t [place] [address] Care Team Providers Care Auditor Medical Claims Name Role Phone Rosanne Ayala AARON Primary Care Provider [phone] Reason for Visit * Reason Onset Date Comments appt with Dr. Negron 11/27/2022 Encounter Details Date Type Department Care Team ([facility] Contact Info) Description 11/27/2022 Telephone [facility] ADULT DENTAL [address] [place], [place] [phone] Moris Negron, DMD [address] [place] [address] Negron Social History Tobacco Use Types Packs/Day Years [...] encounter Miscellaneous Notes * Telephone Encounter - Mere Isma - 11/27/2022 4:04 PM EDT Patient called in stating that her appt should have been scheduled with Dr. Negron and not DR. Horne.She would like to be scheduled with Migdalia. Unsure as to why the change was made. Pls contact patient documented in this encounter Plan of Treatment Upcoming Encounters Date Type Department Care Team (Late st Contact Info) Description 09/08/2024 1:30 PM EDT Office Visit [facility] MEDICINE [address] [place], [place] [phone] Lilian Granado MD [address] [place] [address] documented as of this encounter Visit Diagnoses Not on filedocumented in this encounter Care Teams Auditor Medical Claims Relationship Specialty Start Date End Date Rosanne Ayala ANP [address] [place] [address] PCP - General Family Medicine 01/23/20 documented as of this encounter
== END 2024-06-20 13:03 | disposition home or self-care (01) ==
LOC: HO.US 13:02
PROVIDERS: PCP Nurse Practitioner Primary Care; Visit Provider Internal Medicine
DX: M54.50 Low back pain, unspecified (principal)
CPT/HCPCS: 76775

== ENCOUNTER → 2024-06-20 13:04 | Outpatient (BNV) | payer OTHER, SELFPAY | PROVIDERS: PCP Nurse Practitioner Primary Care; Visit Provider Specialist | DX: M54.6 Pain in thoracic spine (principal) | CPT/HCPCS: 76775 ==

== ENCOUNTER 2024-07-21 14:50 | Outpatient (REF) | payer OTHER, SELFPAY ==
--- OUTSIDE RECORDS SUMMARY | 2024-07-21 16:35 | XMS_ITS | Clinical Summary ---
Author Organization [employer] Address [address] [facility] 7t [place] [address] Care Team Providers Care Junior Business Analyst Name Role Phone Juan Jose Castañeda AARON Primary Care Provider [phone] Allergies Active Allergy Reactions Criticality Noted Date [...] mouth 2 times daily. 14 tablet 11/28/19 Active acetaminophen (Tylenol) 500 MG tablet Take 2 tablets (1,000 mg) by mouth every 6 (six) hours if needed for moderate pain or fever for up to 25 doses. 50 tablet 11/28/19 Active cetirizine (ZyrTEC) 10 MG tabletIndicati ons:Multiple allergies TAKE 1 TABLET BY MOUTH ONCE DAILY NEEDED FOR ALLERGIES. USE SPARINGLY. 90 tablet 1 12/28/19 Active clobetasol (Temovate) 0.05 % ointment APPLY TO THE AFFECTED AREA(S) TWICE A WEEK NEEDED. Had burning with betamethasone 30 g 1 01/24/20 Active Active Problems Problem Noted Date Diagnosed Date [...] (05/29/2022): Mild, 0-15% stenosis, follows w/ PA Chapis Sjogren's syndrome 05/12/2020 Assessment & Plan (08/01/2023 [...] Encounters Date Type Department Care Team Description 06/26/2024 Telephone [facility] [address] [place] [phone] Cyn Hartman RN Results 06/25/2024 Results Follow-Up [facility] [address] [place] [address] Jeremy Granado MD US RENAL BI 06/10/2024 Telephone [facility] [address] [place] [address] Juan Jose Castañeda ANP September05/19/2024 11:00 AM EDT Office Visit [facility] [address] [place] [address] Jeremy Granado MD Low back pain with radiation 05/06/2024 Telephone [facility] [address] [place], [place] [phone] Juan Jose Castañeda ANP [facility] ([employer] Premoistened, adult sized incont products.) 04/21/2024 Telephone [facility] [address] [place] [phone] Juan Jose Castañeda ANP Change PCP 04/21/2024 Telephone [facility] [address] [place], [place] [phone] Juan Jose Castañeda ANP MRI Results from Last 3 Months Immunizations Immunization Administration [...] Description 09/08/2024 1:30 PM EDT Office Visit [facility] [address] [place] [address] Jeremy Granado MD [address] [place] [address] Health Maintenance Due Date Last Done Comments [...] Procedure Name Priority Date/Time Associated Diagnosis Comments US RENAL BI Routine 06/21/2024 8:19 AM EDT Low back pain with radiation POCT URINALYSIS DIPSTICK Routine 05/19/2024 10:49 AM [...] Recently Relevant to Health Maintenance Results * US RENAL BI (06/21/2024 8:19 AM EDT) Anatomical Region Laterality Modality Abdomen Ultrasound 06/21/2024 8:19 AM EDT Narrative 06/21/2024 8:20 AM EDT ? [facility] ?[address] ?[place] [address] ? Ultrasound Report ? Signed ? Patient: Deon Negrete,Nicolasa ?MR#: ?? [id number] ? : 1955 ?Acct:[id number] ? Age/Sex: 68 / F ?ADM Date: 06/20/24 ? Loc: HO.US ? Attending Dr: Jeremy Granado MD ? Ordering Physician: Jeremy Granado MD ?? Date of Service: 06/20/24 ?? Procedure(s): US renal BI ?? Accession Number(s): [id number] ? cc: Jeremy Granado MD; JUAN JOSE CASTAÑEDA NP ? CLINICAL HISTORY: Rule out kidney stones mid back pain and Pos left CVAT ? US Renal ? Comparison: None ? Findings: ?? Right kidney normal size and echotexture, 9.6 cm length. ?? Left kidney normal size and echotexture, 10.4 cm length. ? Minimal hydronephrosis of right kidney. Normal color Doppler ? IMPRESSION: ?? 1. Minimal right hydronephrosis. ? This document has been electronically signed by: Javier Lal MD on ?? 06/21/2024 08:19:11 ? Dictated By: ?Javier Lal MD ? Signed By: ?<Electronically signed by Javier Lal MD in OV> ?06/21/24 0820 ? DD/ 8 ? TD/TT: 06/21/24818 ? Infection Control Manager: ? Procedure Note Beatriz, Image - 06/23/2024 [place] [address] Ultrasound Report Signed Patient: Nicolasa ReichMR#: [id number] : 4Acct:[id number] Age/Sex: 68 / FADM Date: 06/20/24 Loc: HO.US Attending Dr: Jeremy Granado MD Ordering Physician: Jeremy Granado MD Date of Service: 06/20/24 Procedure(s): US renal BI Accession Number(s): [id number] cc: Jeremy Granado MD; JUAN JOSE CASTAÑEDA NP CLINICAL HISTORY: Rule out kidney stones mid back pain and Pos left CVAT US Renal Comparison: None Findings: Right kidney normal size and echotexture, 9.6 cm length. Left kidney normal size and echotexture, 10.4 cm length. Minimal hydronephrosis of right kidney. Normal color Doppler IMPRESSION: 1. Minimal right hydronephrosis. This document has been electronically signed by: Javier Lal MD on 06/21/2024 08:19:11 Dictated By: Javier Lal MD Signed By: <Electronically signed by Javier Lal MD in OV> 06/21/24819 DD/ 8 TD/TT: 06/21/24818 Infection Control Manager: Jeremy Granado MD IMG US PROCEDURES Edited Result - Final * POCT Urinalysis (05/19/2024 10:49 AM EDT) [...] Media Lot # [id number] Lot# Expiration Date Urine 05/19/2024 10:4 9 AM EDT Jeremy Granado MD POINT OF CARE TEST ENTER /EDIT ORDERABLES Final Result * BI Mammogram Screening Tomosynthesis Bilateral (07/18/2023 2:45 PM EDT) Anatomical Region Laterality Modality Breast Bilateral Mammography 07/18/2023 2:45 PM EDT Narrative 08/17/2023 8:47 AM EDT ? [facility] [place] ? [address] ?[place] [address] ? Mammography Report ? Signed ? Patient: Deon Negrete,Nicolasa ?MR#: ?? [id number] ? : 1955 ?Acct:[id number] ? Age/Sex: 67 / F ?ADM Date: /12/24 ? Loc: HO.MAMMO ? Attending Dr: Juan Jose Castañeda WORK AND FAMILY LIFE CONSULTANT ? Ordering Physician: JUAN JOSE CASTAÑEDA NP ?Results: 1Negative ? Date of Service: 07/18/23 ?Follow Up: 1 Year From Orig ?? inal Mammogram ? Procedure(s): MM tomosynthesis screening BI ?? Accession Number(s): [id number] ? cc: JUAN JOSE CASTAÑEDA NP ? EXAMINATION: ?? MM SCREENING DIGITAL BREAST [...] 0843 ? DD/ 1445 ? TD/TT: ? Infection Control Manager: ? Procedure Note Beatriz, Chuck - 08/17/2023 [facility] [address] [place] [address] Mammography Report Signed Patient: Nicolasa ReichMR#: [id number] : 1955cct:[id number] Age/Sex: 67 / FADM Date: 07/18/23 Loc: NICK Attending Dr: Juan Jose Castañeda NP Ordering Physician: JUAN JOSE CASTAÑEDAesults: 1Negative Date of Service: 07/18/23Follow Up: 1 Year From Orig inal Mammogram Procedure(s): MM tomosynthesis screening BI Accession Number(s): [id number] cc: JUAN JOSE CASTAÑEDA NP EXAMINATION: MM [...] in OV> 08/17/23 0843 DD/ 1445 TD/TT: Infection Control Manager: Juan Jose Lucy ANP IMG BI PROCEDURES Final Result * Hepatitis Panel, General (06/27/2022 9:53 AM EDT) Hepatitis A IgM Nonreactive Nonreactive [facility] Comment:IgM antibodies to IBRAHIM V not detected; does not exclude earlyacute or recovered HAV infection. ~Hepatitis B Surface Antibody REACTIVE Nonreactive [facility] Comment:REACTIVE: > 11.99 mI U/mL Hepatitis B Core Antibody Nonreactive Nonreactive [facility] Hepatitis C Antibody Nonreactive Nonreactive [facility] Comment:Antibodies to HCV no t detected; does not exclude early acuteHCV infection. Hepatitis B Surface Ag Negative Negative [facility] 06/27/2022 9:53 AM EDT 06/27/2022 9:53 AM EDT [facility] External Provider LAB BLO OD ORDERABLES Final Result Performing Organization Address City/State/[facility] Co de Phone Number [facility] [address] [place] [phone] from Last 3 Months or Most Recently Relevant to Health Maintenance [place] [address] [place] [address] STANDARD MEDICARE [facility] DUAL COMPLETE D[place]AL[place] STAND ADULT Care Teams Junior Business Analyst Relationship Specialty Start Date End Date Juan Jose Castañeda ANP [address] [place] [address] PCP - General Family Medicine 01/23/20
== END 2024-07-21 14:51 | disposition home or self-care (01) ==
LOC: HO.MAMMO 14:50
PROVIDERS: PCP Internal Medicine; Visit Provider Nurse Practitioner Primary Care
DX: Z12.31 Encounter for screening mammogram for malignant neoplasm of breast (principal)
CPT/HCPCS: 77063; 77067

== ENCOUNTER → 2024-07-21 15:00 | Outpatient (BNV) | payer OTHER, SELFPAY | PROVIDERS: PCP Internal Medicine; Visit Provider Internal Medicine | DX: Z12.31 Encounter for screening mammogram for malignant neoplasm of breast (principal) | CPT/HCPCS: 77063; 77067 ==

== ENCOUNTER 2024-11-04 09:48 | Outpatient (REF) | payer OTHER, SELFPAY ==
--- OUTSIDE RECORDS SUMMARY | 2024-11-04 10:39 | XMS_ITS | Clinical Summary ---
Author Organization [employer] Address [address] [facility] 7t [place] [address] Care Team Providers Care Patternmaker All Around Name Role Phone Jeremy Granado MD Primary Care Provider + Allergies Active Allergy Reactions Criticality Noted Date Comments Brassica Oleracea 04/20/2021 Clindamycin 05/20/2020 Spinach 04/20/2021 Medications Calcium Carbonate (CALCI-MIX PO) 0 Refills, Maintenance, 06/06/21 12:11:00 EDT, Partial fill upon patient request if the prescription is for a schedule II opioid drug. 06/07/19 22 Active levothyroxine (Synthroid) 50 MCG tablet take [...] if needed each day. 06/07/19 22 Active acetaminophen (Tylenol) 500 MG tablet Take [...] burning with betamethasone 30 g 1 01/24/20 24 Active ibuprofen 600 MG tablet Take 1 tablet (600 mg) by mouth every 8 (eight) hours if needed for mild pain or moderate pain. 60 tablet 09/09/19 25 025 Active Problems Problem Noted Date Diagnosed Date Lung nodule 09/08/2024 Overview (09/08/2024): CT scan chest 01/2024: 3 mm LLL nodule Assessment & Plan (09/08/2024 2:18 PM EDT): 3 mm on LLL, patient is low risk Will do follow-up CT scan in 1 year Advised to avoid smoking and secondhand smoking. PCV 20 today Cervical radiculopathy 09/08/2024 Assessment & Plan (09/08/2024 2:17 PM EDT): Continue ibuprofen as needed Recommended to contact puncture Follow-up with pain clinic, awaiting for epidural injection. Interphalangeal (joint), toe sprain, initial enc ounter 09/08/2024 Assessment & Plan (09/08/2024 2:17 PM EDT): Secondary to trauma, doubt she has a fracture. 2nd and 3rd toe were monika taped, patient to continue doing the daily for the next 2 or 3 weeks, reconsult as needed if symptoms do not improve after 3 weeks Acquired hypothyroidism 09/08/2024 Assessment & Plan (09/08/2024 2:16 PM EDT): She is clinically euthyroid, last labs on January [address] Torres. Continue levothyroxine 50 mg and follow-up with sustainability executive director. Low back pain with radiation 05/19/2024 Assessment [...] Chapis Sjogren's syndrome 05/12/2020 Assessment & Plan (09/08/2024 2:17 PM EDT): Mostly with eye compromise, partially improving with natural tears. Continue follow-up with eye care once per year, uses natural tears regularly. Assessment & Plan (08/01/2023 7:07 PM EDT): Sjogren syndrome -referred to Eye care today Osteoporosis 09/30/2019 Assessment & Plan (09/08/2024 2:19 PM EDT): On Fosamax + calcium + D Check PTH levels Follow-up with sustainability executive director Age-related osteoporosis wit dale current pathological fracture 09/29/2019 Overview (02/07/2022): Last [...] repeat thyroid function studies in a year. Assessment & Plan (09/08/2024 2:15 PM EDT): Last thyroid ultrasound in 2021 did not show any dominant nodules, there was no need for further follow-up according to endocrinology. Resolved Problems Problem Noted Date Diagnosed Date Resolved Date Preseptal cellulitis of left eye 08/01/2023 11/30/2023 Assessment & Plan (08/01/2023 7:07 PM EDT): Pt w symptoms and physical findings suggestive for preseptal cellulitis ,no alarming symptoms -augmentin BID x 7 days -eye lubricants -tylenol PRN -alarm signs and symptoms discussed w pt Encounters Date Type Department Care Team Description 09/08/2024 1:30 PM EDT Office Visit [facility] MEDICINE [address] [place] [phone] Jeremy Granado MD Sjogren's syndrome, with unspecified organ involvement (CMS/HCC) (Primary Dx); Acquired hypothyroidism; Interphalangeal (joint), toe sprain, initial encounter; Lung nodule; Thyroid nodule; Osteoporosis without current pathological fracture, unspecified osteoporosis type; Cervical radiculopathy 09/08/2024 Travel 09/05/2024 Telephone [facility] MEDIC[facility] [address] [place], [place] [phone] Jeremy Granado MD CHART PREP 09/01/2024 Patient Outreach [facility] [address] [place], [place] [phone] Juan Jose Castañeda ANP Pre-visit Planning (Pre visit planning unable to LVM ) from Last 3 Months Immunizations Immunization Administration Dates Next Due Hep B, adult 06/03/2020,03/12/2020,02/12/2020 Influenza High-dose Quadriva lent Preservative Free 10/13/2021,02/12/2020 Influenza injectable quadriv alent preservative free 01/15/2023,01/27/2021 Influenza, High Dose Seasona l, Preservative Free 04/02/2024 Pfizer Covid-19 Vaccine 12+ Bivalent 02/13/2022 Pneumococcal Conjugate PCV 13 02/12/2020 Pneumococcal Conjugate PCV 20 09/08/2024 Tdap 02/12/2020 Zoster, Recombinant 10/05/2020,08/04/2020 Family History [...] housing situation today? I have elsa espinoza 09/08/[address] you li ve. Do you have problems with any of the following? None of the above 09/08/2024 Food Insecurity Answer Date Recorded Within the past 12 months, y ou worried that your food would run out before you got money to buy more: Never True 2024 Within the past 12 months,th e food you bought just didn't last and you didn't have enough money to get more: Sometimes True 09/08/2024 Transportation Answer Date Recorded In the past 12 months, has l ack of transportation kept you from medical appts, meetings, work or from getting things needed for daily living? No 09/08/2024 Utilities Answer Date Recorded In the past 12 months, has t he electric, gas, oil or water company threatened to shut off services in your home? No 09/08/2024 Depression Answer Date Recorded Patient Health Questionnaire-2 Score 0 09/08/2024 Internet Access Answer Date Recorded Internet Access Q1 Yes 09/08/2024 Internet Access Q2 Not on file 09/08/2024 Comments No Sex and Gender Information Value Date Recorded Sex Assigned at Female 12/05/2021 10:36 AM EDT Legal Sex Female 10:36 AM EDT Gender Identity Female 12/05/2021 10:36 AM EDT Sexual Orientation Don't know 12/05/2021 10 :36 AM EDT Last Filed Vital Signs Vital Sign Reading Time Taken Comments Blood Pressure 138/62 09/08/2024 1:12 PM EDT Pulse 94 09/08/2024 1:12 PM EDT Temperature 36.1 C (97 F) 09/08/2024 1:12 PM EDT Respiratory Rate 18 09/08/2024 1:12 PM EDT Oxygen Saturation 98% 09/08/2024 1:12 PM EDT Inhaled Oxygen Concentration - - Weight 49.2 kg (108 lb 8 oz) 09/08/2024 1:12 PM EDT Height 149.9 cm (4' 11 ) 09/08/2024 1:12 PM EDT Body Mass Index 21.91 09/08/2024 1:12 PM EDT Plan of Treatment Upcoming Encounters Date Type Department Care Team (Late st Contact Info) Description 11/14/2024 9:00 AM EDT Office Visit [facility] MEDICINE [address] [place], [place] [phone] Jeremy Granado MD [address] [place] [address] 02/24/2025 2:00 PM EST Office Visit [facility] OPTOMETRY [address] [place] [address] Jyotsna Patel, OD [address] [place] [address] Health Maintenance Due Date Last Done Comments CT Colonography 1955 FIT DNA/Cologuard 1955 FIT 1955 FOBT 1955 Sigmoidoscopy 1955 Derm Melanoma Skin Check 04[birth year]11/1956 Dental Oral Exam 11/20/2020 05/20/2020 Dental X-Ray: Full Mouth 05/01/2023 04/29/2020 Dental Prophylaxis 05/03/2023 11/01/2022, 0 06/30/2021, 10/14/2020, Additional history exists Dental X-Ray: Bitewings 11/03/2023 11/02/19 23, 06/30/2021, 05/20/2020 COVID-19 Vaccine ( season) 2024 02/13/2022, 09/06/2021, 01/27/2021, Additional history exists Influenza Vaccine (#1) 2024 , 01/15/2023, 10/13/2021, Additional history exists Colonoscopy 04/16/2025 04/16/2020 Colorectal Cancer Screening 04/16/2025 Mammogram 07/21/2025 07/21/2024, 07/06, 07/11/2022, Additional history exists Alcohol/Substance Use Screening 09/08/2025 09/08/2024 Depression Screening 09/08/2025 09/08/2024, 09/09/19 25 SDOH Screening 09/08/2025 09/08/2024 Tobacco Screening 09/08/2025 09/08/2024 RSV Patients and Patients Aged 60 years or older (1 - 1-dose 75+ series) 2028 DTaP/Tdap/Td Vaccines (2 - Td or Tdap) 02/11/2030 02/12/2020 Hepatitis B Vaccines Completed 06/03/2020, 03/12/2020, 02/12/2020 Zoster Vaccines Completed 10/05/2020, 08/04/2020 Hepatitis C Screening Completed 06/27/2022, 020 Pneumococcal Vaccine: 50+ Years Completed 09/08/2024, 02/12/2020 HIB Vaccines Aged Out No longer eligi [...] Procedure Name Priority Date/Time Associated Diagnosis Comments BI MAMMOGRAM SCREENING TOMOSYNTHESIS BILATERAL Routine 07/21/2024 2:52 PM EDT PROPHYLAXIS - ADULT Routine 11/01/2022 1 1:00 AM EDT BITEWINGS - 3 RADIOGRAPHIC IMAGES Routine 11/01/2022 11:00 AM EDT HEPATITIS PANEL, GENERAL Routine 06/27/2022 9:53 AM EDT PERIODIC ORAL EVALUATION - ESTABLISHED PATIENT Routine 05/20/2020 12:00 AM EDT PANORAMIC RADIOGRAPHIC IMAGE Routine 04/29/2020 12:00 AM EDT HM COLONOSCOPY Routine 04/16/2020 from Last 3 Months or Most Recently Relevant to Health Maintenance Results * BI Mammogram Screening Tomosynthesis Bilateral (07/21/2024 2:52 PM EDT) Anatomical Region Laterality Modality Breast Bilateral Mammography 07/21/2024 2:52 PM EDT Narrative 07/27/2024 7:20 PM EDT [facility] [address] [place], [place] [id number] Mammography Report Signed Patient: Nicolasa Reich MR#: [id number] : 1955 Acct:[id number] Age/Sex: 68 / F ADM Date: 07/21/24 Loc: HO.MAMMO Attending Dr: Juan Jose Castañeda NP Ordering Physician: JUAN JOSE CASTAÑEDA NP Results: 1Negative Date of Service: 07/21/24 Follow Up: 1 Year From Orig inal Mammogram Procedure(s): MM tomosynthesis screening BI Accession Number(s): [id number] cc: Jeremy Granado MD; JUAN JOSE CASTAÑEDA NP EXAMINATION: MM SCREENING DIGITAL BREAST TOMOSYNTHESIS, BILATERAL CLINICAL INFORMATION: Screening. Asymptomatic. COMPARISON: Mammography: Comparison is made with available priors TECHNIQUE: Digital breast mammography with tomosynthesis is performed in both the craniocaudal and mediolateral oblique views along with computer-aided detection (CAD). FINDINGS: There are scattered areas of fibroglandular [...] target due date for their next mammogram. Electronically signed by: Anna Chowdhury DO 07/27/2024 07:17 PM EDT Dictated By: Anna Chowdhury DO Signed By: <Electronically signed by Anna Chowdhury DO in OV> 07/27/24 1917 DD/ 1452 TD/TT: 07/21/24 1512 Hat Marker: Procedure Note Donotuseinterpreter, Image - 07/27/2024 [facility] [address] [place] [address] [place] [address] Mammography Report Signed Patient: Nicolasa ReichMR#: [id number] : 1955cct:[id number] Age/Sex: 68 / FADM Date: 07/21/24 Loc: HO.MAMMO Attending Dr: Juan oJse Castañeda VISUAL BASIC DEVELOPER Ordering Physician: JUAN JOSE CASTAÑEDA NPResults: 1Negative Date of Service: 07/21/24Follow Up: 1 Year From Orig inal Mammogram Procedure(s): MM tomosynthesis screening BI Accession Number(s): [id number] cc: Jeremy Granado MD; JUAN JOSE CASTAÑEDA NP EXAMINATION: MM SCREENING DIGITAL BREAST TOMOSYNTHESIS, BILATERAL CLINICAL INFORMATION: Screening. Asymptomatic. COMPARISON: Mammography: Comparison is made with available priors TECHNIQUE: Digital breast mammography with tomosynthesis is performed in both the craniocaudal and mediolateral oblique views along with computer-aided detection (CAD). FINDINGS: There are scattered areas of fibroglandular [...] target due date for their next mammogram. Electronically signed by: Anna Chowdhury DO 07/27/2024 07:17 PM EDT Dictated By: Anna Chowdhury DO Signed By: <Electronically signed by Anna Chowdhury DO in OV> 07/27/24 1917 DD/ 1452 TD/TT: 07/21/24 1512 Hat Marker: Juan Jose Castañeda ANP IMG BI PROCEDURES Edited Result - Final * Hepatitis Panel, General (06/27/2022 9:53 AM EDT) Hepatitis A IgM Nonreactive Nonreactive [facility] Comment:IgM antibodies to IBRAHIM V not detected; does not exclude earlyacute or recovered HAV infection. ~Hepatitis B Surface Antibody REACTIVE Nonreactive [facility] Comment:REACTIVE: > 11.99 mI U/mL Hepatitis B Core Antibody Nonreactive Nonreactive [facility] Hepatitis C Antibody Nonreactive Nonreactive [facility] Comment:Antibodies to HCV no t detected; does not exclude early acuteHCV infection. Hepatitis B Surface Ag Negative Negative [facility] 06/27/2022 9:53 AM EDT 06/27/2022 9:53 AM EDT [facility] External Provider LAB BLO OD ORDERABLES Final Result [facility] [address] [place] [phone] * Hm Colonoscopy (04/16/2020) Colonoscopy Normal Normal Narrative Taya Vargas - 04/16/2020 See legacy note on 05/03/2020. Repeat in 5 years Historical Provider MD HEALTH MAINTENANCE Final Result from Last 3 Months or Most Recently Relevant to Health Maintenance Insurance [facility] STANDARD MEDICARE [facility] DUAL COMPLETE [place]AL[place] STAND ADULT Care Teams Patternmaker All Around Relationship Specialty Start Date End Date Jeremy Granado MD [address] [place] [phone] PCP - General Internal Medicine 09/08/24
--- OUTSIDE RECORDS SUMMARY | 2024-11-04 10:39 | XMS_ITS | Encounter Summary ---
Author Organization [employer] Address [address] [place] [address] Care Team Providers Care Mix Maker Name Role Phone Rosanne Ayala Primary Care Provider [phone] Rosanne Ayala Primary Care Provider [phone] Lilian Granado MD Primary Care Provider + Encounter Details Date Type Department Care Team ([facility] st Contact Info) Description 01/23/2023 Telephone [facility] ADULT DENTAL [address] [place], [place] [phone] Bro Horne DDS [address] [place], [place] [phone] Social History Tobacco Use Types Packs/Day Years [...] Description 11/14/2024 9:00 AM EDT Office Visit [facility] MEDICINE [address] [place] [address] Lilian Granado MD [address] [place] [address] 02/24/2025 2:00 PM EST Office Visit [facility] OPTOMETRY [address] [place] [address] Jyotsna Patel, OD [address] [place] [address] documented as of this encounter Visit Diagnoses Not on filedocumented in this encounter Care Teams Mix Maker Relationship Specialty Start Date End Date Rosanne Ayala ANP [address] [place] [address] PCP - General Family Medicine 01/23/20 09/04/24 Rosanne Ayala ANP [address] [place] [address] PCP - General Family Medicine 09/05/24 09/07/24 Lilian Granado MD [address] [place] [address] PCP - General Internal Medicine 09/08/24 documented as of this encounter
--- OUTSIDE RECORDS SUMMARY | 2024-11-04 10:39 | XMS_ITS ---
Author Name [employer] Yolanda Nuñez Address [address] [place] [address] Phone [phone] Organization [facility] Care Team Providers Care Operations Support Manager Name Role Phone Yolanda Montesinos Unavailable [phone] JANET COSTELLO Unavailable [phone] SADIA CRUZ Unavailable [phone] Reason for Referral Not Available Allergies, adverse reactions, alerts Allergen Type Reaction Severity Status Onset Date Clindamycin Allergy to substance (disorder) Unknown Active N/A Broccoli Extract Allergy to substance (disorder) Throat Tightness Unknown Active N/A spinach Allergy to substance (disorder) Throat Tightness Unknown Active N/A [place] Allergy to substance (disorder) Throat Tightness Unknown Active N/A History of medication use Medication Class Instructions Start Date End Date calcium 500 mg (as calcium carbonate 1,250 mg) tablet TAKE 1 TABLET BY MOUTH TWICE DAILY WITH MEALS 2023-05-22 No Data Available Olopatadine 0.1 % Solution INSTILL 1 LALO P IN EACH EYE TWICE DAILY 2024-03-04 No Data Available Alendronate Sodium 70 mg Tab take 1 tabl et by mouth once a week with 6 to 8 oz of water 30 min before first food of day. do not lie down for 30 minutes 2024-01-28 No Data Available Naproxen 500 mg Tab TAKE 1 TABLET BY SADIQ TWICE DAILY 2024-05-19 No Data Available Synthroid 50 MCG Tab TAKE 1 TABLET BY MO UT EVERY MORNING 2024-01-28 No Data Available Ibuprofen 600 mg Tab TAKE 1 TABLET BY MO UT EVERY 8 HOURS NEEDED FOR MILD OR MODERATE PAIN 2024-09-08 No Data Available Fish Oil 500 mg Cap 1 capsule daily 2024-09-16 No Da ta Available Vitamin C Tab Chewable 500mg po daily 2024-09-16 No Data Available NexIUM 20 mg Cap delayed rel 1 capsule orally daily pr n 2024-09-16 No Data Available Problem List Problem Status Onset Date Resolved Date Synopsis Age-related osteoporosis without current pathological fracture Active 2024-09-16 N/A Alendronat e and CalciumContinue to follow with PCP Sjogrens syndrome Active 2024-09-18 N/A Sjogren 's syndrome, with unspecified organ involvementFollows with PCP Lung nodule Active 2024-09-18 N/A Noted in Outs hermilo Care3 mm on LLL, patient is low riskFollow-up CT scan in 1 yearFollow up with PCP Major depressive disorder, recurrent, mild with anxiety Active 2024-09-18 N/A Continue to fo llow with PCP Other problems related to medical facilities and other health care Active 2024-09-18 N/A FALL CO NTINGENCY PLANMember to call for the following symptoms: Fall / Vertigo/ WeaknessPlanned intervention: Encourage extra fluid intake / Assess for change in mental status and provide reassurance if none (patient's Baseline is _) / Review importance of sitting for two to three minutes prior to standing after laying down Encounters Encounters Type Facility Date of Service Diagnosis/Co mplaint New patient 15-29min; 1 minor problem; add modifier 95 for video, modifier 93 for phone [facility]2024 Age-related osteoporosis without current pathological fractureSicca syndrome, unspecifiedSolitary pulmonary noduleMajor depressive disorder, recurrent, mildAnxiety disorder, unspecifiedOther problems related to medical facilities and other health care New patient 15-29min; 1 minor problem; add modifier 95 for video, modifier 93 for phone [facility] [place] 09[place]16/2024 New patient 15-29min; 1 minor problem; add modifier 95 for video, modifier 93 for phone [facility] [place] 09/16/2024 New patient 15-29min; 1 minor problem; add modifier 95 for video, modifier 93 for phone [facility] [place] 09/16/2024 New patient 15-29min; 1 minor problem; add modifier 95 for video, modifier 93 for phone [facility] [place] 09/16/2024 New patient 15-29min; 1 minor problem; add modifier 95 for video, modifier 93 for phone [facility] [place] 09/16/2024 New patient 15-29min; 1 minor problem; add modifier 95 for video, modifier 93 for phone [facility] [place]2024 New patient 15-29min; 1 minor problem; add modifier 95 for video, modifier 93 for phone [facility] [place] 09/16/2024 New patient 15-29min; 1 minor problem; add modifier 95 for video, modifier 93 for phone [facility] [place] 09/16/2024 Vital Signs Date of Collection Vitals 2024-09-16 11:45:29 Height - 149.86 cmWe ight - 48.53 kgBody Mass Index (BMI) - 21.61 kg/m2BP Diastolic - 62.0 mm[Hg]BP Systolic - 138.0 mm[Hg]Pain Scale - 2.0 {score} Social History Social History Social History Observation Description Effec tive Time Current Smoking Status Former smoker 2024-10-08 0 Sex Female History of Procedures Procedures Service Procedure code Service date Servicing provider Phone# New patient 15-29min; 1 minor problem; add modifier 95 for video, modifier 93 for phone [phone] No Data Available No Data Availa ble Medication List Documented (1159F) 1159F 2024-09-16 No Data Available No Data Fartun ilable Medication Review by prescribing provider or pharmacist documented (1160F) 1160F 2024-09-16 No Data Available No Data Fartun ilable Functional Status Assessed (1170F) 1170F 2024-09-16 No Data Available No Data Avail able Advance Care Directive Advance care planning discussion documented in the medical record (1158F) 1158F 2024-09-16 No Data Available No Data Availa ble Advance care planning discussed and documented advance care plan or surrogate decision-maker was documented in the medical record. (1123F) 1123F 2024-09-16 No Data Available No Data Availa ble Pain Assessment - Pain Documented on a Pain Scale (1125F) 1125F 2024-09-16 No Data Available No Data Fartun ilable SBP 130-139 (3075F) 3075F 2024-09-16 No Data Availabl e No Data Available DBP <80 (3078F) 3078F 2024-09-16 No Data Available No Data Available Functional Status Functional Category Effective Dates IADL: Medication Independent , Meal Prep Needs Assistance , Shopping Needs Assistance , Driving or Public Transport Needs Assistance , Housework Needs Assistance 2024-09-16 How many falls within the last 6 months? no 2024-09-16 Near falls within the last 6 months? no 2024-09-16 Do you feel unsteady on your feet? Yes 2 DME used with ambulation: Cane 2024-09-05 2 Do you worry about falling? Yes ADL: Bathing Needs Assistanc e , Dressing Needs Assistance , Eating Independent , Ambulation Needs Assistance , Transferring Independent and Toileting Independent 2024-09-16 Social Supports - # of Inter actions with Friends/Family in a typical week: daily 2024-09-16 Mental Status Status Date Cognition Status: Oriented to Person, Pl janelle and Time 2024-09-16 Assessments Date of Service Assessments 2024-09-16 11:45:29 Age-related osteopor osis without current pathological fractureSjogrens syndromeLung noduleMajor depressive disorder, recurrent, mild with anxietyOther problems related to medical facilities and other health care Plan of Care Date of Service Plans 2024-09-16 11:45:29 Medication Review by prescribing provider or pharmacist documented (1160F)Medication List Documented (1159F)Functional Status Assessed (1170F)Advance Care Directive Advance care planning discussion documented in the medical record (1158F)Advance care planning discussed and documented advance care plan or surrogate decision-maker was documented in the medical record. (1123F)SBP >= 140DBP <80 (3078F)New patient 15-29min; 1 minor problem; add modifier 95 for video, modifier 93 for phoneBMI obtained (3008F)Pain Assessment - Pain Documented on a Pain Scale (1125F)Continue to see PCP. Follow-up with [facility] as needed for any acute or disease education needs that may arise.Alendronate and CalciumContinue to follow with PCPSjogren's syndrome, with unspecified organ involvementFollows with PCPNoted in Outside Care3 mm on LLL, patient is low riskFollow-up CT scan in 1 yearFollow up with PCPContinue to follow with PCPFALL CONTINGENCY PLANMember to call for the following symptoms: Fall / Vertigo/ WeaknessPlanned intervention: Encourage extra fluid intake / Assess for change in mental status and provide reassurance if none (patient's Baseline is _) / Review importance of sitting for two to three minutes prior to standing after laying down Goals Date Goal 2024-09-16 Continue taking medi cations as directed and keep all follow up appointments with established PCP and Specialist. Health Concerns Date Concern 2024-09-16 Patient/Guardian agr eed to visit via telehealth. Informed verbal consent was obtained from this patient to communicate and provide care using virtual and other telecommunications tools. This patient has been explained the risks, if any, related to the encounter. I explained that care provided through video or audio communication cannot replace the need for physical examination or an in-person visit for some disorders or urgent problems. ntroductory visit with Adama to establish care. Today, patient as chief complaint of: establishing care.Visit completed via:[x] audio and video; [ ] audio only 2024-09-16 Concerns for today's visit: 2024-09-16 Concerns for today's visit: Denies any concerns 2024-09-16 Most recent hospital stay or ER visit: 2024-09-16 Most recent hospital stay or ER visit: no recent Ed or hospital visits
--- OUTSIDE RECORDS SUMMARY | 2024-11-04 10:39 | XMS_ITS | Encounter Summary ---
Author Organization [employer] Address [address] [facility] 7t [place] [address] Care Team Providers Care Salesperson Pets And Pet Supplies Name Role Phone Rosanne Ayala Primary Care Provider [phone] Rosanne Ayala Primary Care Provider Lilian Granado MD Primary Care Provider + Encounter Details Date Type Department Care Team ([facility] Contact Info) Description 09/06/2022 Orders Only [facility] CHC MED & PEDS [address] [place], [place] [phone] Mary Gilman LPN Social History Tobacco Use [...] Upcoming Encounters Date Type Department Care Team ([facility] Contact Info) Description 11/14/2024 9:00 AM EDT Office Visit [facility] MEDICINE [address] [place] [phone] Lilian Granado MD [address] [place] [address] 02/24/2025 2:00 PM EST Office Visit [facility] OPTOMETRY [address] [place], [place] [phone] Jyotsna Patel, OD [address] [place] [address] documented as of this encounter Visit Diagnoses Not on filedocumented in this encounter Care Teams Salesperson Pets And Pet Supplies Relationship Specialty Start Date End Date Rosanne Ayala ANP [address] [place] [address] PCP - General Family Medicine 01/23/20 09/04/24 Rosanne Ayala ANP [address] [place] [address] PCP - General Family Medicine 09/05/24 09/07/24 Lilian Granado MD [address] [place] [address] PCP - General Internal Medicine 09/08/24 documented as of this encounter
--- OUTSIDE RECORDS SUMMARY | 2024-11-04 10:39 | XMS_ITS | Encounter Summary ---
Author Organization [facility] Address [address] [facility] [address]t [place] [address] Care Team Providers Care Milk Runner Name Role Phone Rosanne Ayala Primary Care Provider [phone] Rosanne Ayala Primary Care Provider [phone] Lilian Granado MD Primary Care Provider + Encounter Details Date Type Department Care Team (Latest Contact Info) Description 05/20/2020 Abstract [facility] CONVERSIONS Dental, Provider, DDS Social History [...] Description 11/14/2024 9:00 AM EDT Office Visit [facility] MEDICINE [address] [place] [address] Lilian Granado MD [address] [place] [address] 02/24/2025 2:00 PM EST Office Visit [facility] OPTOMETRY [address] [place], [place] [phone] Jyotsna Patel, OD [address] [place] [address] documented as of this encounter Visit Diagnoses Not on filedocumented in this encounter Care Teams Milk Runner Relationship Specialty Start Date End Date Rosanne Ayala ANP [address] [place] [address] PCP - General Family Medicine 01/23/20 09/04/24 Rosanne Ayala ANP [address] [place] [address] PCP - General Family Medicine 09/05/24 09/07/24 Lilian Granado MD [address] [place] [address] PCP - General Internal Medicine 09/08/24 documented as of this encounter
--- OUTSIDE RECORDS SUMMARY | 2024-11-04 10:39 | XMS_ITS | Encounter Summary ---
Author Organization [employer] Address [address] [facility] 7t [place] [address] Care Team Providers Care Analysis Reporting Developer Name Role Phone Rosanne Ayala Primary Care Provider [phone] Rosanne Ayala Primary Care Provider [phone] Lilian Granado MD Primary Care Provider + Reason for Visit * Reason Onset Date Comments Extraction 11/03/2022 Encounter Details Date Type Department Care Team ([facility] st Contact Info) Description 11/03/2022 Telephone [facility] ADULT DENTAL [address] [place], [place] [phone] Bro Horne DDS [address] [place], [place] [phone] Extraction Social History Tobacco Use Types Packs/Day [...] Description 11/14/2024 9:00 AM EDT Office Visit [facility] MEDICINE [address] [place] [address] Lilian Granado MD [address] [place] [address] 02/24/2025 2:00 PM EST Office Visit [facility] OPTOMETRY [address] [place] [address] Tarka, Jyotsna, OD [address] [place] [address] documented as of this encounter Visit Diagnoses Not on filedocumented in this encounter Care Teams Analysis Reporting Developer Relationship Specialty Start Date End Date Rosanne Ayala ANP [address] [place] [address] PCP - General Family Medicine 01/23/20 09/04/24 Rosanne Ayala ANP [address] [place] [address] PCP - General Family Medicine 09/05/24 09/07/24 Lilian Granado MD [address] [place] [address] PCP - General Internal Medicine 09/08/24 documented as of this encounter
--- OUTSIDE RECORDS SUMMARY | 2024-11-04 10:39 | XMS_ITS | Encounter Summary ---
Author Organization [employer] Address [address] [facility] 7t [place] [address] Care Team Providers Care Grinder Set Up Operator Thread Tool Name Role Phone Rosanne Ayala Primary Care Provider [phone] Rosanne Ayala Primary Care Provider [phone] Lilian Granado MD Primary Care Provider + Reason for Visit * Reason Onset Date Comments appt with Dr. Negron 11/27/2022 Encounter Details Date Type Department Care Team ([facility] st Contact Info) Description 11/27/[address] [facility] ADULT DENTAL [address] [place] [address] Moris Negron, DMD [address] [place] [address] Negron Social History Tobacco Use Types Packs/Day Years Used Date Smoking Tobacco: Never Passive Smoke Exposure: Never Smokeless Tobacco: Never Alcohol Use Standard Drinks/Week Comments Never 0 (1 standard drink = 0.6 oz pur e alcohol) PHQ-2 Answer Date Recorded Patient Health Questionnaire-2 Score 0 02/07/2022 Housing Stability Answer Date Recorded What is your housing situation today? I have elsaelena espinoza 11/22/[address] you [...] Miscellaneous Notes * Telephone Encounter - Mere Ashby - 11/27/2022 4:04 PM EDT Patient called [...] Description 11/14/2024 9:00 AM EDT Office Visit [facility] MEDICINE [address] [place] [address] Lilian Granado MD [address] [place] [address] 02/24/2025 2:00 PM EST Office Visit [facility] OPTOMETRY [address] [place] [address] Jyotsna Patel OD [address] [place] [address] documented as of this encounter Visit Diagnoses Not on filedocumented in this encounter Care Teams Grinder Set Up Operator Thread Tool Relationship Specialty Start Date End Date Rosanne Ayala ANP [address] [place] [address] PCP - General Family Medicine 01/23/20 09/04/24 Rosanne Ayala ANP [address] [place] [address] PCP - General Family Medicine 09/05/24 09/07/24 Lilian Granado MD [address] [place] [address] PCP - General Internal Medicine 09/08/24 documented as of this encounter
--- OUTSIDE RECORDS SUMMARY | 2024-11-04 10:39 | XMS_ITS | Encounter Summary ---
Author Organization [facility] Address [address] [facility] [address] [place] [address] Care Team Providers Care Day Camp Counselor Name Role Phone Rosanne Ayala Primary Care Provider [phone] Rosanne Ayala Primary Care Provider Lilian Granado MD Primary Care Provider + Encounter Details Date Type Department Care Team (Latest Contact Info) Description 06/30/2021 Abstract [facility] CONVERSIONS Dental, Provider, DDS Social [...] Description 11/14/2024 9:00 AM EDT Office Visit [facility] MEDICINE [address] [place] [address] Lilian Granado MD [address] [place] [address] 02/24/2025 2:00 PM EST Office Visit [facility] OPTOMETRY [address] [place], [place] [phone] Jyotsna Patel, OD [address] [place] [address] documented as of this encounter Visit Diagnoses Not on filedocumented in this encounter Care Teams Day Camp Counselor Relationship Specialty Start Date End Date Rosanne Ayala ANP [address] [place] [address] PCP - General Family Medicine 01/23/20 09/04/24 Rosanne Ayala ANP [address] [place] [address] PCP - General Family Medicine 09/05/24 09/07/24 Lilian Granado MD [address] [place] [address] PCP - General Internal Medicine 09/08/24 documented as of this encounter
[2024-11-04 11:18] LABS: MANUAL DIFF FLAG NO
[2024-11-04 11:55] LABS: Hematocrit 34.5 % (37.0-47.0); Hemoglobin 11.6 g/dl (12.0-16.0); Imm Gran Abs Auto 0.02 X10*3/uL (0.00-0.03); Imm Gran Pct Auto 0.5 % (0.0-0.4); Lymphocytes Absolute Auto 1.1 X10*3/uL (1.2-4.9); Mean Corpuscular HGB Conc 33.6 g/dl (31.0-35.0); Mean Corpuscular Hemoglobin 27.8 pg (27.0-33.0); Mean Corpuscular Volume 82.5 fL (80.0-98.0); NRBC Abs Auto 0.000 X10*3/uL (0.0-0.012); NRBC Pct Auto 0.0 /100WBC (0.0-0.2); Platelet Count 259 X10*3/uL (160-400); Red Blood Count 4.18 X10*6/uL (4.20-5.50); White Blood Count 3.7 X10*3/uL (4.8-10.8)
[2024-11-04 11:56] LABS: Appearance Urine Clear; Glucose Urine UA Negative (Negative); PH 5.5 (5.0-9.0); Specific Gravity - Urine 1.010 (1.005-1.025)
[2024-11-04 12:02] LABS: Hematocrit 34.7 % (37.0-47.0); Hemoglobin 11.8 g/dl (12.0-16.0); Imm Gran Abs Auto 0.00 X10*3/uL (0.00-0.03); Imm Gran Pct Auto 0.0 % (0.0-0.4); Lymphocytes Absolute Auto 1.2 X10*3/uL (1.2-4.9); Mean Corpuscular HGB Conc 34.0 g/dl (31.0-35.0); Mean Corpuscular Hemoglobin 28.1 pg (27.0-33.0); Mean Corpuscular Volume 82.6 fL (80.0-98.0); NRBC Abs Auto 0.000 X10*3/uL (0.0-0.012); NRBC Pct Auto 0.0 /100WBC (0.0-0.2); Platelet Count 250 X10*3/uL (160-400); Red Blood Count 4.20 X10*6/uL (4.20-5.50); White Blood Count 3.8 X10*3/uL (4.8-10.8)
[2024-11-04 12:32] LABS: Alanine Aminotransferase 12 U/L (0-31); Albumin Level 4.6 g/dL (3.5-5.0); Alkaline Phosphatase 52 U/L (39-117); Anion Gap 10 (12-20); Aspartate Amino Transferase 22 U/L (5-31); Blood Urea Nitrogen 16 mg/dL (9-16); Calcium 9.5 mg/dL (8.4-10.2); Carbon Dioxide 29 mmol/L (22-29); Chloride 109 mmol/L (96-108); Cholesterol 201 mg/dL (<200); Estimated Glomerular Filt Rate > 60; HDL Cholesterol 55 mg/dL (>40); Potassium 3.6 mmol/L (3.3-5.1); Sodium 144 mmol/L (135-145); Total Protein 7.5 g/dL (6.5-8.0); Triglycerides 107 mg/dL (<150)
[2024-11-04 12:33] LABS: Alanine Aminotransferase 12 U/L (0-31); Albumin Level 4.6 g/dL (3.5-5.0); Alkaline Phosphatase 50 U/L (39-117); Anion Gap 11 (12-20); Aspartate Amino Transferase 22 U/L (5-31); Blood Urea Nitrogen 15 mg/dL (9-16); Calcium 9.5 mg/dL (8.4-10.2); Carbon Dioxide 29 mmol/L (22-29); Chloride 109 mmol/L (96-108); Estimated Glomerular Filt Rate > 60; Potassium 3.6 mmol/L (3.3-5.1); Sodium 145 mmol/L (135-145); Total Protein 7.4 g/dL (6.5-8.0)
[2024-11-04 12:36] LABS: Syphilis Screen Nonreactive (Nonreactive)
[2024-11-04 12:36] LABS: Total Protein Urine Random < 7 mg/dL (<12)
[2024-11-04 12:41] LABS: HBS Num1 20.80 mIU/mL (0-7.99); HBc Num1 0.74 S/CO (0.00-0.79); HBsAGNum1 0.37 S/CO (0.00-0.99); HIV Num 1 0.07 S/CO (0.00-0.99); Hepatitis A Antibody IgM 0.31 Index (0-0.79); Hepatitis B Surface Antigen Negative (Negative); ~HepC Num1 0.05 S/CO (0.00-0.79); ~Hepatitis A Antibody IgM Nonreactive (Nonreactive); ~Hepatitis B Surface Antibody REACTIVE (Nonreactive); ~Hepatitis C Antibody Nonreactive (Nonreactive)
[2024-11-04 12:42] LABS: Parathyroid Hormone Intact 52.6 pg/mL (8.7-77.1)
[2024-11-04 13:16] LABS: Reflex LDLD? No
[2024-11-05 21:02] LABS: Prot Elec - Albumin 4.3 g/dL (3.8-4.8); Prot Elec - Alpha1 0.3 g/dL (0.2-0.3); Prot Elec - Alpha2 0.9 g/dL (0.5-0.9); Prot Elec - Beta 1 0.5 g/dL (0.4-0.6); Prot Elec - Beta 2 0.4 g/dL (0.2-0.5); Prot Elec - Gamma 0.9 g/dL (0.8-1.7); Prot Elec - Total Protein 7.3 g/dL (6.1-8.1)
== END 2024-11-04 09:49 | disposition home or self-care (01) ==
LOC: HO.HHCL 09:48
PROVIDERS: Internal Medicine; Student in an Organized Health Care Education/Training Program; PCP Internal Medicine; Visit Provider Internal Medicine
DX: Z01.84 Encounter for antibody response examination (principal); Z11.4 Encounter for screening for human immunodeficiency virus [HIV]; M81.0 Age-related osteoporosis without current pathological fracture; M32.9 Systemic lupus erythematosus, unspecified; E04.1 Nontoxic single thyroid nodule; M35.00 Sjogren syndrome, unspecified; R91.1 Solitary pulmonary nodule; Z13.6 Encounter for screening for cardiovascular disorders
CPT/HCPCS: 36415; 80053; 80061; 81001; 82570; 82784; 83970; 84156; 84165; 85025; 85652; 86140; 86160; 86225; 86334; 86704; 86706; 86709; 86780; 86803; 87340; 87389

== ENCOUNTER → 2024-11-27 14:04 | Outpatient (REF) | payer OTHER, SELFPAY ==
--- NOTE | 2024-11-27 14:14 | CA_ITS ---
Transthoracic Echocardiogram Patient (Last, First, Middle): Nicolasa Reich, Gender: F Date of : 1955 Age: 69 Procedure Date: 11/27/2024 Procedure Type: Transthoracic Echocardiogram Location: OP Height: 154.94 cm Weight: 48.54 kg BSA: 1.45 m2 Heart Rate: 76 bpm BP: 125 / 72 mmHg Beading Installer: SB/RC Referring MD: Richy Ellis MD Paper Colorer: Pedro Buckner MD Symptoms: R06.02 - Shortness of breath Study Quality: Adequate ECG Rhythm: Sinus Conclusions: - Essentially normal study for her age Findings Left Ventricle Normal left ventricular size, thickness, and systolic function. The visually estimated ejection fraction is between 55-60%. Spectral Doppler is indicative of an impaired relaxation filling pattern. Right Ventricle Normal right ventricular cavity size and systolic function. Atria Both atria are normal in size. There is an interatrial septal aneurysm seen bowing to the right. Interatrial shunt cannot be excluded. Aortic Valve Normal aortic valve structure and function. There is no aortic valve stenosis. There is no aortic valve regurgitation. Mitral Valve Normal mitral valve structure and function. There is trace mitral valve regurgitation. There is no mitral valve stenosis. Pulmonic Valve The pulmonic valve is likely normal. Tricuspid Valve Normal tricuspid valve structure. There is trace tricuspid valve regurgitation. Tricuspid regurgitation envelope is inadequate for calculation of right ventricular systolic pressure. Normal right atrial pressure. Great Vessels All visible segments of the aorta are normal in size. The pulmonary artery was not well visualized. Venous The inferior vena cava is normal in size and collapses greater than 50% with inspiration. Pericardium/Pleural There is no evidence of pericardial effusion. Prior Study Comparison No significant change compared to prior study dated: 07/19/2022. Measurements 2D Linear Measurements IVSd: 0.61 0.6-0.9/0.6-1.0 cm LVIDd: 4.10 3.9-5.3/4.2-5.9 cm LVIDd Index: 2.83 2.4-3.2/2.2-3.1 cm/m2 LVIDs: 2.70 2.0-3.6 cm LVPWd: 0.66 0.7-1.1 cm LA Diam: 2.20 2.7-3.8/3.0-4.0 cm LAIDs Index: 1.52 1.5-2.3 cm/m2 LV Mass: 88.92 67-162/88-224 g LV Mass Index: 61.32 43-95/49-115 g/m2 LVOT Diam: 1.90 3.0+(-)1.3 cm 2D Systolic Function EF 4C: 57.70 >55% EF 2C: 58.70 >55% EF BiP: 57.20 >55% Mitral Valve MV Pk E: 0.78 MV PK A: 1.09 MV Decel Time: 136.00 E/A: 0.70 E'Lateral: 6.42 E'Medial: 5.44 E/E' Med: 14.40 E/E' Lat: 12.20 PHT: 40.00 MVA PHT: 5.50 Decel [place]: 5.77 Aortic Valve AoV Pk Thanh: 1.15 AoV Mn Thanh: 0.78 AoV VTI: 0.24 AoV Pk Grad: 5.00 Aov Mn Grad: 3.00 KATIE Cont.VTI: 2.18 LVOT LVOT Pk Thanh: 0.85 LVOT Mn Thanh: 0.57 LVOT VTI: 0.18 LVOT Pk Grad: 3.00 LVOT Mn Grad: 2.00 LVOT Diam: 1.90 LVOT Area: 2.84 Diastolic Function MV Pk E: 0.78 MV Pk A: 1.09 E/A: 0.70 E'Medial: 5.44 E/E' Med: 14.40 E' Laterial: 6.42 E/E' Lat: 12.20 Right Ventricle TAPSE (mm): 22.70 TVS' Thanh: 11.10 Tricuspid Valve RA Press: 3.00 Great Vessels Aorta Sinus of Valsalva: 2.40 2.0-3.5 cm Ao Asc: 2.80 2.1-3.4 cm Pulmonary Veins Pulm Vein S/D 1.30 Pulmonary Valve PV Pk Thanh: 0.83 Peak PV Grad: 3.00 Updated in Other Vendor System with Status of Final Pedro Buckner MD electronically signed on 11/27/2024 5:01:21 PM with status of Final
--- OUTSIDE RECORDS SUMMARY | 2024-11-27 17:53 | XMS_ITS ---
Author Name Liudmila VAZQUEZ, MRS. Chang Address [address] [place] [address] Phone [phone] [facility] Care Team Providers Care Senior Qa Engineer Name Role Phone Charlene Nur Unavailable [phone] JANET COSTELLO Unavailable [phone] SADIA CRUZ Unavailable [phone] Reason for Referral Not Available Allergies, adverse reactions, alerts Allergen Type Reaction Severity Status Onset Date Clindamycin Allergy to substance (disorder) Unknown Active N/A Broccoli Extract Allergy to substance (disorder) Throat Tightness Unknown Active N/A spinach Allergy to substance (disorder) Throat Tightness Unknown Active N/A Elizabeth Allergy to substance (disorder) Throat Tightness Unknown [...] 95 for video, modifier 93 for phone [facility] [place] 09/16/2024 Age-related osteoporosis [...] 95 for video, modifier 93 for phone [facility] [place] New patient 15-29min; 1 minor problem; add modifier 95 for video, modifier 93 for phone [facility]16[place]20[place] New patient 15-29min; 1 minor problem; add modifier 95 for video, modifier 93 for phone [facility] [place] 09/16/2024 Vital Signs Date of Collection Vitals 2024-09-16 11:45:29 Height - 149.86 cmWe ight - 48.53 kgBody Mass Index (BMI) - 21.61 kg/m2BP Diastolic - 62.0 mm[Hg]BP Systolic - 138.0 mm[Hg]Pain Scale - 2.0 {score} Social History Social History Social History Observation Description Effec tive Time Current Smoking Status Former smoker 2024-11-06 3 Sex Female History of Procedures Procedures Service Procedure code Service date Servicing provider Phone# New patient 15-29min; 1 minor problem; add modifier 95 for video, modifier 93 for phone [phone] No Data Available No Data Availa [...] disorders or urgent problems. ntroductory visit with [facility] to establish care. Today, patient as chief complaint of: establishing care.Visit completed via:[x] audio and video; [ ] audio only 2024-09-16 Concerns for today's visit: 2024-09-16 Concerns for today's visit: Denies any concerns 2024-09-16 Most recent hospital stay or ER visit: 2024-09-16 Most recent hospital stay or ER visit: no recent Ed or hospital visits
--- OUTSIDE RECORDS SUMMARY | 2024-11-27 17:54 | XMS_ITS | Clinical Summary ---
Author Organization [facility] Address [address] [place] [phone] Phone Care Team Providers Care Blocker Polishing Name Role Phone Brian Rodas MD Primary Care Provider + Allergies Active Allergy Reactions Criticality Noted Date Comments Broccoli Throat Tightness Medium 04/20/2021 Clindamycin 05/20/2020 Spinach Throat Tightness Medium 04/20/2021 Medications prednisoLONE acetate (PRED FORTE) 1 % ophthalmic suspension Place 1 % into each eye daily. 3 Active calcium carbonate (OS-KAYLIE) 1,250 mg (500 mg elemental) tabletIndications :Age-related osteoporosis without current pathological fracture take 1 tablet by mouth twice daily with meals 180 tablet 3 4 Active VITAMIN D3 50 mcg (2,000 unit) capsuleIndication s:Age-related osteoporosis without current pathological fracture TAKE 1 CAPSULE BY MOUTH EVERY DAY 30 capsule 4 Active SYNTHROID 50 mcg tabletIndications :Hypothyroidism, unspecified type Take 1 tablet (50 mcg total) by mouth every morning. 90 tablet 3 4 Active magnesium oxide 400 mg magnesium Tab Take 1 tablet by mouth daily. Active alendronate (FOSAMAX) 70 MG tabletIndications :Age-related osteoporosis without current pathological fracture Take 1 tablet (70 mg total) by mouth every 7 days. Take in the morning with a full glass of water, on an empty stomach, and do not take anything else by mouth or lie down for the next 30 min. 12 tablet 4 4 Active Active Problems Problem Noted Date Diagnosed Date Age-related osteoporosis wit hout current pathological fracture 09/29/2019 Assessment & Plan (01/28/2024 3:31 PM EST): The patient continues on calcium vitamin D supplement and alendronate. She had a significant improvement in bone mineral density of the lumbar spine with a combination of 1 year of Prolia and 1 year of alendronate. The hip and femoral neck remained stable. She should continue current regimen including calcium vitamin D and alendronate. She should do weightbearing exercises as tolerated. She should repeat lab work prior to the follow-up visit in 1 year. Assessment & Plan (10/03/2022 10:25 AM EDT): Continue calcium, vitamin D administration. The patient states that she developed adverse effects with the use of Prolia so we will discontinue this medication and she will take alendronate 70 mg weekly. She is due for repeat DXA scan 09/14/2023. I will request this study today. Assessment & Plan (09/28/2021 10:23 AM EDT): She had an improvement in her bone [...] Prolia injection today. Tolerated without adverse effects. Assessment & Plan (09/27/2020 1:49 PM EDT): The patient is doing well on alendronate. She is taking vitamin D supplementation 2000 units daily. Calcium release 500 mg once a day with food. But she needs to make sure she is getting at least another 700 mg of calcium in her diet on a daily basis. I have requested a comprehensive for the follow-up visit in a year and DEXA scan for 09/08/2021. She will follow in 1 years time. Assessment & Plan (09/29/2019 2:05 PM EDT): The patient has progressed to osteoporosis. She informs me that she was on Fosamax for 4 years and maybe she had osteoporosis in the past. I re-prescribe the medication she should continue calcium and vitamin D supplementation. Hypothyroidism 06/05/2019 Assessment & Plan (01/28/2024 3:32 PM EST): Chemically and clinically euthyroid continue levothyroxine 50 mcg daily repeat thyroid function studies prior to the follow-up visit in 1 year. Assessment & Plan (10/03/2022 10:18 AM EDT): Chemically and clinically euthyroid continue levothyroxine 50 mcg daily repeat thyroid function studies in 1 year. Assessment & Plan (09/28/2021 10:13 AM EDT): The patient is chemically and clinically euthyroid continue levothyroxine 50 mcg repeat thyroid function studies in a year. Assessment & Plan (09/27/2020 1:49 PM EDT): Chemically and clinically euthyroid on levothyroxine 50 mcg. I have renew the medication she should repeat thyroid function studies in 1 year. Assessment & Plan (09/29/2019 2:06 PM EDT): Patient is chemically and clinically euthyroid with generic levothyroxine but prefers Synthroid. She says that the generic have a powdery taste and prefers brand name I have prescribed the medication. Repeat thyroid function studies prior to the follow-up visit. Assessment & Plan (06/05/2019 2:42 PM EDT): Is a patient with a family history of hypothyroidism and other thyroid disorders such as thyroid goiters and Graves' disease. Questionable thyroid carcinoma it sounds very dubious to me based on what she is telling me. In any case she is chemically euthyroid with Synthroid 50 mcg based on thyroid function studies I would not make any changes. She does complain of fatigue and hair loss but I doubt that this is due to her thyroid condition. Vitamin D deficiency 06/05/2019 Assessment & Plan (09/29/2019 2:06 PM EDT): MND levels are now replete continue cholecalciferol. Assessment & Plan (06/05/2019 2:42 PM EDT): She has history of vitamin D deficiency requiring ergocalciferol but she should be on maintenance therapy with 2000 units of cholecalciferol daily because of her history of osteopenia and also the fact that she has been vitamin D deficient in the past Nontoxic multinodular goiter 06/05/2019 Assessment & Plan (10/03/2022 10:18 AM EDT): Subcentimeter nodules less than 5 mm no further work-up required this is not the etiology of the sensation she was experiencing. Assessment & Plan (09/28/2021 10:14 AM EDT): Subcentimeter nodules we will request ultrasound of thyroid gland because she is complaining of neck discomfort but I doubt that this is related to her thyroid gland. Description she is having difficulty with swallowing but not necessarily just a sensation in esophagus. Assessment & Plan (06/05/2019 2:43 PM EDT): Her thyroid gland is normal size. She has subcentimeter thyroid nodules that do not require biopsy and in my opinion they really do not require any follow-up the biggest nodule was 0.7 cm is been biopsied and found to be benign. In fact is quite difficult to biopsy a 0.7 cm nodule to be done even know if the cells were actually from the nodule itself but is a possibility that it was. In any case I do not recommend serial ultrasound monitoring. Family History Medical History Relation Comments Emphysema Father Hypercalcemia Father Alzheimer's disease Mother Thyroid disease Mother Relation Status Comments Father Mother Social History Tobacco Use Types Packs/Day Years Used Date Smoking Tobacco: Never Smokeless Tobacco: Never Tobacco Cessation:Counseling Given: Not Answered Alcohol Use Standard Drinks/Week Comments Not Currently 0 (1 standard drink = 0.6 oz pur e alcohol) Education Answer Date Recorded Are you interested in more education? Not on esmer e 06/02/2022 Are you concerned about learning? Not on file 06/02/2022 No 06/02/2022 No 06/02/2022 Digital Access Answer Date Recorded No 07/04/2022 No 07/04/2022 Reliable internet access at home? Not on file 07/04/2022 Device with a working camera? Not on file Comments Unknown Sex and Gender Information Value Date Recorded Sex Assigned at Not on file Legal Sex Female 10:04 AM EDT Gender Identity Not on file Sexual Orientation Not on file Last Filed Vital Signs Vital Sign Reading Time Taken Comments Blood Pressure 104/64 01/28/2024 3:28 PM EST Pulse 101 01/28/2024 3:28 PM EST Temperature 36.4 C (97.6 F) 10/03/2022 10:11 AM EDT Respiratory Rate - - Oxygen Saturation 98% 01/28/2024 3:28 PM EST Inhaled Oxygen Concentration - - Weight 47 kg (103 lb 9.6 oz) 01/28/2024 3:28 PM EST Height 150.5 cm (4' 11.25 ) 01/28/2024 3:[address] Body Mass Index 20.75 01/28/2024 3:28 PM EST Plan of Treatment Upcoming Encounters Date Type Department Care Team (Late st Contact Info) Description 01/26/2025 10:30 AM EST Office Visit [facility] [address] [place] [phone] Janet Torres DO [address] [place] [phone] [email or web address] Health Maintenance Due Date Last Done Comments LIPID PANEL 1953 DEPRESSION SCREENING 1965 HEPATITIS C SCREENING 10/13/1971 COLOGUARD 1998 COLONOSCOPY 1998 COLORECTAL CANCER SCREENING 1998 FIT TEST 1998 FOBT 1998 SIGMOIDOSCOPY 1998 VIRTUAL COLONOSCOPY 1998 PNEUMOCOCCAL VACCINES (50+ years) (1 of 1 - PCV) 10/13/2003 ZOSTER VACCINES (1 of 2) 10/13/2003 MAMMOGRAM 07/11/2024 07/11/2022, 07/11/2022 INFLUENZA VACCINE (#1) 2024 COVID-19 VACCINE (2 - 2024- season) 2024 04/08/2020 TSH LEVEL 01/17/2025 01/18/2024, 08/0 10/2021, 09/20/2020, Additional history exists RSV VACCINE (1 - 1-dose 75+ series) 2028 Adult Td,Tdap Booster 02/11/2030 02/12/2020 OSTEOPOROSIS SCREENING INITIAL (ONE-TIME) Completed 11/09/2023, 2021, 09/09/2019 SMOKING STATUS SCREENING (Once After 26 Yrs) Completed 01/28/2024 HEPATITIS A VACCINES Aged Out No long er eligible based on patient's age to complete this topic HIB VACCINES Aged Out No longer eligi ble based on patient's age to complete this topic MENINGOCOCCAL VACCINES (ACWY) Aged Out No longer eligible based on patient's age to complete this topic MENINGOCOCCAL VACCINES (B) Aged Out N o longer eligible based on patient's age to complete this topic Medical Devices Not on file Procedures Procedure Name Priority Date/Time Associated Diagnosis Comments TSH Routine 01/18/2024 10:57 AM EST Hypothyroidism, unspecified type BD DXA AXIAL (SPINE) WITH HIP Routine 11/09/2023 1:31 PM EDT Age-related osteoporosis without current pathological fracture from Last 3 Months or Most Recently Relevant to Health Maintenance Results * TSH (01/18/2024 10:57 AM EST) TSH 1.21 0.27 - 4.20 uIU/mL [facility] Blood 01/18/2024 10:5 7 AM EST 01/18/2024 11:12 AM EST us Janet Torres DO LAB BLOOD ORDERABLES Final Resul t [facility] [address] [place] [address] * BD DXA AXIAL (SPINE) WITH HIP (11/09/2023 1:31 PM EDT) Anatomical Region Laterality Modality Bone Density Bone Density 11/09/2023 1:28 PM EDT Impressions 11/09/2023 3:00 PM EDT Interpretation: Osteopenia. Narrative 11/09/2023 3:00 PM EDT Referred By: JANET TORRES Indications: Osteoporosis Scanner: [employer] A with serial# of [id number] located at [facility] Bone Density Scan (DXA) 11/09/23 Details of prior DXA scans are available by clicking View Image BMD T- Z- Skeletal Site gm/cm2 score score BMD Change Since Prior Scan ------ ----- ----- PA Spine (L1-L4) 0.939 -1.00 1.10 0.054 (6.1%)* since 09/13/2021 Total Hip (Left) 0.716 -1.90 -0.40 0.007 (stable) since 09/13/2021 Femoral Neck (Left) 0.588 -2.40 -0.70 0.023 (stable) since 09/13/2021 ------ ----- ----- * Denotes significant change when >= 0.022 g/cm2 for the spine, 0.027 g/cm2 for the total hip, 0.029 g/cm2 for the femoral neck. Interpretation: Osteopenia. Technical Quality: Imaging of all sites was of adequate quality. FRAX: A FRAX(r) score was not calculated because the patient indicated use of osteoporosis medication within the past 12 months. Additional Information: -World Health Organization criteria classify adults based on lowest T-score at PA spine, hip or forearm: Normal (T-score >= -1.0), Osteopenia (T-score between -1 and -2.5), or Osteoporosis (T-score <= -2.5). At [facility], T-scores are compared to peak bone density of a young white gender matched reference population. - For premenopausal women and men under the age of 50, Z-scores (comparison to age, gender, and ethnicity matched reference population) are used: Above expected range for age (Z-score >= 2.0), Within expected range of age (Z-score 1.9 to -1.9), or Below expected range for age (Z-score <= -2.0). - The Bone Health and Osteoporosis Foundation recommends that treatment be considered in men aged more than 50 years and in postmenopausal women with ANY of the following: Prior hip or vertebral fractures; T-score of <= -2.5 at the PA spine or hip; or 10 year fracture probability by FRAX of >= 3% for the hip or >= 20% for major osteoporotic fracture. - The FRAX algorithm (https://www.chet.ac.uk/FRAX/tool.aspx) is designed to predict 10-year fracture risk in treatment-naive adults between the ages of 40 and 90. It is not intended to be used in those receiving pharmacologic osteoporosis treatment. - Including race/ethnicity in the generation of T- or Z-scores or in the FRAX calculation is complicated, and currently undergoing active review to ensure that we can give patients the best information on their risk of fracture. -Some prior studies may not be compatible with our comparison software. -Click on View Full Report to see subsequent pages with images and prior bone density results. Reviewed By: Jeremie Renteria on 11/09/2023 15:00:54 Procedure Note Jeremie Renteria MD - 11/09/2023 Referred By: JANET TORRES Indications: Osteoporosis Scanner: [employer] A with serial# of [id number] located at [facility] Bone Density Scan (DXA) 11/09/23 Details of prior DXA scans are available by clicking View Image BMD T- Z- Skeletal Site gm/cm2 score score BMD Change Since Prior Scan ------ ----- PA Spine (L1-L4) 0.939 -1.00 1.10 0.054 (6.1%)* since09/13/2021 Total Hip (Left) 0.716 -1.90 -0.40 0.007 (stable) 09/13/2021 Femoral Neck (Left) 0.588 -2.40 -0.70 0.023 (stable) 09/13/2021 ------ ----- * Denotes significant change when >= 0.022 g/cm2 for the spine, 0.027g/cm2 for the total hip, 0.029 g/cm2 for the femoral neck. Interpretation: Osteopenia. Technical Quality: Imaging of all sites was of adequate quality. FRAX: A FRAX(r) score was not calculated because the patient indicated use of osteoporosis medication within the past 12 months. Additional Information: -World Health Organization criteria classify adults based on lowestT-score at [place] spine, hip or forearm: Normal (T-score >= -1.0), Osteopenia (T-score between -1 and -2.5), or Osteoporosis (T-score <= -2.5). At [facility], T-scores are compared to peak bone density of a young white gender matched reference population. - For premenopausal women and men under the age of 50, Z-scores(comparison to age, gender, and ethnicity matched reference population) are used:Above expected range for age (Z-score >= 2.0), Within expected range of age (Z-score 1.9 to -1.9), or Below expected range for age (Z-score <= -2.0). - The Bone Health and Osteoporosis Foundation recommends that treatment be considered in men aged more than 50 years and in postmenopausal women with ANY of the following: Prior hip or vertebral fractures; T-score of <= -2.5 at the PA spine or hip; or 10 year fracture probability by FRAX of >= 3%for the hip or >= 20% for major osteoporotic fracture. - The FRAX algorithm (https://www.chet.ac.uk/FRAX/tool.aspx) is designed to predict 10-year fracture risk in treatment-naive adultsbetween the ages of 40 and 90. It is not intended to be used in those receiving pharmacologic osteoporosis treatment. - Including race/ethnicity in the generation of T- or Z-scores or in the FRAX calculation is complicated, and currently undergoing active review to ensure that we can give patients the best information on their risk of fracture. -Some prior studies may not be compatible with our comparison software. -Click on View Full Report to see subsequent pages with images and prior bone density results. Reviewed By: Jeremie Renteria on 11/09/2023 15:00:54 IMPRESSION: Interpretation: Osteopenia. Janet Torres DO IMG BD BONE DENSITY DEXA Final R esult from Last 3 Months or Most Recently Relevant to Health Maintenance Insurance MEDICARE PART A & B [facility] MEDICARE PART A & B HEALTH MEDICARE PART A & B [facility]ALTH MEDICARE PART A & [facility] [facility] PART [facility] & [place] B [facility] MED[facility] PART [facility] & [place] & [facility] B [facility] Care Teams Blocker Polishing Relationship Specialty Start Date End Date Brian Rodas MD [address] [place] [phone] PCP - General Internal Medicine 04/17/19 Additional Source Comments The information contained in this document represents components of the legal health record. It is not the complete legal health record.[facility]
== END ==
LOC: HO.CARD 14:04
PROVIDERS: Visit Provider Student in an Organized Health Care Education/Training Program
DX: R06.02 Shortness of breath (principal)
CPT/HCPCS: 93306

== ENCOUNTER → 2024-11-27 14:14 | Outpatient (BNV) | payer OTHER, SELFPAY | PROVIDERS: Visit Provider Internal Medicine Cardiovascular Disease | DX: R06.02 Shortness of breath (principal); I25.3 Aneurysm of heart | CPT/HCPCS: 93306 ==

== ENCOUNTER 2024-12-11 15:09 | Outpatient (AMB) | payer OTHER, SELFPAY ==
--- NOTE | 2024-12-11 15:21 | A.OFFVIS_ITS ---
Vital Signs 12/11/24 15:32 Height 4 ft 11 in Weight 107 lb 2.314 oz BMI 21.6 BP 132/78 Blood Pressure Location Lt brachial Position Sitting Pulse 83 Pulse Source Pulse Oximeter Pulse Oximetry (%) 100 Oxygen Delivery Method Room Air Intake Visit Reasons: Sjogren's Intake Note: Patient presents for Sjogren's follow up. Ventilation Equipment Tender Required: Yes Ventilation Equipment Tender Language: Fleet Technician Services: Ventilation Equipment Tender Present Ventilation Equipment Tender Name: Jarret [id number] Information Interpreted: non-clinical & clinical Allergies broccoli Allergy (Severe, Verified 12/11/24 15:30) Swelling clindamycin Adverse Reaction (Verified 12/11/24 15:30) Shortness of Breath, Angina Medication List - Last Reconciled 12/11/24 by Reshma Sun MD albuterol sulfate 90 mcg/actuation (Ventolin HFA) 1 inh inhalation Q4-6H PRN alendronate 70 mg PO QWEEK baclofen 10 mg PO BID PRN 30 days calcium carbonate 500 mg PO BID cetirizine 10 mg PO cholecalciferol (vitamin D3) (Vitamin D3) 50 mcg PO DAILY clobetasol 0.05% topical diclofenac sodium 1% (Arthritis Pain (diclofenac)) 4 grams topical QID epinephrine IM DIRECTED ibuprofen (Advil) 200 mg PO Q6H PRN levothyroxine (Synthroid) 50 mcg PO DAILY magnesium oxide 400 mg PO DAILY meclizine 25 mg PO BID PRN prednisolone acetate 1% drps ophthalmic (eye) DAILY HPI Comments Details: Patient is a 69-year-old female with allergies, hypothyroidism, osteoporosis, Sjogren's syndrome and polyarticular osteoarthritis here today for follow up Interval History: Patient last seen 12/12/[address] Ellis - Not on any DMARDs - She states that she feels about the same overall. No cough or shortness of breath. No significant joint pains. No significant weight change. Today - Not on any DMARDs - Current complaints: Sicca symptoms, bilateral knee pain and bilateral shoulder pain - Shoulder pain is the worse of the two Rheumatologic History: Dry eyes, dry mouth, +++SSa, arthralgias, leukopenia, Raynaud's Initial history: Pt reports joint pain located in her fingers, toes, knees, hips, mid back. Pain has been present for years and slowly worsening. Pain is present all day long. Pain is worse with activity. Has diffuse morning stiffness that lasts a few minutes. Feels that her hands swell occasionally. Pain is aching in nature, can get up to 5/10. Pt uses Sulindac for severe pain which helps a little. + Raynauds in fingers since 16yo, no history of digital ulcers + dry eyes + thinning hair, no alopecia Pt denies photosensitivity, oral or nasal ulcers, oral dryness, fevers, alopecia. Sister with SLE. No family history of RA. Current Rheumatology Medication(s): [facility] Medical History Raynauds disease Chronic constipation Osteoporosis Left breast lump Sjogren's syndrome with keratoconjunctivitis sicca JEREMY positive Surgical History H/O: hysterectomy Hx of cholecystectomy Family History Daughter Asthma Sister SLE (systemic lupus erythematosus related syndrome) Daughter Cancer Social History Household Members: Family Are you a primary care partner to a significant other at home: Yes Do you presently have visiting nurse or other home services: No Alcohol intake: never Patient Tobacco Use Status: Never used Tobacco Second Hand Smoke Exposure: Yes Current occupational status: disabled Review of Systems Narrative Review of Systems Constitutional: Denies fever, chills, weight loss GI: Denies nausea, vomiting, diarrhea, abdominal pain, change in BM Pulm: Denies SOB, SHER, hemoptysis, wheezing Cards: Denies chest pain, palpitations Skin: Denies nail changes, photosensitivity, PATCHER BOWLING BALL: Denies headaches, weakness, paresthesias, recurrent falls MSK: as per HPI All other systems reviewed and are unremarkable except noted above Physical Exam Exam Exam: Vital signs reviewed Physical Examination CONSTITUITIONAL Patient alert and cooperative. Well appearing and in no apparent painful distress MSK Hands * Right Hand: Able to make a fist. No swelling or tenderness to palpation of the MCPs, PIPs or DIPs. * Left Hand: Able to make a fist. No swelling or tenderness to palpation of the MCPs, PIPs or DIPs. * Herbedens nodes noted bilaterally Wrists * Right Wrist: Full ROM to flexion and extension. No swelling or TTP * Left Wrist: Full ROM to flexion and extension. No swelling or TTP Elbows * Right Elbow: Full ROM. No swelling or TTP. No TTP of the medial epicondyle. No TTP of the lateral epicondyle * Left Elbow: Full ROM. No swelling or TTP. No TTP of the medial epicondyle. No TTP of the lateral epicondyle Shoulders * Right shoulder: No swelling noted. TTP of the AC joint. No TTP of the subacromial bursa. No TTP of the posterior shoulder * Left shoulder: No swelling noted. TTP of the AC joint. No TTP of the subacromial bursa. No TTP of the posterior shoulder Knees * Right knee: Good ROM. No swelling noted. TTP of the knee joint line. No TTP of pes anserine bursa * Left knee: Good ROM. No swelling noted. TTP of the knee joint line. No TTP of pes anserine bursa. * Crepitations felt bilaterally Ankles * Right ankle: Good ankle dorsiflexion and plantar flexion. No swelling. No TTP of the ankle joint * Left ankle: Good ankle dorsiflexion and plantar flexion. No swelling. No TTP of the ankle joint Feet * Right foot: Negative squeeze test * Left foot: Negative squeeze test Tender points? * No tenderness to palpation of the bilateral trapezius, supraspinatus, anterior costochondral junctions, bilateral suboccipital muscle insertions SKIN No rashes Vital Signs: Last Vital Signs Pulse 83 12/11/24 15:32 BP 132/78 12/11/24 15:32 Pulse Ox 100 12/11/24 15:32 Oxygen Delivery Method Room Air 12/11/24 15:32 BMI result Body Mass Index 21.6 Office Procedures AMB Joint Injection/Aspiration Joint Injection/Aspiration Details: Procedure was explained to the patient and informed consent was obtained. ? Risks associated with the procedure were discussed with the patient including but not limited to bleeding, infection, drug reactions and reactions to the topical anesthetic. Patient made aware of signs to look out for infectious complications. The area of interest was identified and confirmed with patient. ?This was subsequently cleaned with chlorhexidine x 2. ? The area was then anesthetized using ethyl chloride spray. 40 mg Kenalog with 1 cc 1% lidocaine was injected without issue. ?Minimal to no bleeding. ?Patient tolerated procedure. Primary Site: right shoulder Prep: site was prepped using aseptic technique and ethochloride spray was applied Injected: 40 mg of, Kenalog, with 1 mL of, 1% plain lidocaine and in the joint Approach Used: anterior Procedure: The patient tolerated the procedure well Coding 33985 - Acromioclavicular Procedure code (CPT) selection complete AMB Joint Injection/Aspiration Joint Injection/Aspiration Details: Procedure was explained to the patient and informed consent was obtained. ? Risks associated with the procedure were discussed with the patient including but not limited to bleeding, infection, drug reactions and reactions to the topical anesthetic. Patient made aware of signs to look out for infectious complications. The area of interest was identified and confirmed with patient. ?This was subsequently cleaned with chlorhexidine x 2. ? The area was then anesthetized using ethyl chloride spray. 40 mg Kenalog with 1 cc 1% lidocaine was injected without issue. ?Minimal to no bleeding. ?Patient tolerated procedure. Primary Site: left shoulder Prep: site was prepped using aseptic technique and ethochloride spray was applied Injected: 40 mg of, Kenalog, with 1 mL of, 1% plain lidocaine and in the joint Approach Used: anterior Procedure: The patient tolerated the procedure well Coding 77465 - Acromioclavicular Procedure code (CPT) selection complete Office Meds lidocaine (PF) 10 mg/mL (1 %) injection solution Performing Provider: Reshma Sun MD Performing Location: [facility] [place] [facility] Administered by: Adrienne Delgado RN on 12/11/24 16:18 Dose Route Admin Location Dispensed Lot Number Expiration Date [facility] Assembler Garment Form 1 mL intraarticular right shoulder (AC joint) 2 mL [id number] 07/05/26 05643-587-37 [employer] Total Dispensed Waste 2 mL 50 % Kenalog 40 mg/mL suspension for injection Performing Provider: Reshma Sun MD Performing Location: [facility] [place] [facility] Administered by: Adrienne Delgado RN on 12/11/24 16:18 Dose Route Admin Location Dispensed Lot Number Expiration Date [facility] Assembler Garment Form 40 mg intra-articular right shoulder (AC joint) 1 mL [id number] 08/04/26 [address]-9 [employer] Total Dispensed Waste 1 mL 0 % lidocaine (PF) 10 mg/mL (1 %) injection solution Performing Provider: Reshma Sun MD Performing Location: [facility] [place] [facility] Administered by: Adrienne Delgado RN on 12/11/24 16:18 Dose Route Admin Location Dispensed Lot Number Expiration Date [place] [employer] Garment Form 1 mL Infiltration left shoulder (AC joint) 2 mL [id number] 07/05/26 6 3323-492-04 [employer] Total Dispensed Waste 2 mL 50 % Kenalog 40 mg/mL suspension for injection Performing Provider: Reshma Sun MD Performing Location: [facility] [place] [facility] Administered by: Adrienne Delgado RN on 12/11/24 16:18 Dose Route Admin Location Dispensed Lot Number Expiration Date [place] As[employer]er Garment Form 40 mg intra-articular left shoulder (AC joint) 1 mL [id number] 08/04/26 [address]-1 [employer] Total Dispensed Waste 1 mL 0 % Results Reviewed Results Reviewed: Laboratory Tests 11/04/24 11:16 WBC 3.7 L RBC 4.18 L Hgb 11.6 L Hct 34.5 L Plt Count 259 ESR 34 H Sodium 145 Potassium 3.6 Chloride 109 H Carbon Dioxide 29 BUN 15 Creatinine 0.60 AST 22 ALT 12 C-Reactive Protein 0.42 PEP Interpretation SEE NOTE Laboratory Tests 11/04/24 11:16 Double Strand DNA Ab <1 Complement C3 151 Complement C4 28 XR Right Shoulder 07/2023 FINDINGS: RIGHT SHOULDER: Diffuse demineralization. Moderate degenerative changes in the acromioclavicular joint with joint space narrowing and hypertrophic change. Glenohumeral alignment preserved. Minimal soft tissue calcifications have spurring along the greater tuberosity. IMPRESSION: 1. Moderate degenerative changes right acromioclavicular joint. XR C Spine 07/2023 FINDINGS: CERVICAL SPINE: Diffuse demineralization. Degenerative changes between the anterior arch of C1 and the odontoid. Moderate multilevel cervical spondylosis. Cervical disc space heights are preserved. Minimal anterolisthesis of C2 on C3, C3 on C4, C4 on C5, and C5 on C6 with flexion and reduces with extension. Minimal retrolisthesis of C4 on C5, and C5 on C6 with extension. IMPRESSION: 1. Moderate multilevel cervical spondylosis. Assessment & Plan Assessment & Plan (1) Sjogren's syndrome with keratoconjunctivitis sicca: Code(s): M35.01 - Sjogren syndrome with keratoconjunctivitis Category: Medical Plan: #Sjogren's Syndrome Patient is a 69-year-old female with Sjogren's syndrome complicated by keratoconjunctivitis sicca symptoms and Raynaud's here today for follow up No fingertip ulcers or inflammatory arthritis symptoms at this time In the past she tried hydroxychloroquine but could not continue due to eye changes At this time discussed with the patient extensively about the limited therapeutic options for Sjogren's syndrome Recommended continued eyedrops and mouthwash to counter the sicca symptoms Plan - Recommend continued eye drops and mouth wash - No further DMARDs at this time - RTC 6 months - Labs before visit: CBC, CMP, ESR, CRP, C3, C4, RF, SPEP (2) Osteoporosis: Code(s): M81.0 - Age-related osteoporosis without current pathological fracture Category: Medical Qualifiers: Osteoporosis type: age-related Presence of current pathological fracture: without current pathological fracture Qualified Code(s): M81.0 - Age-related osteoporosis without current pathological fracture Plan: #Osteoporosis Continue follow up with endocrinology (3) Osteoarthritis of shoulders, bilateral: Code(s): M19.011 - Primary osteoarthritis, right shoulder; M19.012 - Primary osteoarthritis, left shoulder Qualifiers: Osteoarthritis type: primary Qualified Code(s): M19.011 - Primary osteoarthritis, right shoulder; M19.012 - Primary osteoarthritis, left shoulder Plan: #Bilateral shoulder OA Status post bilateral AC joint steroid injection Plan This is my first visit with the patient. Using the puppet engineer I spent 45 minutes reviewing the record and labs, taking a history, examining the patient, discussing the treatment plan, answering questions, ordering diagnostic work up and documenting in the medical record Orders: Orders AMB Joint Injection/Aspiration 12/11/24 M19.011 - Primary osteoarthritis, right shoulder, M19.012 - Primary osteoarthritis, left shoulder AMB Joint Injection/Aspiration 12/11/24 M19.011 - Primary osteoarthritis, right shoulder, M19.012 - Primary osteoarthritis, left shoulder Coding Level of Care Code Est Pt Level 5 (54027) Complex EM visit Add On G2211 Diagnoses Sjogren's syndrome with keratoconjunctivitis sicca M35.01 Age-related osteoporosis without current pathological fracture M81.0 Osteoporosis type: age-related Presence of current pathological fracture: without current pathological fracture Primary osteoarthritis of both shoulders M19.011; M19.012 Osteoarthritis type: primary CPT Codes Coding - Joint 5: 12370 - Acromioclavicular ([id number]) Coding - Joint 5: 58501 - Acromioclavicular ([id number])
[2024-12-11 15:32] VITALS: BP 132/78; PULSE 83; O2SAT 100; BMI 21.6
--- OUTSIDE RECORDS SUMMARY | 2024-12-11 18:12 | XMS_ITS | Encounter Summary ---
Author Organization [employer] Address [address] [place] [address] Care Team Providers Care Marketing Director Name Role Phone Rosanne Ayala Primary Care Provider [phone] Rosanne Ayala Primary Care Provider [phone] Lilian Granado MD Primary Care Provider + Reason for Visit * Reason Onset Date Comments appt with Dr. Negron 11/27/2022 Encounter Details Date Type Department Care Team ([facility] st Contact Info) Description 11/27/2022 Telephone [facility] ADULT DENTAL [address] [place] [address] Moris Negron, DMD [address] [place] [address] Negron Social History Tobacco [...] Care Team (Late st Contact Info) Description 02/24/2025 2:00 PM EST Office Visit [facility] OPTOMETRY [address] [place] [address] TarkaJyotsna, OD [address] [place] [address] documented as of this encounter Visit Diagnoses Not on filedocumented in this encounter Care Teams Marketing Director Relationship Specialty Start Date End Date Rosanne Ayala ANP [address] [place] [address] PCP - General Family Medicine 01/23/20 09/04/24 Rosanne Ayala ANP [address] [place] [address] PCP - General Family Medicine 09/05/24 09/07/24 Lilian Granado MD [address] [place] [address] PCP - General Internal Medicine 09/08/24 documented as of this encounter
--- OUTSIDE RECORDS SUMMARY | 2024-12-11 18:12 | XMS_ITS | Encounter Summary ---
Author Organization [employer] Address [address] [facility] [address] [place] [address] Care Team Providers Care Fisher Clam Name Role Phone Rosanne Ayala Primary Care Provider [phone] Rosanne Ayala Primary Care Provider [phone] Lilian Granado MD Primary Care Provider + Reason for Visit * Reason Onset Date Comments Extraction 11/03/2022 Encounter Details Date Type Department Care Team ([facility] st Contact Info) Description 11/03/2022 Telephone [facility] ADULT DENTAL [address] [place], [place] [phone] Bro Horne DDS [address] [place], [place] [phone] Extraction Social History Tobacco Use Types Packs/Day [...] Description 02/24/2025 2:00 PM EST Office Visit [facility] OPTOMETRY [address] [place], [place] [phone] Jyotsna Patel, OD [address] [place] [address] documented as of this encounter Visit Diagnoses Not on filedocumented in this encounter Care Teams Fisher Clam Relationship Specialty Start Date End Date Rosanne Ayala ANP [address] [place] [address] PCP - General Family Medicine 01/23/20 09/04/24 Rosanne Ayala ANP [address] [place] [address] PCP - General Family Medicine 09/05/24 09/07/24 Lilian Granado MD [address] [place] [address] PCP - General Internal Medicine 09/08/24 documented as of this encounter
--- OUTSIDE RECORDS SUMMARY | 2024-12-11 18:12 | XMS_ITS | Encounter Summary ---
Author Organization [employer] Address [address] [facility] 7t [place] [address] Care Team Providers Care Video Production Coordinator Name Role Phone Rosanne Ayala Primary Care Provider [phone] Rosanne Ayala Primary Care Provider Lilian Granado MD Primary Care Provider + Encounter Details Date Type Department Care Team ([facility] Contact Info) Description 09/06/2022 Orders Only [facility]ED[facility] [address] [place], [place] [phone] Mary Gilman LPN Social History Tobacco Use [...] Upcoming Encounters Date Type Department Care Team ([facility] Contact Info) Description 02/24/2025 2:00 PM EST Office Visit [facility] OPTOMETRY [address] [place], [place] [phone] Lucreciamaureen Jyotsna, OD [address] [place] [address] documented as of this encounter Visit Diagnoses Not on filedocumented in this encounter Care Teams Video Production Coordinator Relationship Specialty Start Date End Date Rosanne Ayala ANP [address] [place] [address] PCP - General Family Medicine 01/23/20 09/04/24 Rosanne Ayala ANP [address] [place] [phone] PCP - General Family Medicine 09/05/24 09/07/24 Lilian Granado MD [address] [place] [id number] PCP - General Internal Medicine 09/08/24 documented as of this encounter
--- OUTSIDE RECORDS SUMMARY | 2024-12-11 18:12 | XMS_ITS | Encounter Summary ---
Author Organization [employer] Address [address] [place] [address] Care Team Providers Care Open Hearth Stockyard Supervisor Name Role Phone Rosanne Ayala Primary Care Provider [phone] Rosanne Ayala Primary Care Provider [phone] Lilian Granado MD Primary Care Provider + Encounter Details Date Type Department Care Team ([facility] st Contact Info) Description 01/23/[address] [facility] ADULT DENTAL [address] [place], [place] [phone] Bro Horne DDS [address] [place], [place] [phone] Social History Tobacco Use Types Packs/Day Years [...] Description 02/24/2025 2:00 PM EST Office Visit [facility] OPTOMETRY [address] [place] [address] Jyotsna Patel, OD [address] [place] [address] documented as of this encounter Visit Diagnoses Not on filedocumented in this encounter Care Teams Open Hearth Stockyard Supervisor Relationship Specialty Start Date End Date Rosanne Ayala ANP [address] [place] [address] PCP - General Family Medicine 01/23/20 09/04/24 Rosanne Ayala ANP [address] [place] [address] PCP - General Family Medicine 09/05/24 09/07/24 Lilian Granado MD [address] [place] [address] PCP - General Internal Medicine 09/08/24 documented as of this encounter
--- OUTSIDE RECORDS SUMMARY | 2024-12-11 18:12 | XMS_ITS | Clinical Summary ---
Author Organization [facility] Address [address] [place] [address] Phone Care Team Providers Care Poultry Farm Laborer Name Role Phone Brian Rodas MD Primary [...] 10:30 AM EST Office Visit [facility] [address] [place] [phone] Janet Torres DO [address] [place] [address] Health Maintenance Due Date Last Done Comments [...] Procedure Name Priority Date/Time Associated Diagnosis Comments THYROID STIMULATING HORMONE (TSH) Routine 01/18/2024 10:57 AM EST Hypothyroidism, unspecified type BD DXA AXIAL (SPINE) WITH HIP Routine 11/09/2023 1:31 PM EDT Age-related osteoporosis without current pathological fracture from Last 3 Months or Most Recently Relevant to Health Maintenance Results * TSH (01/18/2024 10:57 AM EST) TSH 1.21 0.27 - 4.20 uIU/mL [facility] Blood 01/18/2024 10:5 7 AM EST 01/18/2024 11:12 AM EST us Janet Torres DO LAB BLOOD BKR ORDERABLES Final R esult [facility] [address] [place] [address] * BD DXA AXIAL (SPINE) WITH HIP (11/09/2023 1:31 PM EDT) Anatomical Region Laterality Modality Bone Density Bone Density 11/09/2023 1:28 PM EDT Impressions 11/09/2023 3:00 PM EDT Interpretation: Osteopenia. Narrative 11/09/2023 3:00 PM EDT Referred By: JANET TORRES Indications: Osteoporosis Scanner: [employer]Cha A with serial# of [id number] located at [facility] Bone Density Scan (DXA) 11/09/23 Details [...] -2.5), or Osteoporosis (T-score <= -2.5). At [facility], T-scores are compared to peak bone [...] Referred By: JANET TORRES Indications: Osteoporosis Scanner: [employer] A with serial# of [id number] located at [facility] Bone Density Scan (DXA) 11/09/23 Details of [...] criteria classify adults based on lowestT-score at PA spine, hip or forearm: Normal (T-score >= -1.0), Osteopenia (T-score between -1 and -2.5), or Osteoporosis (T-score <= -2.5). At [facility], T-scores are compared to peak bone [...] Maintenance Insurance MEDICARE PART A & B [facility] MEDIC[facility] PART A & B [place] A & B [facility] MEDICARE PART A & B [place] B [facility] Care Teams Poultry Farm Laborer Relationship Specialty Start Date End Date Brian Rodas MD [address] [place] [id number] PCP - General Internal Medicine 04/17/19 Additional Source Comments The information contained in this document represents components of the legal health record. It is not the complete legal health record.[facility]
--- OUTSIDE RECORDS SUMMARY | 2024-12-11 18:12 | XMS_ITS | Clinical Summary ---
Author Organization [employer] Address [address] [facility] 7[address] [place] [address] Care Team Providers Care Battery Test Engineer Name Role Phone Jeremy Granado MD Primary Care Provider + Allergies Active Allergy Reactions Criticality Noted Date Comments Brassica Oleracea 04/20/2021 Clindamycin 05/20/2020 Spinach 04/20/2021 Latexo Extract 11/10/2024 Medications Calcium Carbonate (CALCI-MIX PO) 0 Refills, [...] down for 30 minutes 10/04/19 23 Active hydrOXYzine HCl (Atarax) 25 MG tablet Take 25 mg by mouth if needed each day. 06/07/19 22 Active acetaminophen (Tylenol) 500 MG tablet Take 2 tablets (1,000 mg) by mouth every 6 (six) hours if needed for moderate pain or fever for up to 25 doses. 50 tablet 11/28/19 24 Active cetirizine (ZyrTEC) 10 MG tabletIndicat ions:Multiple allergies TAKE 1 TABLET BY MOUTH ONCE DAILY NEEDED FOR ALLERGIES. USE SPARINGLY. 90 tablet 1 12/28/19 24 Active clobetasol (Temovate) 0.05 % ointment APPLY TO THE AFFECTED AREA(S) TWICE A WEEK NEEDED. Had burning with betamethasone 30 g 1 01/24/20 24 Active D3 Super Strength 50 MCG (2000 UT) capsule Take 1 capsule (50 mcg) by mouth Once per day. 30 capsule 11 11/11/19 25 Active aspirin 81 MG chewable tablet Chew 1 tablet (81 mg) Once per day. 30 tablet 11 11/11/19 25 026 Active phenylephrine -cocoa butter (Preparation H) 0.25-88.44 % Insert 1 suppository into the rectum if needed each day for hemorrhoids. 30 suppository 11/11/19 025 Active Problems Problem Noted Date Diagnosed Date Acquired hydronephrosis 11/10/2024 Assessment & Plan (11/10/2024 9:50 AM EDT): On renal ultrasound earlier this year status post significant low back pain, now resolved. It seems to have been secondary to patient passing a kidney stone at the time, however she never follow-up with PCP at the time. I will order a follow-up ultrasound to assess the status of the hydronephrosis and see if she needs additional referral at this is one of the first few times I see patient is after she was transferred to my care. Nevus 11/10/2024 Assessment & Plan (11/10/2024 9:51 AM EDT): On right arm. I will refer to dermatology External hemorrhoids 11/10/2024 Assessment & Plan (11/10/2024 9:49 AM EDT): Use Preparation H suppository as needed, avoid constipation. Colonoscopy is up-to-date, patient to consult as needed significant bleeding or rectal pain. Adjustment disorder with anxiety 11/10/2024 Assessment & Plan (11/10/2024 9:51 AM EDT): We discussed about coping mechanisms with anxiety, helping her daughters during times of need especially chronic illness. She tells me she goes out few times per week with her friend from [place] and she finds it very relaxing. She does not want to take any medication at this time and declines to be referred to counselor. She feels safe at home and is able to reach out for safety, she will get back to me as needed if she wants a referral to team Lung nodule 09/08/2024 Overview (09/08/2024): CT scan [...] Continue levothyroxine 50 mg and follow-up with double back operator. Low back pain with radiation 05/19/2024 Assessment [...] 02/07/2022 History of cholecystectomy 02/07/2022 Leukopenia 02/07/2022 Assessment & Plan (11/10/2024 9:50 AM EDT): Chronic, she does not have ANC. 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 Follow-up CBC yearly and follow-up with rheumatology H/O: hysterectomy 02/07/2022 Bilateral carotid artery stenosis [...] + D Check PTH levels Follow-up with double back operator Age-related osteoporosis darron hunter current pathological fracture 09/29/2019 Overview (02/07/2022): Last [...] Encounters Date Type Department Care Team Description 11/10/2024 9:00 AM EDT Office Visit [address] [phone] Jeremy Granado MD Acquired hydronephrosis (Primary Dx); Adjustment disorder with anxiety; Leukopenia, unspecified type; Nevus; External hemorrhoids; Encounter for immunization 11/10/2024 Travel 11/10/2024 Telephone [facility] [address] [place] [phone] Jeremy Granado MD Chart prep 11/04/2024 Telephone [facility] [address], [place] [phone] Jeremy Granado MD R/S from 11/1411/04/2024 Orders Only GENERIC EXTERNAL DATA DEPARTMENT Provider, Generic External Data from Last 3 Months Immunizations Immunization Administration Dates Next Due Hep B, adult 06/03/2020,03/12/2020,02/12/2020 Influenza High-dose Quadriva lent Preservative Free 10/13/2021,02/12/2020 Influenza injectable quadriv alent preservative free 01/15/2023,01/27/2021 Influenza, High Dose Seasona l, Preservative Free 11/10/2024,04/02/2024 Pfizer Covid-19 Vaccine 12+ Bivalent 02/13/2022 Pneumococcal [...] Sign Reading Time Taken Comments Blood Pressure 132/58 11/10/2024 8:57 AM EDT Pulse 66 11/10/2024 8:57 AM EDT Temperature 36.4 C (97.5 F) 11/10/2024 8:57 AM EDT Respiratory Rate 18 11/10/2024 8:57 AM EDT Oxygen Saturation 98% 09/08/2024 1:12 PM EDT Inhaled Oxygen Concentration - - Weight 49.2 kg (108 lb 8 oz) 11/10/2024 8:57 AM EDT Height 152.4 cm (5') 11/10/2024 8:57 AM EDT Body Mass Index 21.19 11/10/2024 8:57 AM EDT Plan of Treatment Upcoming Encounters Date Type Department Care Team (Late st Contact Info) Description 02/24/2025 2:00 PM EST Office Visit [facility] [address] [place], [place] [phone] Jyotsna Patel, OD [address] [place] [address] Health Maintenance Due Date Last Done Comments [...] 2024 02/13/2022, 09/06/2021, 01/27/2021, Additional history exists Colonoscopy 04/16/2025 04/16/2020 Colorectal Cancer Screening 04/16/2025 Mammogram 07/21/2025 07/21/2024, 07/06, 07/11/2022, Additional history exists Alcohol/Substance Use Screening 09/08/2025 09/08/2024 Depression Screening 09/08/2025 09/08/2024, 09/09/19 SDOH Screening 09/08/2025 09/08/2024 Tobacco Screening 11/10/2025 11/10/2024 RSV Patients and Patients Aged 60 years or older (1 - 1-dose 75+ series) 2028 DTaP/Tdap/Td Vaccines (2 - Td or Tdap) 02/11/2030 02/12/2020 Hepatitis B Vaccines Completed 06/03/2020, 03/12/2020, 02/12/2020 Zoster Vaccines Completed 10/05/2020, 08/04/2020 Pneumococcal Vaccine: 50+ Years Completed 09/08/2024, 02/12/2020 Hepatitis C Screening Completed 11/04/2024 , 06/27/2022, 01/26/2020 Influenza Vaccine Completed 11/10/2024, , 01/15/2023, Additional history exists HIB Vaccines Aged Out [...] Procedure Name Priority Date/Time Associated Diagnosis Comments IMMUNOFIXATION, SERUM Routine 11/04/2024 11:16 AM EDT DNA (DS) ANTIBODY Routine 11/04/2024 11: 16 AM EDT PROTEIN, TOTAL AND PROTEIN ELECTROPHORESIS Routine 11/04/2024 11:16 AM EDT COMPLEMENT COMPONENT C4C Routine 11/04/2024 11:16 AM EDT COMPLEMENT COMPONENT C3C Routine 11/04/2024 11:16 AM EDT SED RATE BY MODIFIED WESTERGREN Routine 11/04/2024 11:16 AM EDT COMPREHENSIVE METABOLIC PANEL Routine 11/04/2024 11:16 AM EDT C-REACTIVE PROTEIN Routine 11/04/2024 11 :16 AM EDT CBC WITH AUTO DIFFERENTIAL Routine 11/04/2024 11:16 AM EDT PTH, INTACT WITHOUT CALCIUM Routine 11/04/2024 11:16 AM EDT Sjogren's syndrome, with unspecified organ involvement (CMS/HCC) LIPID PANEL WITH REFLEX TO DIRECT LDL Routine 11/04/2024 11:16 AM EDT Osteoporosis without current pathological fracture, unspecified osteoporosis type SYPHILIS SCREEN Routine 11/04/2024 11:16 AM EDT Thyroid nodule HEPATITIS PANEL, GENERAL Routine 11/04/2024 11:16 AM EDT Lung nodule HIV 1/2 ANTIGEN/ANTIBODY, FOURTH GENERATION W/RFL Routine 11/04/2024 11:16 AM EDT Lung nodule COMPREHENSIVE METABOLIC PANEL Routine 11/04/2024 11:16 AM EDT Sjogren's syndrome, with unspecified organ involvement (CMS/HCC) Thyroid nodule CBC WITH AUTO DIFFERENTIAL Routine 11/04/2024 11:16 AM EDT Sjogren's syndrome, with unspecified organ involvement (CMS/HCC) PROTEIN CREATININE RATIO, URINE Routine 11/04/2024 11:02 AM EDT URINALYSIS, COMPLETE Routine 11/04/2024 11:02 AM EDT BI MAMMOGRAM SCREENING TOMOSYNTHESIS BILATERAL Routine 07/21/2024 2:52 PM EDT PROPHYLAXIS - ADULT Routine 11/01/2022 1 1:00 AM EDT BITEWINGS - 3 RADIOGRAPHIC IMAGES Routine 11/01/2022 11:00 AM EDT PERIODIC ORAL EVALUATION - ESTABLISHED PATIENT Routine 05/20/2020 12:00 AM EDT PANORAMIC RADIOGRAPHIC IMAGE Routine 04/29/2020 12:00 AM EDT HM COLONOSCOPY Routine 04/16/2020 from Last 3 Months or Most Recently Relevant to Health Maintenance Results * Syphilis Screen (11/04/2024 11:16 AM EDT) Syphilis Screen Nonreactive Nonreactive [facility] Blood 11/04/2024 11:1 6 AM EDT 11/04/2024 11:16 AM EDT us Jeremy Granado MD LAB BLOOD ORDERABLES Fin al Result [facility] [address] [place] [phone] * (ABNORMAL) Lipid Panel with Reflex to Direct LDL (11/04/2024 11:16 AM EDT) Triglycerides 107 <150 mg/dL [facility] Comment:Desirable Triglyceri de: less than 150 mg/dLBorderline High Triglyceride 150-199 mg/dLHigh Triglyceride: 200-499 mg/dLVery High Triglyceride: greater than or equal to 5OO mg/dL Cholesterol 201(H) <200 mg/dL [facility] Comment:Desirable Cholestero l: less than 200 mg/dLBorderline High Cholesterol: 200-239 mg/dLHigh Cholesterol: greater than 239 mg/dL LDL Cholesterol Calculated 125(H) <100 mg/dL [facility] Comment:Desirable LDL: less than 100 mg/dLNear Optimal/Above Optimal LDL: 110- 129 mg/dLBorderline High LDL: 130-159 mg/dLHigh LDL: 160-189 mg/dLVery High LDL: greater than or equal to 190 mg/dL HDL Cholesterol 55 >40 mg/dL [facility] Comment:Desirable HDL: great er than 40 mg/dL Note: This HDL assay may give artificially low results in patients with liver disease. Blood 11/04/2024 11:1 6 AM EDT 11/04/2024 11:16 AM EDT us Jeremy Granado MD LAB BLOOD ORDERABLES Fin al Result [facility] [address] [place] [address] [phone] * Hepatitis Panel, General (11/04/2024 11:16 AM EDT) Hepatitis A IgM Nonreactive Nonreactive [facility] Comment:IgM antibodies to IBRAHIM V not detected; does not exclude earlyacute or recovered HAV infection. ~Hepatitis B Surface Antibody REACTIVE Nonreactive [facility] Comment:REACTIVE: > 11.99 mI U/mL Hepatitis B Core Antibody Nonreactive Nonreactive [facility] Hepatitis C Antibody Nonreactive Nonreactive [facility] Comment:Antibodies to HCV no t detected; does not exclude early acuteHCV infection. Hepatitis B Surface Ag Negative Negative [facility] Blood 11/04/2024 11:1 6 AM EDT 11/04/2024 11:16 AM EDT us Jeremy Granado MD LAB BLOOD ORDERABLES Fin al Result [facility] [address] [place] [address] [phone] * (ABNORMAL) CBC auto differential (11/04/2024 11:16 AM EDT) Only the most recent of2 resultswithin the time period is included. White Blood Count 3.7(L) 4.8 - 10.8 X10*3/uL [facility] Red Blood Count 4.18(L) 4.20 - 5.50 X10*6/uL [facility] Hemoglobin 11.6(L) 12.0 - 16.0 g/dl [facility] Hematocrit 34.5(L) 37.0 - 47.0 % [facility] Mean Corpuscular Volume 82.5 80.0 - 98.0 fL [facility] Mean Corpuscular Hemoglobin 27.8 27.0 - 33.0 pg [facility] Mean Corpuscular HGB Conc 33.6 31.0 - 35.0 g/dl [facility] Red Cell Distribution Width 13.6 11.0 - 16.0 % [facility] Platelet Count 259 160 - 400 X10*3/uL [facility] Mean Platelet Volume 10.2 9.4 - 12.3 fL [facility] Neutrophils Percent Auto 51.5 45 - 73 % [facility] Imm Gran Pct Auto 0.5(H) 0.0 - 0.4 % [facility] Lymphocytes Percent Auto 30.4 20 - 40 % [facility] Monocytes Percent Auto 9.5 2 - 11 % [facility] Eosinophils Percent Auto 6.5(H) 0 - 4 % [facility] Basophils Percent Auto 1.6 0 - 2 % [facility] NRBC Pct Auto 0.0 0.0 - 0.2 /100WBC [facility] Neutrophils Absolute Auto 1.9(L) 2.0 - 8.3 x10*3/uL [facility] Imm Gran Abs Auto 0.02 0.00 - 0.03 X10*3/uL [facility] Lymphocytes Absolute Auto 1.1(L) 1.2 - 4.9 X10*3/uL [facility] Monocytes Absolute Auto 0.4 0.1 - 1.2 X10*3/uL [facility] Eosinophils Absolute Auto 0.2 0.0 - 0.4 X10*3/uL [facility] Basophils Absolute Auto 0.1 0.0 - 0.2 X10*3/uL [facility] NRBC Abs Auto 0.000 0.0 - 0.012 X10*3/uL [facility] 11/04/2024 11:1 6 AM EDT 11/04/2024 11:16 AM EDT us Generic External Data Provider LAB BLOOD ORDERAB LES Final Result [facility] [address] [place] [address] [phone] * DNA (ds) Antibody (11/04/2024 11:16 AM EDT) Anti DNA DS Antibody <1 IU/mL [facility] Comment:IU/mL Interpretation < or = 4 Negative 5-9 Indeterminate > or = 10 PositiveTHIS TEST WAS PERFORMED AT:[facility] [place] [phone] SWARTZ MD 11/04/2024 11:1 6 AM EDT 11/04/2024 11:16 AM EDT us Generic External Data Provider LAB BLOOD ORDERAB LES Final Result Performing Organization Address [facility] Co de Phone Number [facility] [address] [place] [address] [phone] * HIV-1/2 Antigen and Antibodies, Fourth Generation, with Reflexes (11/04/2024 11:16 AM EDT) HIV AB/AG Nonreactive Nonreactive [facility] Comment:HIV-1 p24 Ag and/or HIV-1/HIV-2 Ab not detected.A test result that is nonreactive does not exclude thepossibility of exposure to or infection with HIV-1 and/orHIV-2. Nonreactive results in this assay for individualswith prior exposure to HIV-1 and/or HIV-2 may be due toantigen and antibody levels that are below the limit ofdetection of this assay.The Cliq HIV Ag/Ab Combo assay result andsupplemental assay results should be interpreted inconjunction with the patient's clinical presentation,history and other laboratory results. If the results areinconsistent with clinical evidence, additional testing issuggested to confirm the result. Blood Venous blood specimen / Unknown 11/04/2024 11:16 AM EDT 11/04/2024 11:16 AM EDT us Jeremy Granado MD LAB BLOOD ORDERABLES Fin al Result Performing Organization Address [facility] Co de Phone Number [facility] [address] [place] [address] [phone] * (ABNORMAL) Sed Rate by Modified Dawnaren (11/04/2024 11:16 AM EDT) Erythrocyte Sedimentation Rate 34(H) 0 - 20 MM/HR [facility] Comment:Patients with polycy themia and many hemoglobin abnormalitiesmay have depressed sed rates whereas patients with anemiamay have elevated sed rates. 11/04/2024 11:1 6 AM EDT 11/04/2024 11:16 AM EDT us Generic External Data Provider LAB BLOOD ORDERAB LES Final Result Performing Organization Address [facility]/ZIP Co de Phone Number [facility] [address] [place] [address] [phone] * (ABNORMAL) Immunofixation, Serum (11/04/2024 11:16 AM EDT) IMMUNOGLOBULIN G 918 600 - 1540 mg/dL [facility] IMMUNOGLOBULIN A 385(A) 70 - 320 mg/dL [facility] Immunoglobulin M 87 50 - 300 mg/dL [facility] Comment:THIS TEST WAS PERFOR MED AT:[facility] [address] [phone] SWARTZ MD Immunofixation Result SEE NOTE [facility] Comment:Normal pattern. No m onoclonal proteins detected. 11/04/2024 11:1 6 AM EDT 11/04/2024 11:16 AM EDT Generic External Data Provider LAB BLOOD ORDERAB LES Final Result Performing Organization Address [facility] Co de Phone Number [facility] [address] [place] [address] [phone] * Complement Component C3c (11/04/2024 11:16 AM EDT) Complement C3 151 83 - 193 mg/dL [facility] Comment:THIS TEST WAS PERFOR MED AT:[facility] [id number] [place] [phone] SWARTZ MD 11/04/2024 11:1 6 AM EDT 11/04/2024 11:16 AM EDT us Generic External Data Provider LAB BLOOD ORDERAB LES Final Result Performing Organization Address [facility]/ZIP Co de Phone Number [facility] [address] [place] [address] [phone] * Complement Component C4c (11/04/2024 11:16 AM EDT) Complement C4 28 15 - 57 mg/dL [facility] Comment:THIS TEST WAS PERFOR MED AT:[facility] [place] [phone] SWARTZ MD 11/04/2024 11:1 6 AM EDT 11/04/2024 11:16 AM EDT us Generic External Data Provider LAB BLOOD ORDERAB LES Final Result Performing Organization Address [facility]/ZIP Co de Phone Number [facility] [address] [place] [phone] * C-reactive Protein (11/04/2024 11:16 AM EDT) Pathologist [facility] [place] C Reactive Protein 0.42 < or = 0.50 mg/dL [facility] 11/04/2024 11:1 6 AM EDT 11/04/2024 11:16 AM EDT Generic External Data Provider LAB BLOOD ORDERAB LES Final Result Performing Organization Address [facility]/ZIP Co de Phone Number [facility] [address] [place] [phone] * Protein, Total and Protein??Electrophoresis (11/04/2024 11:16 AM EDT) Prot Elec - Total Protein 7.3 6.1 - 8.1 g/dL [facility] Prot Elec - Albumin 4.3 3.8 - 4.8 g/dL [facility] Prot Elec - Alpha1 0.3 0.2 - 0.3 g/dL [facility] Prot Elec - Alpha2 0.9 0.5 - 0.9 g/dL [facility] Prot Elec - Beta 1 0.5 0.4 - 0.6 g/dL [facility] Prot Elec - Beta 2 0.4 0.2 - 0.5 g/dL [facility] Prot Elec - Gamma 0.9 0.8 - 1.7 g/dL [facility] PES - Abn Protein Band 1 TNP [facility] PES-Abn Protein Band 2 TNP [facility] PES-Abn Protein Band 3 [facility] Prot Elec - Interpretation SEE NOTE [facility] Comment:Normal Serum Protein Electrophoresis Pattern.No abnormal protein bands (M-protein) detected.THIS TEST WAS PERFORMED AT:[facility] [place] [phone] SWARTZ MD 11/04/2024 11:1 6 AM EDT 11/04/2024 11:16 AM EDT us Generic External Data Provider LAB BLOOD ORDERAB LES Final Result Performing Organization Address [facility]/ZIP Co de Phone Number [facility] [address] [place] [phone] * PTH, Intact Without Calcium (11/04/2024 11:16 AM EDT) Parathyroid Hormone, Intact 52.6 8.7 - 77.1 pg/mL [facility] Blood Venous blood specimen / Unknown 11/04/2024 11:16 AM EDT 11/04/2024 11:16 AM EDT us Jeremy Granado MD LAB BLOOD ORDERABLES Fin al Result Performing Organization Address City/[facility]/ZIP Co de Phone Number [facility] [address] [place] [phone] * (ABNORMAL) Comprehensive Metabolic Panel (11/04/2024 11:16 AM EDT) Only the most recent of2 resultswithin the time period is included. Sodium 145 135 - 145 mmol/L [facility] Potassium 3.6 3.3 - 5.1 mmol/L [facility] Chloride 109(H) 96 - 108 mmol/L [facility] Carbon Dioxide 29 22 - 29 mmol/L [facility] Anion Gap 11(L) 12 - 20 [facility] Urea Nitrogen (BUN) 15 9 - 16 mg/dL [facility] Creatinine, Serum 0.60 0.5 - 1.4 mg/dL [facility] Estimated Glomerular Filt Rate >60 [facility] Comment:Chronic Kidney Disea se: Estimated GFR < 60 mL/min/1.16m2Xpgbpw Kidney Disease: Estimated GFR < 15 mL/min/1.73m2 Glucose 85 60 - 115 mg/dL [facility] Calcium 9.5 8.4 - 10.2 mg/dL [facility] Bilirubin, Total 0.7 0.0 - 1.0 mg/dL [facility] Aspartate Amino Transferase 22 5 - 31 U/L [facility] Alanine Aminotransferase 12 0 - 31 U/L [facility] Total Protein 7.4 6.5 - 8.0 g/dL [facility] Albumin Level 4.6 3.5 - 5.0 g/dL [facility] Alkaline Phosphatase 50 39 - 117 U/L [facility] 11/04/2024 11:1 6 AM EDT 11/04/2024 11:16 AM EDT us Generic External Data Provider LAB BLOOD ORDERAB LES Final Result [facility] [address] [place] [phone] * Protein Creatinine Ratio, Urine (11/04/2024 11:02 AM EDT) Creatinine, Urine 65.45 mg/dL [facility] Protein, Total, Random Urine <7 <12 mg/dL [facility] Protein/Creatin ine Ratio, Ur TNP <0.2 [facility] Comment:Unable to calculate urine protein creatinine ratio due tolow creatinine or protein result. 11/04/2024 11:0 2 AM EDT 11/04/2024 11:44 AM EDT us Generic External Data Provider LAB URINE ORDERAB LES Final Result Performing Organization Address [facility] Co de Phone Number [facility] [address], [place] [phone] * Urinalysis Complete (11/04/2024 11:02 AM EDT) Color Urine Yellow [facility] Appearance Urine Clear [facility] PH 5.5 5.0 - 9.0 [facility] Glucose Urine UA Negative Negative mg/dL [facility] Urine Blood Negative Negative [facility] Specific Huffman - Urine 1.010 1.005 - 1.025 [facility] Urine Protein Negative Neg-Trace mg/dL [facility] Urine Ketones Negative Negative mg/dL [facility] Nitrite Urine Negative Negative [facility] Leukocyte Esterase Urine Negative Negative [facility] RBC Urine 0-2 0 - 2 /HPF [facility] Urine WBC 0-5 0 - 5 /HPF [facility] Urine Squamous Epithelial Cell 0-2 0 - 2 /HPF [facility] Urine Bacteria None Seen None Seen [facility] Hyaline Casts, Urine 0-2 0 - 2 /LPF [facility] 11/04/2024 11:0 2 AM EDT 11/04/2024 11:44 AM EDT us Generic External Data Provider LAB URINE ORDERAB LES Final Result Performing Organization Address [facility] Co de Phone Number [facility] [address] [place] [phone] * BI Mammogram Screening Tomosynthesis Bilateral (07/21/2024 2:52 PM EDT) Anatomical Region Laterality Modality Breast Bilateral Mammography 07/21/2024 2:52 PM EDT Narrative 07/27/2024 7:20 PM EDT [facility] [address] [place] [id number] Mammography Report Signed Patient: Nicolasa Reich MR#: [id number] : 1955 Acct:[id number] Age/Sex: 68 / F ADM Date: 07/21/24 Loc: [facility].MAMMO Attending Dr: Juan Jose Castañeda NP Ordering Physician: JUAN JOSE CASTAÑEDA NP Results: 1Negative Date of Service: 07/21/24 Follow Up: 1 Year From Orig inal Mammogram Procedure(s): MM tomosynthesis screening BI Accession Number(s): [id number] cc: Jeremy Granado MD; JUAN JOSE CASTAÑEDA [...] 07/27/24 1917 DD/ 1452 TD/TT: 07/21/24 1512 Schedule Checker: Procedure Note Donotuseinterpreter, Image - 07/27/2024 [facility] [address] [place] [address] [address], EDMUND [id number] Mammography Report Signed Patient: Nicolasa ReichMR#: [id number] : 1955cct:[id number] Age/Sex: 68 / FADM Date: 07/21/24 Loc: HO.MAMMO Attending Dr: Juan Jose Castañeda NP Ordering Physician: JUAN JOSE CASTAÑEDA NPResults: 1Negative Date of Service: 07/21/24Follow Up: 1 Year From Orig inal Mammogram Procedure(s): MM tomosynthesis screening BI Accession Number(s): [id number] cc: Jeremy Granado MD; JUAN JOSE CASTAÑEDA [...] 07/27/24 1917 DD/ 1452 TD/TT: 07/21/24 1512 Schedule Checker: Juan Jose Castañeda ANP IMG BI PROCEDURES Edited Result - Final * Hm Colonoscopy (04/16/2020) Colonoscopy Normal Normal Narrative Taya Vargas - 04/16/2020 See legacy note on 05/03/2020. Repeat in 5 years Historical Provider HEALTH MAINTENANCE Final Result from Last 3 Months or Most Recently Relevant to Health Maintenance [place] [facility] DUAL COMPLETE D[place] AD[place] Care Teams Battery Test Engineer Relationship Specialty Start Date End Date Jeremy Granado MD [address] [place] [address] PCP - General Internal Medicine 09/08/24
--- OUTSIDE RECORDS SUMMARY | 2024-12-11 18:12 | XMS_ITS | Encounter Summary ---
Author Organization [employer] [facility] Address [address] [facility] 7t [place] [address] Care Team Providers Care Hunter Guide Name Role Phone Rosanne Ayala Primary Care Provider [phone] Rosanne Ayala ANP Primary Care Provider [phone] Lilian Granado MD Primary Care Provider + Encounter Details Date Type Department Care Team (Latest Contact Info) Description 05/20/2020 Abstract [facility] Dental, Provider, DDS Social History Tobacco [...] 2:00 PM EST Office Visit [facility] [address] [place] [address] Jyotsna Patel, OD [address] [place] [address] documented as of this encounter Visit Diagnoses Not on filedocumented in this encounter Care Teams Hunter Guide Relationship Specialty Start Date End Date Rosanne Ayala ANP [address] [place] [address] PCP - General Family Medicine 01/23/20 09/04/24 Rosanne Ayala ANP [address] [place] [address] PCP - General Family Medicine 09/05/24 09/07/24 Lilian Granado MD [address] [place] [address] PCP - General Internal Medicine 09/08/24 documented as of this encounter
--- OUTSIDE RECORDS SUMMARY | 2024-12-11 18:12 | XMS_ITS | Encounter Summary ---
Author Organization [employer] [facility] Address [address] [facility] 7t [place] [address] Care Team Providers Care Finish Machine Tender Name Role Phone Rosanne Ayala Primary Care Provider [phone] Rosanne Ayala ANP Primary Care Provider [phone] Lilian Granado MD Primary Care Provider + Encounter Details Date Type Department Care Team (Latest Contact Info) Description 06/30/2021 Abstract [facility] Dental, Provider, DDS Social History Tobacco [...] Description 02/24/2025 2:00 PM EST Office Visit [facility] [address] [place] [address] Jyotsna Patel, OD [address] [place] [address] documented as of this encounter Visit Diagnoses Not on filedocumented in this encounter Care Teams Finish Machine Tender Relationship Specialty Start Date End Date Rosanne Ayala ANP [address] [place] [address] PCP - General Family Medicine 01/23/20 09/04/24 Rosanne Ayala ANP [address] [place] [address] PCP - General Family Medicine 09/05/24 09/07/24 Lilian Granado MD [address] [place] [address] PCP - General Internal Medicine 09/08/24 documented as of this encounter
--- OUTSIDE RECORDS SUMMARY | 2024-12-11 18:12 | XMS_ITS ---
Author Name Liudmila VAZQUEZ, MRS. Chang Address [address] [place] [address] Phone [phone] [facility] Care Team Providers Care Showroom Sales Consultant Name Role Phone Charlene Nur Unavailable [phone] JANET COSTELLO Unavailable [phone] SADIA CRUZ Unavailable [phone] Reason for Referral Not Available Allergies, adverse reactions, alerts Allergen Type Reaction Severity Status Onset Date Clindamycin Allergy to substance (disorder) Unknown Active N/A Broccoli Extract Allergy to substance (disorder) Throat Tightness Unknown Active N/A spinach Allergy to substance (disorder) Throat Tightness Unknown Active N/A Pheba Allergy to substance (disorder) Throat Tightness Unknown [...] MCG Tab TAKE 1 TABLET BY MO UTH EVERY MORNING 2024-01-28 No Data Available Ibuprofen [...] 95 for video, modifier 93 for phone [facility] [place] 09/16/2024 Age-related osteoporosis [...] 95 for video, modifier 93 for phone [facility] New patient 15-29min; 1 minor problem; add modifier 95 for video, modifier 93 for phone [facility] 09/16/20[place] New patient 15-29min; 1 minor problem; add modifier 95 for video, modifier 93 for phone [facility] 09/16/2024 Vital Signs Date of Collection Vitals 2024-09-16 11:45:29 Height - 149.86 cmWe ight - 48.53 kgBody Mass Index (BMI) - 21.61 kg/m2BP Diastolic - 62.0 mm[Hg]BP Systolic - 138.0 mm[Hg]Pain Scale - 2.0 {score} Social History Social History Social History Observation Description Effec tive Time Current Smoking Status Former smoker 6 Sex Female History of Procedures Procedures Service Procedure code Service date Servicing provider Phone# New patient 15-29min; 1 minor problem; add modifier 95 for video, modifier 93 for phone [phone] No Data Available No Data Availa [...] disorders or urgent problems. ntroductory visit with [facility] to establish care. Today, patient as chief complaint of: establishing care.Visit completed via:[x] audio and video; [ ] audio only 2024-09-16 Concerns for today's visit: 2024-09-16 Concerns for today's visit: Denies any concerns 2024-09-16 Most recent hospital stay or ER visit: 2024-09-16 Most recent hospital stay or ER visit: no recent Ed or hospital visits
== END 2024-12-12 11:59 | disposition home or self-care (01) ==
PROVIDERS: PCP Nurse Practitioner Primary Care; Visit Provider Student in an Organized Health Care Education/Training Program
DX: M35.01 Sjogren syndrome with keratoconjunctivitis (principal); M81.0 Age-related osteoporosis without current pathological fracture; M19.011 Primary osteoarthritis, right shoulder; M19.012 Primary osteoarthritis, left shoulder
CPT/HCPCS: 20605; 99215

== ENCOUNTER → 2024-12-11 15:09 | Outpatient (BNVA) | payer OTHER, SELFPAY | PROVIDERS: Visit Provider Student in an Organized Health Care Education/Training Program | DX: M35.1 Other overlap syndromes (principal); M81.0 Age-related osteoporosis without current pathological fracture; M19.011 Primary osteoarthritis, right shoulder; M19.012 Primary osteoarthritis, left shoulder | CPT/HCPCS: 20605; 99212; J2003; J3301 ==

== ENCOUNTER 2025-01-07 12:40 | Outpatient (REF) | payer OTHER, SELFPAY ==
--- NOTE | ~2025-01-07 | US_ITS ---
EXAMINATION: US RETROPERITONEAL LIMITED (RENAL ONLY) CLINICAL INFORMATION: HYDRO. COMPARISON: June 20, 2024 TECHNIQUE: Real-time ultrasound kidneys using grayscale technique. FINDINGS: RIGHT KIDNEY: 10 x 5 x 3 cm (SAG x AP x TRV). Normal echotexture. Renal cortical thickness is normal. No gross hydronephrosis. Probable extrarenal pelvis. No solid or cystic lesion. LEFT KIDNEY: 10 x 5 x 4 cm (SAG x AP x TRV). Normal echotexture. Renal cortical thickness is normal. No hydronephrosis. 6 mm anechoic lesion at the corticomedullary junction of the lower pole without septations or nodular component. US/US renal BI IMPRESSION: No hydronephrosis or gross nephrolithiasis. 6 mm cyst, left kidney. Electronically signed by: Vishal Dumont MD 01/07/2025 01:48 PM EST
--- OUTSIDE RECORDS SUMMARY | 2025-01-07 14:54 | XMS_ITS | Encounter Summary ---
Author Organization [employer] Address [address] [facility] 7t [place] [address] Care Team Providers Care Flight Paramedic Name Role Phone Lilian Granado MD Primary Care Provider + Encounter Details Date Type Department Care Team (Late st Contact Info) Description 01/07/2025 Orders Only [facility] [address] [place] [address] Lilian Granado MD [address] [place] [address] Social History Tobacco Use Types Packs/Day Years Used Date Smoking Tobacco: Never Passive Smoke Exposure: Never Smokeless Tobacco: Never Alcohol Use Standard Drinks/Week Comments Never 0 (1 standard drink = 0.6 oz pur e alcohol) PHQ-2 Answer Date Recorded Patient Health Questionnaire-2 Score 0 02/07/2022 Housing Stability Answer Date Recorded What is your housing situation today? I have elsaelena espinoza 09/08/[address] you [...] Description 02/24/2025 2:00 PM EST Office Visit [facility] [address] [place], [place] [id number] TarkaJyotsna, OD [address] [place] [address] documented as of this encounter Procedures Procedure Name Priority Date/Time Associated Diagnosis Comments US RENAL COMPLETE Routine 01/07/2025 1:0 0 PM EST documented in this encounter Results * US Renal Complete (01/07/2025 1:00 PM EST) Anatomical Region Laterality Modality Kidney Ultrasound 01/07/2025 1:00 PM EST Narrative 01/07/2025 1:51 PM EST [address] [address] Ultrasound Report Signed Patient: Nicolasa Reich MR#: [id number] : 1955 Acct:[id number] Age/Sex: 69 / F ADM Date: 01/07/25 Loc: HO.US Attending Dr: Lilian Granado MD Ordering Physician: Lilian Granado MD Date of Service: 01/07/25 Procedure(s): US renal BI Accession Number(s): [id number] cc: Lilian Granado MD; JUAN JOSE CASTAÑEDA NP Reason for Exam: HYDRO EXAMINATION: US RETROPERITONEAL LIMITED (RENAL ONLY) CLINICAL INFORMATION: HYDRO. COMPARISON: June 20, 2024 TECHNIQUE: Real-time ultrasound kidneys using grayscale technique. FINDINGS: RIGHT KIDNEY: 10 x 5 x 3 cm (SAG x AP x TRV). Normal echotexture. Renal cortical thickness is normal. No gross hydronephrosis. Probable extrarenal pelvis. No solid or cystic lesion. LEFT KIDNEY: 10 x 5 x 4 cm (SAG x AP x TRV). Normal echotexture. Renal cortical thickness is normal. No hydronephrosis. 6 mm anechoic lesion at the corticomedullary junction of the lower pole without septations or nodular component. US/US renal BI IMPRESSION: No hydronephrosis or gross nephrolithiasis. 6 mm cyst, left kidney. Electronically signed by: Vishal Dumont MD 01/07/2025 01:48 PM EST Dictated By: Vishal Powell MD Signed By: <Electronically signed by Vishal Rausch MD in OV> 01/07/25 1348 DD/ 1300 TD/TT: 01/07/25 1330 Personal Fitness Manager: Procedure Note Donotuseinterpreter, Image - 01/07/2025 [place] [address] Ultrasound Report Signed Patient: Nicolasa ReichMR#: [id number] : 4Acct:[id number] Age/Sex: 69 / FADM Date: 01/07/25 Loc: HO.US Attending Dr: Lilian Granado MD Ordering Physician: Lilian Granado MD Date of Service: 01/07/25 Procedure(s): US renal BI Accession Number(s): [id number] cc: Lilian Granado MD; JUAN JOSE CASTAÑEDA NP Reason for Exam: HYDRO EXAMINATION: US RETROPERITONEAL LIMITED (RENAL ONLY) CLINICAL INFORMATION: HYDRO. COMPARISON: June 20, 2024 TECHNIQUE: Real-time ultrasound kidneys using grayscale technique. FINDINGS: RIGHT KIDNEY: 10 x 5 x 3 cm (SAG x AP x TRV). Normal echotexture. Renal cortical thickness is normal. No gross hydronephrosis. Probable extrarenal pelvis. No solid or cystic lesion. LEFT KIDNEY: 10 x 5 x 4 cm (SAG x AP x TRV). Normal echotexture. Renal cortical thickness is normal. No hydronephrosis. 6 mm anechoic lesion at the corticomedullary junction of the lower pole without septations or nodular component. US/US renal BI IMPRESSION: No hydronephrosis or gross nephrolithiasis. 6 mm cyst, left kidney. Electronically signed by: Vishal Dumont MD 01/07/2025 01:48 PM EST RP Dictated By: Vishal Powell MD Signed By: <Electronically signed by Vishal Rausch MDin OV> 01/07/25 1348 DD/ 1300 TD/TT: 01/07/25 1330 Personal Fitness Manager: us Lilian Granado MD IMG US PROCEDURES Final Result documented in this encounter Visit Diagnoses Not on filedocumented in this encounter Care Teams Flight Paramedic Relationship Specialty Start Date End Date Lilian Granado MD [address] [place] [address] PCP - General Internal Medicine 09/08/24 documented as of this encounter
--- OUTSIDE RECORDS SUMMARY | 2025-01-07 14:54 | XMS_ITS | Encounter Summary ---
Author Organization [employer] Address [address] [facility] 7t [place] [address] Care Team Providers Care Direct Chill Casting Operator Name Role Phone Rosanne Ayala Primary Care Provider Rosanne Ayala Primary Care Provider [phone] Lilian Granado MD Primary Care Provider + Reason for Visit * Reason Onset Date Comments appt with Dr. Negron 11/27/2022 Encounter Details Date Type Department Care Team ([facility] st Contact Info) Description 11/27/2022 Telephone [facility] [address] [place] [address] Moris Negron, DMD [address] [place] [address] Negron Social History Tobacco [...] Description 02/24/2025 2:00 PM EST Office Visit [facility] [address] [place] [address] TarkaJyotsna, OD [address] [place] [address] documented as of this encounter Visit Diagnoses Not on filedocumented in this encounter Care Teams Direct Chill Casting Operator Relationship Specialty Start Date End Date Rosanne Ayala ANP [address] [place] [address] PCP - General Family Medicine 01/23/20 09/04/24 Rosanne Ayala ANP [address] [place] [address] PCP - General Family Medicine 09/05/24 09/07/24 Lilian Granado MD [address] [place] [address] PCP - General Internal Medicine 09/08/24 documented as of this encounter
--- OUTSIDE RECORDS SUMMARY | 2025-01-07 14:54 | XMS_ITS | Clinical Summary ---
Author Organization [facility] Address [address] [place] [address] Phone Care Team Providers Care Senior Technical Support Engineer Name Role Phone Brian Rodas MD Primary Care Provider + Allergies Active Allergy Reactions Criticality Noted Date Comments Broccoli Throat Tightness Medium 04/20/2021 Clindamycin 05/20/2020 Spinach Throat Tightness Medium 04/20/2021 Medications prednisoLONE acetate (PRED FORTE) 1 % ophthalmic suspension Place 1 % into each eye daily. 3 Active VITAMIN D3 50 mcg (2,000 unit) capsuleIndicatio ns:Age-related osteoporosis without current pathological fracture TAKE 1 CAPSULE BY MOUTH EVERY DAY 30 capsule 4 Active SYNTHROID 50 mcg tabletIndication s:Hypothyroidism , unspecified type Take 1 tablet (50 mcg total) by mouth every morning. 90 tablet 3 4 Active magnesium oxide 400 mg magnesium Tab Take 1 tablet by mouth daily. Active alendronate (FOSAMAX) 70 MG tabletIndication s:Age-related osteoporosis without current pathological fracture Take 1 tablet (70 mg total) by mouth every 7 days. Take in the morning with a full glass of water, on an empty stomach, and do not take anything else by mouth or lie down for the next 30 min. 12 tablet 4 4 Active calcium carbonate (OS-KAYLIE) 1,250 mg (500 mg elemental) tabletIndication s:Age-related osteoporosis without current pathological fracture Take 1 tablet (1,250 mg total) by mouth 2 (two) times a day with meals. 180 tablet 3 5 Active calcium carbonate (OS-KAYLIE) 1,250 mg (500 mg elemental) tabletIndication s:Age-related osteoporosis without current pathological fracture take 1 tablet by mouth twice daily with meals 180 tablet 3 4 12/16/19 25 Discontinu ed(Reorder ) Active Problems Problem Noted Date Diagnosed Date Age-related osteoporosis wit holiz current pathological fracture 09/29/2019 Assessment & Plan [...] I do not recommend serial ultrasound monitoring. Encounters Date Type Department Care Team Description 12/15/2024 Refill [facility] [address] [place] [address] [place] [address] Maru Mirza MA from Last 3 Months Family History Medical History Relation Comments Emphysema [...] 10:30 AM EST Office Visit [facility] [address] Janet Torres DO [address] [place] [address] [email or web address] Health Maintenance Due Date Last Done Comments [...] EST) TSH 1.21 0.27 - 4.20 uIU/mL [facility] Blood 01/18/2024 10:5 7 AM EST 01/18/2024 11:12 AM EST us Janet Torres DO LAB BLOOD BKR ORDERABLES Final R esult [facility] [address] [place] [address] * BD DXA AXIAL (SPINE) WITH HIP (11/09/2023 1:31 PM EDT) Anatomical Region Laterality Modality Bone Density Bone Density 11/09/2023 1:28 PM EDT Impressions 11/09/2023 3:00 PM EDT Interpretation: Osteopenia. Narrative 11/09/2023 3:00 PM EDT Referred By: JANET TORRES Indications: Osteoporosis Scanner: Sosei A with serial# of [id number] located at [facility] Bone Density Scan (DXA) 11/09/23 Details of [...] -2.5), or Osteoporosis (T-score <= -2.5). At [facility], T-scores are compared to peak bone density [...] Referred By: JANET TORRES Indications: Osteoporosis Scanner: Sosei A with serial# of [id number] located at [facility] Bone Density Scan (DXA) 11/09/23 Details of prior DXA scans are available by clicking View Image BMD T- Z- Skeletal Site gm/cm2 score score BMD Change Since Prior Scan ------ ----- PA Spine (L1-L4) 0.939 -1.00 1.10 0.054 (6.1%)* since09/13/2021 Total Hip (Left) 0.716 -1.90 -0.40 0.007 (stable) since09/13/2021 Femoral Neck (Left) 0.588 -2.40 -0.70 0.023 (stable) since09/13/2021 ------ ----- * Denotes significant change when [...] -2.5), or Osteoporosis (T-score <= -2.5). At [facility], T-scores are compared to peak bone density [...] on 11/09/2023 15:00:54 IMPRESSION: Interpretation: Osteopenia. Janet ESTES BD BONE DENSITY DEXA Final R esult from Last 3 Months or Most Recently Relevant to Health Maintenance Insurance MEDICARE PART A & B Member Subscriber Plan / Payer (Ef fective 2018-Present) Name:Nicolasa Reich Member ID:[id number] Relation to Subscriber:Self Name:Nicolasa Reich Subscriber ID:[id number] Payer ID:[id number] Group ID:Not on file Type:Medicare Address: [employer] [id number] [place] A & [facility] [place]ALTH MEDICARE PART A & [place] [facility] [place] B [facility] Care Teams Senior Technical Support Engineer Relationship Specialty Start Date End Date Brian Rodas MD [address] [place] [address] PCP - General Internal Medicine 04/17/19 Additional Source Comments The information contained in this document represents components of the legal health record. It is not the complete legal health record.[facility]
--- OUTSIDE RECORDS SUMMARY | 2025-01-07 14:54 | XMS_ITS | Encounter Summary ---
Author Organization [employer] Address [address] [facility] 7t [place] [address] Care Team Providers Care Chief Petroleum Engineer Name Role Phone Rosanne Ayala Primary Care Provider Rosanne Ayala Primary Care Provider [phone] Lilian Granado MD Primary Care Provider + Encounter Details Date Type Department Care Team ([facility] Contact Info) Description 09/06/2022 Orders Only [facility] [address] [place], [place] [phone] Mary Gilman LPN Social History Tobacco Use [...] Upcoming Encounters Date Type Department Care Team ([facility] Contact Info) Description 02/24/2025 2:00 PM EST Office Visit [facility] [address] [place], [place] [address] Lucreciamaureen Jyotsna, OD [address] [place] [address] documented as of this encounter Visit Diagnoses Not on filedocumented in this encounter Care Teams Chief Petroleum Engineer Relationship Specialty Start Date End Date Rosanne Ayala ANP [address] [place] [address] PCP - General Family Medicine 01/23/20 09/04/24 Rosanne Ayala ANP [address] [place] [address] PCP - General Family Medicine 09/05/24 09/07/24 Lilian Granado MD [address] [place] [address] PCP - General Internal Medicine 09/08/24 documented as of this encounter
--- OUTSIDE RECORDS SUMMARY | 2025-01-07 14:54 | XMS_ITS ---
Author Name Liudmila VAZQUEZ, MRS. Chang Address [address] [place] [address] Phone [phone] [facility] Care Team Providers Care Supplier Quality Engineering Manager Name Role Phone Charlene Nur Unavailable [phone] JANET COSTELLO Unavailable [phone] SADIA CRUZ Unavailable [phone] Reason for Referral Not Available Allergies, adverse reactions, alerts Allergen Type Reaction Severity Status Onset Date Clindamycin Allergy to substance (disorder) Unknown Active N/A Broccoli Extract Allergy to substance (disorder) Throat Tightness Unknown Active N/A spinach Allergy to substance (disorder) Throat Tightness Unknown Active N/A [place] Allergy to substance (disorder) Throat Tightness Unknown [...] 95 for video, modifier 93 for phone [facility] [place] 09/16/2024 Age-related osteoporosis [...] 95 for video, modifier 93 for phone [facility] [place]/16/2024 New patient 15-29min; 1 minor problem; add modifier 95 for video, modifier 93 for phone [facility] [place] 09/16/2024 New patient 15-29min; 1 minor problem; add modifier 95 for video, modifier 93 for phone [facility] [place] 09/16/2024 Vital Signs Date of Collection Vitals 2024-09-16 11:45:29 Height - 149.86 cmWe ight - 48.53 kgBody Mass Index (BMI) - 21.61 kg/m2BP Diastolic - 62.0 mm[Hg]BP Systolic - 138.0 mm[Hg]Pain Scale - 2.0 {score} Social History Social History Social History Observation Description Effec tive Time Current Smoking Status Former smoker 0 3 Sex Female History of Procedures Procedures Service Procedure code Service date Servicing provider Phone# New patient 15-29min; 1 minor problem; add modifier 95 for video, modifier 93 for phone [phone] No Data Available No Data Availa [...] disorders or urgent problems. ntroductory visit with [facility] to establish care. Today, patient as chief complaint of: establishing care.Visit completed via:[x] audio and video; [ ] audio only 2024-09-16 Concerns for today's visit: 2024-09-16 Concerns for today's visit: Denies any concerns 2024-09-16 Most recent hospital stay or ER visit: 2024-09-16 Most recent hospital stay or ER visit: no recent Ed or hospital visits
--- OUTSIDE RECORDS SUMMARY | 2025-01-07 14:54 | XMS_ITS | Clinical Summary ---
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 She [...] Continue levothyroxine 50 mg and follow-up with housing director. Low back pain with radiation 05/19/2024 [...] + D Check PTH levels Follow-up with housing director Age-related osteoporosis darron hunter current pathological fracture [...] Encounters Date Type Department Care Team Description 01/07/2025 Orders Only [facility] [address] [place] [address] Jeremy Graando MD 11/10/2024 9:00 AM EDT Office Visit [facility] [address] [place], [place] [phone] Jeremy Granado MD Acquired hydronephrosis (Primary Dx); Adjustment disorder with anxiety; Leukopenia, unspecified type; Nevus; External hemorrhoids; Encounter for immunization 11/10/2024 Travel 11/10/2024 Telephone [facility] [address] [place], [place] [phone] Jeremy Granado MD Chart prep 11/04/2024 Telephone [facility] [address] [place], [place] [phone] Jeremy Granado MD R/S from 11/1411/04/2024 Orders [...] Description 02/24/2025 2:00 PM EST Office Visit [facility] OPTOMETRY [address] [place] [address] Jyotsna Patel, OD [address] [place] [address] Health Maintenance Due Date Last Done Comments [...] 25 SDOH Screening 09/08/2025 09/08/2024 Tobacco Screening 11/10/2025 [...] COMPLETE Routine 01/07/2025 1:0 0 PM EST IMMUNOFIXATION, SERUM Routine 11/04/2024 11:16 AM EDT [...] Relevant to Health Maintenance Results * US Renal Complete (01/07/2025 1:00 PM EST) Anatomical Region Laterality Modality Kidney Ultrasound 01/07/2025 1:00 PM EST Narrative 01/07/2025 1:51 PM EST [address] [address] Ultrasound Report Signed Patient: Nicolasa Reich MR#: [id number] : 1955 Acct:[id number] Age/Sex: 69 / F ADM Date: 01/07/25 Loc: HO.US Attending Dr: Jeremy Granado MD Ordering Physician: Jeremy Granado MD Date of Service: 01/07/25 Procedure(s): US renal BI Accession Number(s): [id number] cc: Jeremy Granado MD; JUAN JOSE CASTAÑEDA NP Reason [...] 01/07/25 1348 DD/ 1300 TD/TT: 01/07/25 1330 Adjunct Political Science Instructor: Procedure Note Donotuseinterpreter, Image - 01/07/[address] [address] Ultrasound Report Signed Patient: Nicolasa ReichMR#: [id number] : 1955cct:[id number] Age/Sex: 69 / FADM Date: 01/07/25 Loc: HO.US Attending Dr: Jeremy Granado MD Ordering Physician: Jeremy Granado MD Date of Service: 01/07/25 Procedure(s): US renal BI Accession Number(s): [id number] cc: Jeremy Granado MD; JUAN JOSE CASTAÑEDA NP Reason [...] 01/07/25 1348 DD/ 1300 TD/TT: 01/07/25 1330 Adjunct Political Science Instructor: us Jeremy Granado MD IMG US PROCEDURES Final Result * Syphilis Screen (11/04/2024 11:16 AM EDT) Syphilis Screen Nonreactive Nonreactive [facility] Blood 11/04/2024 11:1 6 AM EDT 11/04/2024 11:16 AM EDT us Jeremy Granado MD LAB BLOOD ORDERABLES Fin al Result Performing Organization Address [facility] Co de Phone Number [facility] [address] [place] [address] [phone] * (ABNORMAL) Lipid Panel with Reflex to Direct LDL (11/04/2024 11:16 AM EDT) Triglycerides 107 <150 mg/dL [facility] Comment:Desirable Triglyceri de: less than 150 mg/dLBorderline High Triglyceride 150-199 mg/dLHigh Triglyceride: 200-499 mg/dLVery High Triglyceride: greater than or equal to 5OO mg/dL Cholesterol 201(H) <200 mg/dL [facility] Comment:Desirable Cholestero l: less than 200 mg/dLBorderline High Cholesterol: 200-239 mg/dLHigh Cholesterol: greater than 239 mg/dL LDL Cholesterol Calculated 125(H) <100 mg/dL [facility] Comment:Desirable LDL: less than 100 mg/dLNear Optimal/Above Optimal LDL: 110- 129 mg/dLBorderline High LDL: 130-159 mg/dLHigh LDL: 160-189 mg/dLVery High LDL: greater than or equal to 190 mg/dL HDL Cholesterol 55 >40 mg/dL [facility] Comment:Desirable HDL: great er than 40 mg/dL Note: This HDL assay may give artificially low results in patients with liver disease. Blood 11/04/2024 11:1 6 AM EDT 11/04/2024 11:16 AM EDT Jeremy Granado MD LAB BLOOD ORDERABLES Fin al Result Performing Organization Address [facility]/ZIP Co de Phone Number [facility] [address] [place] [address] [phone] * Hepatitis Panel, General (11/04/2024 11:16 AM EDT) Hepatitis A IgM Nonreactive Nonreactive [facility] Comment:IgM antibodies to IBRAHIM V not detected; does not exclude earlyacute or recovered HAV infection. ~Hepatitis B Surface Antibody REACTIVE Nonreactive [facility] Comment:REACTIVE: > 11.99 mI U/mL Hepatitis B Core Antibody Nonreactive Nonreactive [facility] Hepatitis C Antibody Nonreactive Nonreactive [facility] Comment:Antibodies to HCV no t detected; does not exclude early acuteHCV infection. Hepatitis B Surface Ag Negative Negative [facility] Blood 11/04/2024 11:1 6 AM EDT 11/04/2024 11:16 AM EDT us Jeremy Granado MD LAB BLOOD ORDERABLES Fin al Result [facility] [address] [place], [place] [phone] * (ABNORMAL) CBC auto differential (11/04/2024 11:16 AM EDT) Only the most recent of2 resultswithin the time period is included. White Blood Count 3.7(L) 4.8 - 10.8 X10*3/uL [facility] Red Blood Count 4.18(L) 4.20 - 5.50 X10*6/uL [facility] Hemoglobin 11.6(L) 12.0 - 16.0 g/dl [facility] Hematocrit 34.5(L) 37.0 - 47.0 % [facility] Mean Corpuscular Volume 82.5 80.0 - 98.0 fL [facility] Mean Corpuscular Hemoglobin 27.8 27.0 - 33.0 pg [facility] Mean Corpuscular HGB Conc 33.6 31.0 - 35.0 g/dl [facility] Red Cell Distribution Width 13.6 11.0 - 16.0 % [facility] Platelet Count 259 160 - 400 X10*3/uL [facility] Mean Platelet Volume 10.2 9.4 - 12.3 fL [facility] Neutrophils Percent Auto 51.5 45 - 73 % [facility] Imm Gran Pct Auto 0.5(H) 0.0 - 0.4 % [facility] Lymphocytes Percent Auto 30.4 20 - 40 % [facility] Monocytes Percent Auto 9.5 2 - 11 % [facility] Eosinophils Percent Auto 6.5(H) 0 - 4 % [facility] Basophils Percent Auto 1.6 0 - 2 % [facility] NRBC Pct Auto 0.0 0.0 - 0.2 /100WBC [facility] Neutrophils Absolute Auto 1.9(L) 2.0 - 8.3 x10*3/uL [facility] Imm Gran Abs Auto 0.02 0.00 - 0.03 X10*3/uL [facility] Lymphocytes Absolute Auto 1.1(L) 1.2 - 4.9 X10*3/uL [facility] Monocytes Absolute Auto 0.4 0.1 - 1.2 X10*3/uL [facility] Eosinophils Absolute Auto 0.2 0.0 - 0.4 X10*3/uL [facility] Basophils Absolute Auto 0.1 0.0 - 0.2 X10*3/uL [facility] NRBC Abs Auto 0.000 0.0 - 0.012 X10*3/uL [facility] 11/04/2024 11:1 6 AM EDT 11/04/2024 11:16 AM EDT us Generic External Data Provider LAB BLOOD ORDERAB LES Final Result [facility] [address] [place] [phone] * DNA (ds) Antibody (11/04/2024 11:16 AM EDT) Anti DNA DS Antibody <1 IU/mL [facility] Comment:IU/mL Interpretation < or = 4 Negative 5-9 Indeterminate > or = 10 PositiveTHIS TEST WAS PERFORMED AT:[employer] [place] [phone] SWARTZ MD 11/04/2024 11:1 6 AM EDT 11/04/2024 11:16 AM EDT us Generic External Data Provider LAB BLOOD ORDERAB LES Final Result Performing Organization Address [facility] Co de Phone Number [facility] [address] [place] [phone] * HIV-1/2 Antigen and Antibodies, Fourth Generation, with Reflexes (11/04/2024 11:16 AM EDT) HIV AB/AG Nonreactive Nonreactive [facility] Comment:HIV-1 p24 Ag and/or HIV-1/HIV-2 Ab not detected.A test result that is nonreactive does not exclude thepossibility of exposure to or infection with HIV-1 and/orHIV-2. Nonreactive results in this assay for individualswith prior exposure to HIV-1 and/or HIV-2 may be due toantigen and antibody levels that are below the limit ofdetection of this assay.The Auctomatic HIV Ag/Ab Combo assay result andsupplemental assay results should be interpreted inconjunction with the patient's clinical presentation,history and other laboratory results. If the results areinconsistent with clinical evidence, additional testing issuggested to confirm the result. Blood Venous blood specimen / Unknown 11/04/2024 11:16 AM EDT 11/04/2024 11:16 AM EDT us Jeremy Granado MD LAB BLOOD ORDERABLES Fin al Result Performing Organization Address [facility]/ZIP Co de Phone Number [facility] [address] [place] [phone] * (ABNORMAL) Sed Rate by Modified Dawnaren (11/04/2024 11:16 AM EDT) Erythrocyte Sedimentation Rate 34(H) 0 - 20 MM/HR [facility] Comment:Patients with polycy themia and many hemoglobin abnormalitiesmay have depressed sed rates whereas patients with anemiamay have elevated sed rates. 11/04/2024 11:1 6 AM EDT 11/04/2024 11:16 AM EDT us Generic External Data Provider LAB BLOOD ORDERAB LES Final Result Performing Organization Address City/[facility]/ZIP Co de Phone Number [facility] [address] [place] [phone] * (ABNORMAL) Immunofixation, Serum (11/04/2024 11:16 AM EDT) IMMUNOGLOBULIN G 918 600 - 1540 mg/dL [facility] IMMUNOGLOBULIN A 385(A) 70 - 320 mg/dL [facility] Immunoglobulin M 87 50 - 300 mg/dL [facility] Comment:THIS TEST WAS PERFOR MED AT:[employer] [place] [phone] SWARTZ MD Immunofixation Result SEE NOTE [facility] Comment:Normal pattern. No m onoclonal proteins detected. 11/04/2024 11:1 6 AM EDT 11/04/2024 11:16 AM EDT us Generic External Data Provider LAB BLOOD ORDERAB LES Final Result Performing Organization Address [facility] Co de Phone Number [facility] [address] [place] [phone] * Complement Component C3c (11/04/2024 11:16 AM EDT) Complement C3 151 83 - 193 mg/dL [facility] Comment:THIS TEST WAS PERFOR MED AT:[employer] [place] [phone] SWARTZ MD 11/04/2024 11:1 6 AM EDT 11/04/2024 11:16 AM EDT us Generic External Data Provider LAB BLOOD ORDERAB LES Final Result Performing Organization Address City/[facility]/ZIP Co de Phone Number [facility] [address] [place] [phone] * Complement Component C4c (11/04/2024 11:16 AM EDT) Complement C4 28 15 - 57 mg/dL [facility] Comment:THIS TEST WAS PERFOR MED AT:[employer] [place] [phone] SWARTZ MD 11/04/2024 11:1 6 AM EDT 11/04/2024 11:16 AM EDT Generic External Data Provider LAB BLOOD ORDERAB LES Final Result Performing Organization Address City/[facility]/ZIP Co de Phone Number [facility] [address] [place] [phone] * C-reactive Protein (11/04/2024 11:16 AM EDT) Pathologist [facility] C Reactive Protein 0.42 < or = 0.50 mg/dL [facility] 11/04/2024 11:1 6 AM EDT 11/04/2024 11:16 AM EDT Generic External Data Provider LAB BLOOD ORDERAB LES Final Result Performing Organization Address [facility]/ZIP Co de Phone Number [facility] [address] [place] [phone] * Protein, Total and Protein??Electrophoresis (11/04/2024 11:16 AM EDT) Prot Elec - Total Protein 7.3 6.1 - 8.1 g/dL [facility] Prot Elec - Albumin 4.3 3.8 - 4.8 g/dL [facility] Prot Elec - Alpha1 0.3 0.2 - 0.3 g/dL [facility] Prot Elec - Alpha2 0.9 0.5 - 0.9 g/dL [facility] Prot Elec - Beta 1 0.5 0.4 - 0.6 g/dL [facility] Prot Elec - Beta 2 0.4 0.2 - 0.5 g/dL [facility] Prot Elec - Gamma 0.9 0.8 - 1.7 g/dL [facility] PES - Abn Protein Band 1 TNP [facility] PES-Abn Protein Band 2 TNP [facility] PES-Abn Protein Band 3 TNP [facility] Prot Elec - Interpretation SEE NOTE [facility] Comment:Normal Serum Protein Electrophoresis Pattern.No abnormal protein bands (M-protein) detected.THIS TEST WAS PERFORMED AT:[employer] [place] [phone] SWARTZ MD 11/04/2024 11:1 6 AM EDT 11/04/2024 11:16 AM EDT us Generic External Data Provider LAB BLOOD ORDERAB LES Final Result Performing Organization Address [facility] Co de Phone Number [facility] [address] [place] [phone] * PTH, Intact Without Calcium (11/04/2024 11:16 AM EDT) Parathyroid Hormone, Intact 52.6 8.7 - 77.1 pg/mL [facility] Blood Venous blood specimen / Unknown 11/04/2024 11:16 AM EDT 11/04/2024 11:16 AM EDT us Jeremy Granado MD LAB BLOOD ORDERABLES Fin al Result Performing Organization Address [facility]/ZIP Co de Phone Number [facility] [address] [place] [phone] * (ABNORMAL) Comprehensive Metabolic Panel (11/04/2024 11:16 AM EDT) Only the most recent of2 resultswithin the time period is included. Sodium 145 135 - 145 mmol/L [facility] Potassium 3.6 3.3 - 5.1 mmol/L [facility] Chloride 109(H) 96 - 108 mmol/L [facility] Carbon Dioxide 29 22 - 29 mmol/L [facility] Anion Gap 11(L) 12 - 20 [facility] Urea Nitrogen (BUN) 15 9 - 16 mg/dL [facility] Creatinine, Serum 0.60 0.5 - 1.4 mg/dL [facility] Estimated Glomerular Filt Rate >60 [facility] Comment:Chronic Kidney Disea se: Estimated GFR < 60 mL/min/1.27y2Ecwmgu Kidney Disease: Estimated GFR < 15 mL/min/1.73m2 Glucose 85 60 - 115 mg/dL [facility] Calcium 9.5 8.4 - 10.2 mg/dL [facility] Bilirubin, Total 0.7 0.0 - 1.0 mg/dL [facility] Aspartate Amino Transferase 22 5 - 31 U/L [facility] Alanine Aminotransferase 12 0 - 31 U/L [facility] Total Protein 7.4 6.5 - 8.0 g/dL [facility] Albumin Level 4.6 3.5 - 5.0 g/dL [facility] Alkaline Phosphatase 50 39 - 117 U/L [facility] 11/04/2024 11:1 6 AM EDT 11/04/2024 11:16 AM EDT us Generic External Data Provider LAB BLOOD ORDERAB LES Final Result [facility] [address] [place] [phone] * Protein Creatinine Ratio, Urine (11/04/2024 11:02 AM EDT) Creatinine, Urine 65.45 mg/dL [facility] Protein, Total, Random Urine <7 <12 mg/dL [facility] Protein/Creatin ine Ratio, Ur TNP <0.2 [facility] Comment:Unable to calculate urine protein creatinine ratio due tolow creatinine or protein result. 11/04/2024 11:0 2 AM EDT 11/04/2024 11:44 AM EDT us Generic External Data Provider LAB URINE ORDERAB LES Final Result Performing Organization Address [facility] Co de Phone Number [facility] [address] [place] [phone] * Urinalysis Complete (11/04/2024 11:02 AM EDT) Color Urine Yellow [facility] Appearance Urine Clear [facility] PH 5.5 5.0 - 9.0 [facility] Glucose Urine UA Negative Negative mg/dL [facility] Urine Blood Negative Negative [facility] Specific [place] - Urine 1.010 1.005 - 1.025 [facility] Urine Protein Negative Neg-Trace mg/dL [facility] Urine Ketones Negative Negative mg/dL [facility] Nitrite Urine Negative Negative [facility] Leukocyte Esterase Urine Negative Negative [facility] RBC Urine 0-2 0 - 2 /HPF [facility] Urine WBC 0-5 0 - 5 /HPF [facility] Urine Squamous Epithelial Cell 0-2 0 - 2 /HPF [facility] Urine Bacteria None Seen None Seen [facility] Hyaline Casts, Urine 0-2 0 - 2 /LPF [facility] 11/04/2024 11:0 2 AM EDT 11/04/2024 11:44 AM EDT us Generic External Data Provider LAB URINE ORDERAB LES Final Result Performing Organization Address [facility] Co de Phone Number [facility] [address] [place] [phone] * BI Mammogram Screening Tomosynthesis Bilateral (07/21/2024 2:52 PM EDT) Anatomical Region Laterality Modality Breast Bilateral Mammography 07/21/2024 2:52 PM EDT Narrative 07/27/2024 7:20 PM EDT [facility] [address] [place] [address] Mammography Report Signed Patient: Nicolasa Reich MR#: [id number] : 1955 Acct:[id number] Age/Sex: 68 / F ADM Date: 07/21/24 Loc: HO.MAMMO Attending Dr: Juan Jose Castañeda NP Ordering Physician: JUAN JOSE CASTAÑEDA NP Results: 1Negative Date of Service: 07/21/24 Follow Up: 1 Year From Orig inal Mammogram Procedure(s): MM tomosynthesis screening BI Accession Number(s): [id number] cc: Jeremy Granado MD; JUAN JOSE CASTAÑEDA [...] 07/27/24 1917 DD/ 1452 TD/TT: 07/21/24 1512 Adjunct Political Science Instructor: Procedure Note Donotuseinterpreter, Image - 07/27/2024 [facility] [address] [place] [address] Dr. [place], EDMUND [address] Mammography Report Signed Patient: Nicolasa ReichMR#: [id number] : 1955cct:[id number] Age/Sex: 68 / FADM Date: 07/21/24 Loc: HO.MAMMO Attending Dr: Juan Jose Castañeda TITLE INSURANCE AGENT Ordering Physician: JUAN JOSE CASTAÑEDA NPResults: 1Negative Date of Service: 07/21/24Follow Up: 1 Year From Orig inal Mammogram Procedure(s): MM tomosynthesis screening BI Accession Number(s): [id number] cc: Jeremy Granado MD; JUAN JOSE CASTAÑEDA [...] 07/27/24 1917 DD/ 1452 TD/TT: 07/21/24 1512 Adjunct Political Science Instructor: us Juan Jose Castañeda ANP IMG BI PROCEDURES Edited Result - Final * Hm Colonoscopy (04/16/2020) Colonoscopy Normal Normal Narrative Taya Vargas - 04/16/2020 See legacy note on 05/03/2020. Repeat in 5 years Historical Provider HEALTH MAINTENANCE Final Result from Last 3 Months or Most Recently Relevant to Health Maintenance Insurance [place] [employer] [place] [id number] [facility] AD[facility] Care Teams Concrete Pipe Making Machine Operator Relationship Specialty Start Date End Date Jeremy Granado MD [address] [place] [address] PCP - General Internal Medicine 09/08/24
--- OUTSIDE RECORDS SUMMARY | 2025-01-07 14:54 | XMS_ITS | Encounter Summary ---
Author Organization [employer] Address [address] [place] [address] Care Team Providers Care Regional Flatbed Truck Driver Name Role Phone Rosanne Ayala Primary Care Provider [phone] Rosanne Ayala Primary Care Provider [phone] Lilian Granado MD Primary Care Provider + Reason for Visit * Reason Onset Date Comments Extraction 11/03/2022 Encounter Details Date Type Department Care Team ([facility] st Contact Info) Description 11/03/2022 Telephone [facility] ADULT DENTAL [address] [place], [place] [phone] Bro Horne DDS [address] [place], [place] [phone] Extraction Social History Tobacco Use Types Packs/Day [...] Description 02/24/2025 2:00 PM EST Office Visit [facility] OPTOM[facility] [address] [place], [place] [phone] Jyotsna Patel, OD [address] [place] [address] documented as of this encounter Visit Diagnoses Not on filedocumented in this encounter Care Teams Regional Flatbed Truck Driver Relationship Specialty Start Date End Date Rosanne Ayala ANP [address] [place] [address] PCP - General Family Medicine 01/23/20 09/04/24 Rosanne Ayala ANP [address] [place] [address] PCP - General Family Medicine 09/05/24 09/07/24 Lilian Granado MD [address] [place] [address] PCP - General Internal Medicine 09/08/24 documented as of this encounter
--- OUTSIDE RECORDS SUMMARY | 2025-01-07 14:54 | XMS_ITS | Encounter Summary ---
Author Organization [employer] [facility] Address [address] [facility] [address] [place] [address] Care Team Providers Care Supervisor Particleboard Name Role Phone Rosanne Ayala Primary Care Provider [phone] Rosanne Ayala ANP Primary Care Provider [phone] Lilian Granado MD Primary Care Provider + Encounter Details Date Type Department Care Team (Latest Contact Info) Description 05/20/2020 Abstract [facility] CONVERSIONS Dental, Provider, DDS Social History [...] Description 02/24/2025 2:00 PM EST Office Visit [facility] OPTOMETRY [address] [place] [address] Jyotsna Patel, OD [address] [place] [address] documented as of this encounter Visit Diagnoses Not on filedocumented in this encounter Care Teams Supervisor Particleboard Relationship Specialty Start Date End Date Rosanne Ayala ANP [address] [place] [address] PCP - General Family Medicine 01/23/20 09/04/24 Rosanne Ayala ANP [address] [place] [address] PCP - General Family Medicine 09/05/24 09/07/24 Lilian Granado MD [address] [place] [address] PCP - General Internal Medicine 09/08/24 documented as of this encounter
--- OUTSIDE RECORDS SUMMARY | 2025-01-07 14:54 | XMS_ITS | Encounter Summary ---
Author Organization [employer] [facility] Address [address] [facility] [address] [place] [address] Care Team Providers Care Senior Quality Assurance Engineer Name Role Phone Rosanne Ayala Primary Care Provider Rosanne Ayala ANP Primary Care Provider [phone] Lilian Granado MD Primary Care Provider + Encounter Details Date Type Department Care Team (Latest Contact Info) Description 06/30/2021 Abstract [facility] CONVERSIONS Dental, Provider, DDS Social History [...] Description 02/24/2025 2:00 PM EST Office Visit [facility] OPTOMETRY [address] [place] [address] Jyotsna Patel, OD [address] [place] [address] documented as of this encounter Visit Diagnoses Not on filedocumented in this encounter Care Teams Senior Quality Assurance Engineer Relationship Specialty Start Date End Date Rosanne Ayala ANP [address] [place] [address] PCP - General Family Medicine 01/23/20 09/04/24 Rosanne Ayala ANP [address] [place] [address] PCP - General Family Medicine 09/05/24 09/07/24 Lilian Granado MD [address] [place] [address] PCP - General Internal Medicine 09/08/24 documented as of this encounter
--- OUTSIDE RECORDS SUMMARY | 2025-01-07 14:54 | XMS_ITS | Encounter Summary ---
Author Organization [employer] Address [address] [place] [address] Care Team Providers Care [employer] Handler Name Role Phone Rosanne Ayala Primary Care Provider [phone] Rosanne Ayala Primary Care Provider [phone] Lilian Granado MD Primary Care Provider + Encounter Details Date Type Department Care Team ([facility] st Contact Info) Description 01/23/2023 Telephone [facility] [address] [place], [place] [id number] Bro Horne DDS [address] [place], [place] [id number] Social History Tobacco Use Types Packs/Day Years [...] Visit [facility] [address] [place] [address] Jyotsna Patel, OD [address] [place] [address] documented as of this encounter Visit Diagnoses Not on filedocumented in this encounter Care Teams Auto [employer] Handler Relationship Specialty Start Date End Date Rosanne Ayala ANP [address] [place] [address] PCP - General Family Medicine 01/23/20 09/04/24 Rosanne Ayala ANP [address] [place] [address] PCP - General Family Medicine 09/05/24 09/07/24 Lilian Granado MD [address] [place] [address] PCP - General Internal Medicine 09/08/24 documented as of this encounter
== END 2025-01-07 12:41 | disposition home or self-care (01) ==
LOC: HO.US 12:40
PROVIDERS: PCP Nurse Practitioner Primary Care; Visit Provider Internal Medicine
DX: N13.30 Unspecified hydronephrosis (principal)
CPT/HCPCS: 76775

== ENCOUNTER → 2025-01-07 13:00 | Outpatient (BNV) | payer OTHER, SELFPAY | PROVIDERS: PCP Nurse Practitioner Primary Care; Visit Provider Radiology Diagnostic Radiology | DX: N28.1 Cyst of kidney, acquired (principal) | CPT/HCPCS: 76775 ==

== ENCOUNTER 2025-01-08 13:44 | Outpatient (REF) | payer OTHER, SELFPAY ==
--- NOTE | 2025-01-08 13:51 | PFT_ITS ---
Indication: Sjogren's Spirometry FEV1 to FVC 88%; FEV1 1.74 L; FVC 1.97 L. No significant response to bronchodilators noted. Lung Volumes Total lung capacity 103% predicted; residual volume 140% predicted; expiratory reserve volume 39% predicted Diffusion Capacity DLCO 76% predicted Comparisons None Interpretation No obstructive nor restrictive ventilatory defects identified. No significant response to bronchodilators noted. Normal maximum voluntary ventilation. Lung volumes are normal except for significantly elevated residual volume suggesting air trapping. This may be associated with small airways disease. In addition to that the patient has a mild diffusion impairment. Also need to correct for hemoglobin. Clinical correlation warranted. MTDD
[2025-01-08 14:22] VITALS: PULSE 98; O2SAT 99
== END 2025-01-08 13:45 | disposition home or self-care (01) ==
LOC: HO.RESP 13:44
PROVIDERS: PCP Nurse Practitioner Primary Care; Visit Provider Student in an Organized Health Care Education/Training Program
DX: M35.01 Sjogren syndrome with keratoconjunctivitis (principal)
CPT/HCPCS: 94060; 94640; 94727; 94729

== ENCOUNTER → 2025-01-08 13:51 | Outpatient (BNV) | payer OTHER, SELFPAY | PROVIDERS: PCP Nurse Practitioner Primary Care; Visit Provider Hospitalist | DX: M35.01 Sjogren syndrome with keratoconjunctivitis (principal) | CPT/HCPCS: 94060; 94727; 94729 ==